=== PATIENT | female | born 1955 | race African-American/Black ===

== ENCOUNTER 2018-03-23 10:25 | Inpatient (IN) | payer SELFPAY ==
[2018-03-23 12:26] LABS: Hemoglobin 10.1 g/dL (12.0-16.0); Mean Corpuscular HGB CONC 29.9 g/dL (32.0-36.0); Mean Corpuscular Hemoglobin 22.3 pg (27.0-31.0); Mean Corpuscular Volume 74.6 fl (81.0-99.0); Mean Platelet Volume 9.4 fL (7.4-10.4); Platelet Count 320 thou/uL (130-400); RBC Distribution Width 17.9 % (11.5-14.5); Red Blood Cell (RBC) Count 4.52 mill/uL (4.20-5.40); White Blood Cell (WBC) Count 8.6 thou/uL (4.8-10.8)
[2018-03-23 12:36] LABS: ALT (SGPT) 19 U/L (8-55); AST (SGOT) 17 U/L (5-34); Albumin 3.8 g/dL (3.4-4.8); Alkaline Phosphatase 55 U/L (40-150); Anion Gap 14 mmol/L (10-20); BUN (Urea Nitrogen) 9 mg/dL (9.8-20.1); Bilirubin, Total 0.4 mg/dL (0.2-1.2); Calc. Creatinine Clearance 0 mL/min (70-130); Calcium 9.8 mg/dL (7.8-10.44); Carbon Dioxide 29 mmol/L (23-31); Chloride 99 mmol/L (98-107); Estimated GFR-MDRD Greater than 90; Globulin 2.7 g/dL (2.4-3.5); Glucose 105 mg/dL (80-115); Lipase 16 U/L (8-78); Potassium 3.7 mmol/L (3.5-5.1); Protein, Total 6.5 g/dL (6.0-8.3); Sodium 138 mmol/L (136-145)
[2018-03-23 12:46] LABS: #Eosinphils 0.2 thou/uL (0.0-0.7); #Lymphocytes 1.8 thou/uL (1.20-3.40); #Monocytes 0.8 thou/uL (0.11-0.59); #Neutrophils 5.8 thou/uL (1.40-6.50); %Basophils 0.4 % (0.0-1.0); %Lymphocytes 20.6 % (21.0-51.0); %Monocytes 9.6 % (0.0-10.0); %Neutrophils 67.4 % (42.0-75.0); Elliptocytes SLIGHT = 2-5 cells (100X) (0-1/hpf); Hypochromia MODERATE=16-30 cells (100X) (0-5/hpf); MDiff Complete? YES; Microcytosis MODERATE=15-30 cells (100X) (0-5/hpf); Ovalocytes SLIGHT = 2-5 cells (100X) (0-1/hpf); PLT Morphology Comment Appears Adequate; Polychromasia MODERATE = 3-4 cells (100X) (0-2/hpf)
[2018-03-23 13:02] LABS: CKMB 0.9 ng/mL (0-6.6)
[2018-03-23] MEDS ORDERED: Ondansetron ODT 4 MG TAB ONE (13:34)
--- NOTE | 2018-03-23 13:42 | ULT ---
ULTRASOUND GALLBLADDER RIGHT UPPER QUADRANT: HISTORY: Chest pain. Abdominal pain. COMPARISON: None. FINDINGS: The visualized portion of the pancreas is unremarkable. The liver measures 13 cm in length. The gallbladder is normal. The common bile duct is normal. Sonographic Garcia sign is negative. No pericholecystic fluid. The right kidney measures 11 x 5.1 x 5.7 cm. The portal vein shows patent antegrade flow. IMPRESSION: 1. No acute abnormality. 2. No gallbladder pathology. POS: [facility]
[2018-03-23 15:01] LABS: Bilirubin Negative (Negative); Blood, Urine Negative (Negative); Clarity CLEAR (Clear); Glucose, Urine (Dipstick) Negative (Negative); Leukocyte Negative (Negative); Nitrite Negative (Negative); Protein, Urine (Dipstick) Negative (Neg-Trace); pH, Urine 6.5 (5.0-9.0)
--- NOTE | 2018-03-23 16:06 | CT ---
CT ABDOMEN AND PELVIS WITH ORAL AND IV CONTRAST: HISTORY: Nausea, vomiting, abdominal pain, and syncope. FINDINGS: Comparison is made with the exam of 11/01/16. The visualized lung snow are unremarkable. There is a large left Bochdalek's hernia with intrathor acic herniation of the stomach and portions of the pancreas. This is stable since the last exam. There is a tiny low-density lesion in the left lobe of the liver. There are calcified granulomas in the liver and spleen. No calcified gallstones are seen. The pancreas, adrenal glands, and left kidn ey are normal. A small low-density lesion in the right kidney is again seen, likely a cyst. No free air, free fluid, or lymphadenopathy is noted in the abdomen or pelvis. There are vascular ca lcifications without evidence of aneurysmal dilatation of the abdominal aorta. There are postop baker ges of hysterectomy. No calcified gallstones are seen. There are vascular calcifications without ev idence of aneurysmal dilatation of the abdominal aorta. There are degenerative changes in the spine. A small umbilical hernia with an nonobstructed loop of small bowel is again seen. The small bowel lo ops are not abnormally dilated. There is colonic diverticulosis without evidence of diverticulitis. A normal-appearing appendix is present. IMPRESSION: 1. Large left-sided Bochdalek's hernia containing nondilated stomach and portion of the pancreas. 2. Small umbilical hernia containing unobstructed loop of small bowel. 3. Colonic diverticulosis without diverticulitis. POS: [facility]
[2018-03-23 17:23] LABS: Troponin I 0.037 ng/mL (< 0.028)
[2018-03-23 18:20] VITALS: BMI 40.3
[2018-03-23] MEDS ORDERED: Sodium Chloride 0.9% 1,000 ML IV SCH (18:30)
[2018-03-23] MEDS ORDERED: Ondansetron ODT 4 MG TAB SL PRN (19:21)
[2018-03-23] MEDS ORDERED: Ondansetron HCl/PF 4 MG/2 ML Vial IVP PRN (19:21)
[2018-03-23] MEDS ORDERED: PROVENTIL INHALER 6.7 G (200 INHALATIONS) INH PRN (19:58)
[2018-03-23] MEDS ORDERED: HYDROcodone/Acetaminophen 5/325 mg Tablet PO PRN ×2 (19:58→20:18)
[2018-03-23] MEDS ORDERED: Furosemide 20 MG TAB PO PRN (19:58)
[2018-03-23 20:24] LABS: Troponin I 0.038 ng/mL (< 0.028)
[2018-03-23] MEDS ORDERED: Dextrose 50% Abboject 50 ML SYRINGE SLOW IVP PRN (20:27)
[2018-03-23] MEDS ORDERED: HumaLOG 300 UNITS/3 ML VIAL SC PRN (20:27)
[2018-03-23] MEDS ORDERED: Dextrose 5% in Water 1,000 ML IV PRN (20:27)
[2018-03-23] MEDS: Sodium Chloride 0.9% 500 ML IV SCH (20:37)
[2018-03-23 21:08] LABS: #Eosinphils 0.2 thou/uL (0.0-0.7); #Lymphocytes 1.9 thou/uL (1.20-3.40); #Monocytes 0.9 thou/uL (0.11-0.59); #Neutrophils 5.5 thou/uL (1.40-6.50); %Basophils 0.5 % (0.0-1.0); %Eosinophils 2.4 % (0.0-10.0); %Lymphocytes 22.5 % (21.0-51.0); %Monocytes 10.1 % (0.0-10.0); %Neutrophils 64.5 % (42.0-75.0); Hemoglobin 9.7 g/dL (12.0-16.0); Mean Corpuscular HGB CONC 30.8 g/dL (32.0-36.0); Mean Corpuscular Hemoglobin 22.2 pg (27.0-31.0); Mean Corpuscular Volume 72.2 fL (78.0-98.0); Mean Platelet Volume 8.8 fL (7.4-10.4); Platelet Count 328 thou/uL (130-400); RBC Distribution Width 17.7 % (11.5-14.5); Red Blood Cell (RBC) Count 4.38 mill/uL (4.20-5.40); White Blood Cell (WBC) Count 8.6 thou/uL (4.8-10.8)
--- NOTE | 2018-03-23 23:10 | CT ---
CT BRAIN NONCONTRAST: 03/23/18 HISTORY: 62-year-old female with dizziness, syncope, and generalized weakness. FINDINGS: There is no midline shift or any other mass effect. There is no evidence of acute intracranial hemor rhage, large cortical infarct, obstructive hydrocephalus, or extraaxial fluid collection. The calvar ium is intact. IMPRESSION: No acute intracranial findings. sameer [] POS: [facility]
[2018-03-23] MEDS: Sodium Chloride 0.9% 1,000 ML IV SCH (23:14)
[2018-03-23] MEDS: Meclizine HCl 12.5 MG TAB PO PRN (23:15)
[2018-03-23] MEDS ORDERED: Promethazine HCl 25 MG/ML VIAL SLOW IVP PRN (23:34)
[2018-03-23] MEDS: Promethazine HCl 25 MG/ML VIAL SLOW IVP SCH (23:49)
[2018-03-24] MEDS: Meclizine HCl 12.5 MG TAB PO PRN (00:28)
[2018-03-24] MEDS: Gabapentin 300 MG CAP PO SCH ×4 (00:28→19:48)
[2018-03-24] MEDS ORDERED: Lorazepam 2 MG/ML VIAL SLOW IVP SCH (01:45)
--- NOTE | 2018-03-24 02:18 | HP ---
TIME OF EVALUATION: 08:00 p.m. CODE STATUS: FULL CODE. CHIEF COMPLAINT: Syncope. HISTORY OF PRESENT ILLNESS: This is a 62-year-old female patient with past medical history of congestive heart failure, previous [place], diabetes, RA, on steroids, hypertension, came to the hospital after having an episode of syncope. The patient was in the restroom, she felt nauseated, vomit, had an episode of orthostatic hypotension, and passed out, did not hit the floor because the patient was with a family member that was helping her in the bathroom. The patient has had no recent cardiac workup in the past 2 years, last colonoscopy was about 10 years ago, she did report having these episodes in the past, but has not been this severe. REVIEW OF SYSTEMS: General: The patient reported no fever, no chills, generalized weakness. Respiratory: No cough, no sputum production, no shortness of breath. Cardiovascular: No palpitations, no chest pain. Gastrointestinal: The patient reported nausea, vomiting. No diarrhea. Abdominal pain was reported. CLOTHING SORTER: The patient reported spells of dizziness, no headache. She did report feeling lightheaded. Genitourinary: No burning on urination. EXTREMITIES: No leg swelling. All other systems were reviewed and negative except for the findings mentioned above. PAST MEDICAL HISTORY: Coronary artery disease, hypertension, diabetes, RA. PAST SURGICAL HISTORY: Hysterectomy. PSYCHIATRIC HISTORY: No previous psychiatric history. SOCIAL HISTORY: No alcohol, no drugs. No smoking history. FAMILY HISTORY: Reviewed and noncontributory for current presentation. PHYSICAL EXAMINATION: GENERAL APPEARANCE: The patient is alert, oriented, not in acute distress. HEENT: Eyes: Normal conjunctivae. Moist oral mucosa. RESPIRATORY: Bilateral air entry, no rales, no wheezing, symmetric expansion. CARDIOVASCULAR: Normal rate, regular rhythm, occasionally tachycardic, no murmurs, no gallop, no edema. ABDOMEN: Soft, normal bowel sounds. MUSCULOSKELETAL: Baseline range of motion and strength, no tenderness. SKIN: Warm and intact. No pallor, no rash. NEUROLOGIC: The patient is at her baseline sensory. No history of any new focal weakness. Cranial nerve seems to be intact. PSYCHIATRIC: The patient has no anxiety, oriented, optimal judgment. LABORATORY DATA: Labs are reviewed. The patient has white count 9.6, hemoglobin 10.1, platelet count 29. Chemistry: Sodium 138, potassium 3.7, chloride 99, carbon dioxide 29, anion gap 14, BUN 9, creatinine 0.77, GFR greater than 90. Troponin has been trended. The patient had initial troponin 0.020; second troponin at 4:00 p.m., 0.037; third troponin at 8:00 p.m., 0.038; next troponin to be done at 4:00 a.m. RADIOLOGY: Radiology was reviewed. 1. A CAT scan of the abdomen and pelvis with oral and IV contrast show, both hernia containing nondilated stomach and portion of the pancreas. 2. Small umbilical hernia containing a nonobstructed loop of small bowel. 3. Colonic diverticulosis without diverticulitis. 4. Abdominal ultrasound showed no acute abnormalities, no gallbladder pathology. Brain CT showed no acute intracranial findings. EKG as discussed with her performing physician from the ER. The patient has normal sinus rhythm at a rate of 77 with occasional T-waves abnormalities that are nonspecific, no ventricular hypertrophy. ASSESSMENT AND PLAN: The patient was admitted to the hospital for the following medical condition: 1. Syncope: The patient had an episode of syncope with total loss of consciousness, she has had this episode in the past, but this one was very severe. The patient is also having episodes of dizzy spells where she gets sweaty; however, when she had those in the hospital, the vital signs have been stable. No telemetry abnormalities. We will do workup in the morning with echo , carotid Doppler.d dimer added due to persistent tachycardia, would proceed with ct angio if positive. Depending on those results, we will plan for further workup. Continue to monitor on tele 2. Uncontrolled hypertension. The patient presented with systolic blood pressure in the 150s, this has gotten better during the stay. Reconcile home medications, adjust the treatment as needed. 3. History of diabetes, this is controlled. Reconcile home medications, adjust the treatment as needed. 4. Mildly elevated troponin in the range of 0.037 and 0.038, we will trend, acute intervention at this point. EKG with no new ischemic findings. We will monitor. Adjust the treatment as needed. 5. History of microcytic anemia, will be related to chronic blood loss, patient 's recommendation is to go for colonoscopy, this can be done as outpatient. 6. History of rheumatoid arthritis, on chronic steroids, we will continue for now. This problem is chronic, seems to be stable 7. History of chronic obstructive pulmonary disease, this problem is chronic, seems to be stable at this point. 8. Add deep venous thrombosis prophylaxis. MTDD
[2018-03-24] MEDS: guaiFENesin 200 MG TAB PO SCH ×5 (05:41→23:07)
[2018-03-24 07:01] LABS: Hemoglobin 10.1 g/dL (12.0-16.0); Mean Corpuscular HGB CONC 29.8 g/dL (32.0-36.0); Mean Corpuscular Hemoglobin 22.1 pg (27.0-31.0); Mean Corpuscular Volume 74.4 fL (78.0-98.0); Platelet Count 303 thou/uL (130-400); RBC Distribution Width 17.8 % (11.5-14.5); Red Blood Cell (RBC) Count 4.55 mill/uL (4.20-5.40); White Blood Cell (WBC) Count 8.2 thou/uL (4.8-10.8)
[2018-03-24 07:05] LABS: Anion Gap 15 mmol/L (10-20); BUN (Urea Nitrogen) 8 mg/dL (9.8-20.1); Calc. Creatinine Clearance 134 mL/min (70-130); Calcium 9.6 mg/dL (7.8-10.44); Carbon Dioxide 29 mmol/L (23-31); Chloride 99 mmol/L (98-107); Estimated GFR-MDRD Greater than 90; Glucose 83 mg/dL (80-115); Potassium 3.3 mmol/L (3.5-5.1); Sodium 140 mmol/L (136-145)
[2018-03-24 07:09] LABS: Troponin I 0.113 ng/mL (< 0.028)
[2018-03-24 07:36] LABS: Band 3 % (5-11); Eosinophils 5 % (0-10); Hypochromia SLIGHT = 6-15 cells (100X) (0-5/hpf); Lymphocytes 12 % (21-51); MDiff Complete? YES; Metamyelocyte 1 % (0-0); Microcytosis MODERATE=15-30 cells (100X) (0-5/hpf); Monocytes 11 % (0-10); Neutrophil 68 % (42-75); PLT Morphology Comment Appears Adequate; Polychromasia MODERATE = 3-4 cells (100X) (0-2/hpf)
[2018-03-24] MEDS: Sodium Chloride 0.9% 500 ML IV SCH (07:42)
--- NOTE | 2018-03-24 09:05 | PDOC.PN ---
- Subjective Encounter Start Date: 03/24/18 Encounter Start Time: 09:03 Ms. Anand was seen today in follow-up. She was very restless last night. Her daughter says she appeared very short of breath and anxious. She couldn't find a comfortable position. She was noted to have lower oxygen saturations when she takes her oxygen off, down to the 70's. She denies chest pain now, and the abdominal pain is mainly on the flanks. - Objective Resuscitation Status: Resuscitation Status FULL:Full Resuscitation MAR Reviewed: Yes Vital Signs & Weight: Vital Signs (12 hours) Temp Pulse Resp BP BP Pulse Ox 03/24/18 08:00 98.7 F 116 H 12 03/24/18 07:30 70 L 03/24/18 07:15 98.7 F 116 H 12 139/84 94 L 03/24/18 00:28 119 H 18 144/83 H 96 03/23/18 22:10 82 18 130/63 I&O: 03/23/18 03/24/18 03/25/18 06:59 06:59 06:59 Intake Total 670 Balance 670 Result Diagrams: 03/24/18 06:40 03/24/18 06:40 Additional Labs: Accuchecks 03/23/18 20:21 POC Glucose 98 Phys Exam - Physical Examination HEENT: PERRLA Respiratory: no wheezing, no rales, no rhonchi, clear to auscultation bilateral heart rate is rapid, no murmurs Gastrointestinal: soft, non-tender, positive bowel sounds Musculoskeletal: edema present Dx/Plan (1) Syncope Code(s): R55 - SYNCOPE AND COLLAPSE Status: Acute (2) Insulin dependent type 2 diabetes mellitus, controlled Code(s): E11.9 - TYPE 2 DIABETES MELLITUS WITHOUT COMPLICATIONS; Z79.4 - LONGTERM (CURRENT) USE OF INSULIN Status: Chronic Comment: Resume home NPH 35u HS, ADA, accuchecks (3) Morbid obesity Code(s): E66.01 - MORBID (SEVERE) OBESITY DUE TO EXCESS CALORIES Status: Chronic (4) Rheumatoid arthritis Code(s): M06.9 - RHEUMATOID ARTHRITIS, UNSPECIFIED Status: Chronic Qualifiers: Laterality: unspecified laterality Comment: Resume home Gabapentin, Motrin and Prednisone. (5) Hypertension Code(s): I10 - ESSENTIAL (PRIMARY) HYPERTENSION Status: Acute - Plan * Syncope- I suspect this is vagal medicated- will await Echo results as well as carotid dopplers * Tachycardia, and hypoxemia, as well as apprehension - agree with CTA of the chest to rule of PE * Abdominal pain- difficult to characterize- this has improved some, and CT scan of the abdomen is negative for obstruction , even with the hernia, but this appears to be an old finding- if this persists will need to consult GI. * RUPAL- patient uses CPAP at home- will need to restart this during the hospitalization * HTN- blood pressure is stable * DM- blood glucose is stable * Elevated troponin- ? etiology, if she has a PE this would explain this, if not , then will consider cardiology work-up, as the nausea, and upper abdominal pain is worse with movement, and maybe this is an anginal equivalent
[2018-03-24] MEDS: Sodium Chloride 0.9% 1,000 ML IV SCH (09:54)
[2018-03-24] MEDS: Enoxaparin Sodium 40 MG/0.4 ML SYRINGE SC SCH ×2 (10:10→12:20)
[2018-03-24] MEDS: predniSONE 20 MG TAB PO SCH ×2 (10:10→11:38)
[2018-03-24] MEDS: Lisinopril/Hydrochlorothiazide 20/25 mg Tablet PO SCH ×2 (10:11→12:20)
--- NOTE | 2018-03-24 11:58 | ULT ---
CAROTID ULTRASOUND: Comparison: 04-27-15 History: Syncope. Technique: Multiplanar grayscale and color doppler images were obtained in a carotid ultrasound. Spec tral analysis of the doppler waveforms were performed. FINDINGS: There is no significant plaque in either common or internal carotid artery. Examination was limited s econdary to tortuous vessels, heavy breathing, and snoring during the examination. Peak systolic velocity in the right ICA is 53 cm/sec. Peak systolic velocity in the right CCA is 89 c m/sec. The right ICA/CCA ratio is 0.6. Peak systolic velocity in the left ICA is 84 cm/sec. Peak systolic velocity in the left CCA is 174 cm /sec. The left ICA/CCA ratio is 0.5. Neither vertebral artery could be visualized. IMPRESSION: No evidence of hemodynamically significant stenosis of the carotid arteries. POS: [facility]
--- NOTE | 2018-03-24 12:05 | CT ---
CONTRAST ENHANCED CTA CHEST: History: Elevated D-Dimer. Technique: Contrast enhanced CTA of the chest was performed. 2D and 3D reconstructed images were perf ormed on an independent 3D workstation. FINDINGS: Left hilar and subcarinal lymph node calcifications seen. An area of small focal calcifications seen in the area of scarring in the left lower lobe. There is elevation of the left hemidiaphragm. Areas of patchy airspace opacity seen in the right upper lobe seen on image 31. This was not present on the patient's previous comparison CT from 04-26-15. This may represent an area of newly developed m ass versus focal pneumonia. Follow up films to resolution recommended. No definite evidence of abnormality seen in the thoracic aorta. No evidence of filling defects seen i n the pulmonary arteries to suggest pulmonary emboli. There is a large calcified lesion just inferior to the left thyroid lobe. This is stable and unchange d, likely representing calcified lymph node, unchanged since the 2015 exam. IMPRESSION: 1. No evidence of filling defects seen to suggest pulmonary emboli. 2. Newly developed of opacity in the right upper lobe possibly representing an area of scar versus ma ss versus pneumonia. Follow up films to resolution recommended. POS: [facility]
[2018-03-24 14:21] LABS: Troponin I 0.112 ng/mL (< 0.028)
[2018-03-24 17:37] LABS: Troponin I 0.101 ng/mL (< 0.028)
[2018-03-24] MEDS: Pantoprazole 40 MG VIAL IVP SCH (19:48)
[2018-03-24] MEDS: Promethazine HCl 25 MG/ML VIAL SLOW IVP SCH (23:06)
--- NOTE | 2018-03-25 01:44 | CON ---
DATE OF CONSULTATION: 03/24/2018 REASON FOR CONSULTATION: Abdominal pain. CONSULTING PHYSICIAN: Dr. Manuel Albarran. HISTORY OF PRESENT ILLNESS: The patient is a 62-year-old -Turkmen female with past medical history of coronary artery disease/myocardial infarction, congestive heart failure, diabetes, rheumatoid arthritis on steroid administration, and hypertension, initially presenting with complaints of syncope and abdominal pain. She was initially admitted to the hospital for evaluation related to vasovagal syncope experienced at home prior to admission where she had an episode of orthostatic hypotension associated with diaphoresis and passed out on the floor of her bathroom. However, on admission, she also endorsed increased abdominal pain located in the left upper quadrant and right upper abdominal quadrants. She states that this pain has been going on intermittently for the last month and would occur approximately one time per week and lasts for 30-45 minutes at a time. The pain is characterized as a gripping type pain, radiating to the left flank and left lower chest and would reach a severity of approximately 6-7/10. The pain is worse with increased constipation and not having a bowel movement as well as increased abdominal gas and better with pressure to the left upper quadrant, left lower ribs as well as taking hydrocodone for pain. Upon questioning, she has approximately one solid to semisolid bowel movement every 2-3 days. This is associated with increased straining in order to facilitate defecation. She is currently on Amitiza as an outpatient, but still having these continued problems of constipation. Currently, denies any nausea, vomiting, fevers, chills, shortness of breath, diarrhea, dysphagia or odynophagia or weight loss. Of note, her most recent colonoscopy was approximately 10 years ago and she is due for repeat colonoscopy and had been scheduled to be seen in the clinic, but has not colonoscopy been able to do so yet. REVIEW OF SYSTEMS: A 10-category review of systems was obtained with all responses negative except for the pertinent positives as listed in the HPI. PAST MEDICAL HISTORY: As per HPI. PAST SURGICAL HISTORY: Hysterectomy. SOCIAL HISTORY: Denies any tobacco, alcohol or illicit drug use. FAMILY HISTORY: Denies any GI malignancies. PHYSICAL EXAMINATION: VITAL SIGNS: Temperature 98.2, pulse 114, blood pressure 122/68, respiratory rate 18, satting 96% on 3 liters nasal cannula. GENERAL: The patient is sitting in bed at bedside, in no acute distress with no conversational dyspnea. Alert and oriented x4. NECK: Supple. No JVD noted. CARDIOVASCULAR: Tachycardic rate with regular rhythm. No discernible murmurs, gallops or rubs. RESPIRATORY: Clear to auscultation bilaterally with no discernible wheezes or rales. ABDOMEN: Normoactive bowel sounds, soft, nontender, nondistended. EXTREMITIES: No cyanosis, clubbing or edema. LABORATORY DATA: CBC with a white blood cell count of 8.2, hemoglobin 10.1, hematocrit 33.9, platelets 303. Chemistry with a sodium of 140, potassium 3.3, chloride 99, CO2 of 29, BUN 8, creatinine 0.74, glucose 83. D-dimer elevated at 0.67. IMAGING DATA: CT of the chest obtained on 03/24/2018 showed left hilar and subcarinal calcified lymph nodes as well as patchy airspace disease, which may represent pneumonia. No evidence of pulmonary embolism. CT abdomen and pelvis obtained on 03/24/2018 showed a large left Bochdalek hernia with intrathoracic herniation of the stomach and portion of the pancreas which is stable when compared to prior examinations. There was no evidence of free air or fluid, but there was also a small umbilical hernia with nonobstructive small bowel within the hernia itself and contrast seen within the segment of small bowel as well. No evidence of diverticulitis. ASSESSMENT AND PLAN: The patient is a 62-year-old -Turkmen female with past medical history of coronary artery disease/myocardial infarction, congestive heart failure, diabetes, rheumatoid arthritis and hypertension, presenting with increased upper abdominal pain. Upper abdominal pain: The patient is presenting with intermittent history of increased left upper quadrant abdominal pain that has been present for the last month, occurring approximately one time per week and would last for 30-45 minutes at a time. This pain seems to be worse with constipation and not having a bowel movement. When viewed in light of her chronic narcotic requirement for chronic pain and frequent use of hydrocodone, this would potentially contribute to her current constipation type symptoms and could potentially generate left upper quadrant and right upper quadrant abdominal pain. However, she does have a large Bochdalek hernia with herniation of a portion of her stomach and the pancreas within the chest cavity which could potentially generate a left upper quadrant, left chest pain. Differential could include the Bochdalek hernia, constipation, gastritis, peptic ulcer disease (especially with concurrent administration of steroids, although she is taking PPI, which will be protective), gastroesophageal reflux disease, median arcuate ligament syndrome (much less likely) and/or GI neoplasm (much less likely). At this time, the majority of her symptoms seem to be related more to constipation and the patient would benefit from a bowel regimen while here in the hospital. RECOMMENDATIONS: 1. We will place the patient on naloxegol 12.5 mg daily for opiate antagonism within the GI tract in attempt to help alleviate constipation. 2. I will also add MiraLax 1 capful/17 grams daily in an attempt to facilitate having a bowel movement. 3. While the patient may be a poor surgical candidate, would consider surgical evaluation of this Bochdalek hernia as it may be contributing to her left upper quadrant abdominal pain. 4. Defer to primary team for evaluation of elevated troponins as this may contribute to left upper quadrant abdominal pain as well. 5. Endoscopic intervention is not necessarily planned at this time. We will continue to monitor. Please call with any questions. [facility]
[2018-03-25] MEDS: guaiFENesin 200 MG TAB PO SCH ×3 (05:19→18:13)
[2018-03-25 06:25] LABS: #Lymphocytes 1.3 thou/uL (1.20-3.40); #Monocytes 1.2 thou/uL (0.11-0.59); %Basophils 0.4 % (0.0-1.0); %Eosinophils 0.4 % (0.0-10.0); %Lymphocytes 13.6 % (21.0-51.0); %Monocytes 12.2 % (0.0-10.0); %Neutrophils 73.3 % (42.0-75.0); Hemoglobin 9.5 g/dL (12.0-16.0); Mean Corpuscular HGB CONC 29.9 g/dL (32.0-36.0); Mean Corpuscular Hemoglobin 22.2 pg (27.0-31.0); Mean Corpuscular Volume 74.4 fL (78.0-98.0); Mean Platelet Volume 9.7 fL (7.4-10.4); Platelet Count 328 thou/uL (130-400); RBC Distribution Width 17.8 % (11.5-14.5); Red Blood Cell (RBC) Count 4.28 mill/uL (4.20-5.40); White Blood Cell (WBC) Count 9.5 thou/uL (4.8-10.8)
[2018-03-25 06:57] LABS: Anion Gap 16 mmol/L (10-20); BUN (Urea Nitrogen) 19 mg/dL (9.8-20.1); Calc. Creatinine Clearance 47 mL/min (70-130); Calcium 9.6 mg/dL (7.8-10.44); Carbon Dioxide 29 mmol/L (23-31); Chloride 97 mmol/L (98-107); Estimated GFR-MDRD 29; Glucose 117 mg/dL (80-115); Potassium 4.2 mmol/L (3.5-5.1); Sodium 138 mmol/L (136-145)
[2018-03-25] MEDS: Lisinopril/Hydrochlorothiazide 20/25 mg Tablet PO SCH (08:38)
[2018-03-25] MEDS: Gabapentin 300 MG CAP PO SCH ×3 (08:38→19:57)
[2018-03-25] MEDS: Pantoprazole 40 MG VIAL IVP SCH ×2 (08:39→19:57)
[2018-03-25] MEDS: predniSONE 20 MG TAB PO SCH (08:40)
[2018-03-25] MEDS: Enoxaparin Sodium 40 MG/0.4 ML SYRINGE SC SCH (08:41)
[2018-03-25] MEDS: Polyethylene Glycol 3350 17 GM Packet PO SCH (08:41)
--- NOTE | 2018-03-25 11:34 | PDOC.PN ---
- Subjective Encounter Start Date: 03/25/18 Encounter Start Time: 11:33 Ms. Anand was seen today in follow-up. She says the abdominal pain has improved. She did not have another episode where she felt as if she were going to pass out. - Objective Resuscitation Status: Resuscitation Status FULL:Full Resuscitation MAR Reviewed: Yes Vital Signs & Weight: Vital Signs (12 hours) Temp Pulse Resp BP BP Pulse Ox 03/25/18 08:38 105 H 117/89 03/25/18 08:00 98.1 F 105 H 18 117/89 100 03/25/18 03:54 99.5 F 104 H 15 118/83 93 L 03/24/18 23:49 98.2 F 109 H 18 96/52 L 100 Weight Weight 232 lb 8 oz I&O: 03/24/18 03/25/18 03/26/18 06:59 06:59 06:59 Intake Total 670 Balance 670 Result Diagrams: 03/25/18 05:31 03/25/18 05:31 Additional Labs: Accuchecks 03/25/18 03/25/18 03/24/18 10:51 06:02 20:51 POC Glucose 145 H 141 H 162 H 03/24/18 03/24/18 16:26 10:48 POC Glucose 151 H 86 Phys Exam - Physical Examination HEENT: PERRLA Respiratory: no wheezing, no rales, no rhonchi, clear to auscultation bilateral Cardiovascular: RRR, no significant murmur, no rub Gastrointestinal: soft, non-tender, positive bowel sounds Musculoskeletal: no edema Dx/Plan (1) Syncope Code(s): R55 - SYNCOPE AND COLLAPSE Status: Acute (2) Insulin dependent type 2 diabetes mellitus, controlled Code(s): E11.9 - TYPE 2 DIABETES MELLITUS WITHOUT COMPLICATIONS; Z79.4 - FCI (CURRENT) USE OF INSULIN Status: Chronic Comment: Resume home NPH 35u HS, ADA, accuchecks (3) Morbid obesity Code(s): E66.01 - MORBID (SEVERE) OBESITY DUE TO EXCESS CALORIES Status: Chronic (4) Rheumatoid arthritis Code(s): M06.9 - RHEUMATOID ARTHRITIS, UNSPECIFIED Status: Chronic Qualifiers: Laterality: unspecified laterality Comment: Resume home Gabapentin, Motrin and Prednisone. (5) Hypertension Code(s): I10 - ESSENTIAL (PRIMARY) HYPERTENSION Status: Acute - Plan * Suspect Vaso-Vagal- no specific treatment need * Pneumonia- Continue Levaquin- can be changed to oral on discharge * Acute renal failure- this is likely as a result of the contrast from the CTA- will give IV fluids, and hold Lisinopril- re-check in the AM * RUPAL- continue nocturnal CPAP * Abdominal pain- GI recommendations appreciated- she is on a trial of Movanik . * Hopefully home in AM if her renal function has improved, and abdominal pain continue to be better
[2018-03-25] MEDS: Sodium Chloride 0.9% 1,000 ML IV SCH ×3 (12:13→19:59)
--- NOTE | 2018-03-25 13:53 | PRG ---
DATE OF SERVICE: 03/25/2018 SUBJECTIVE: The patient is without complaint. She has not had any severe episode of left upper quad rant pain. PHYSICAL EXAMINATION: VITAL SIGNS: Temperature 97.6, blood pressure 134/89, pulse 101. GENERAL: She is alert, conversant, in no distress. CARDIOVASCULAR: Shows normal S1, S2 regular rate and rhythm. CHEST: Shows normal breath sounds. ABDOMEN: Very protuberant, soft. There is tenderness in the high upper lateral quadrant. No skin r agueda. She has good bowel sounds. EXTREMITIES: Shows no edema. LABORATORY DATA: WBC is 9.5, hemoglobin 9.5, platelet count of 328. Sodium 138, potassium 4.2, chlo ride 97, CO2 of 29, creatinine 2.1, BUN of 19. ASSESSMENT: 1. Episodic severe left upper quadrant pain, likely from large left diaphragmatic hernia. Patient h as no obstructive symptoms and no signs of any gastric volvulus either on imaging study or by symptom s. 2. Constipation exacerbated by pain medication, likely not the cause of her pain. RECOMMENDATIONS: 1. In the overall context of her other lung issue and heart issue, I would favor conservative therap y at this point with the hernia unless her pain is more frequent, severe or debilitating. 2. Continue Movantik and MiraLax for constipation. 3. I will follow the patient inpatient and once discharged as outpatient.
[2018-03-26] MEDS: guaiFENesin 200 MG TAB PO SCH ×3 (00:32→12:38)
[2018-03-26 05:21] LABS: Anion Gap 18 mmol/L (10-20); BUN (Urea Nitrogen) 24 mg/dL (9.8-20.1); Calc. Creatinine Clearance 51 mL/min (70-130); Calcium 9.1 mg/dL (7.8-10.44); Carbon Dioxide 21 mmol/L (23-31); Chloride 104 mmol/L (98-107); Estimated GFR-MDRD 31; Glucose 119 mg/dL (80-115); Potassium 4.9 mmol/L (3.5-5.1); Sodium 138 mmol/L (136-145)
[2018-03-26] MEDS: Pantoprazole 40 MG VIAL IVP SCH (09:42)
[2018-03-26] MEDS: Gabapentin 300 MG CAP PO SCH (09:43)
[2018-03-26] MEDS: predniSONE 20 MG TAB PO SCH (09:43)
[2018-03-26] MEDS: Polyethylene Glycol 3350 17 GM Packet PO SCH (09:44)
[2018-03-26] MEDS: Enoxaparin Sodium 40 MG/0.4 ML SYRINGE SC SCH (09:44)
[2018-03-26] MEDS: Sodium Chloride 0.9% 1,000 ML IV SCH (09:44)
--- NOTE | 2018-03-26 11:35 | DIS ---
DATE OF ADMISSION: 03/24/2018 DATE OF DISCHARGE: 03/26/2018 DIAGNOSES AT THE TIME OF DISCHARGE: 1. Syncope diagnosed as vasovagal. 2. Pneumonia, improved. 3. Insulin-dependent diabetes mellitus type 2. 4. Rheumatoid arthritis. 5. Morbid obesity. 6. Hypertension. 7. Acute renal insufficiency, most likely secondary to IV dye. 8. Abdominal pain in the setting of large left diaphragmatic hernia. 9. Exacerbation of her chronic constipation related to the pain medication. CONSULTATIONS: Dr. Elder Weems for Gastrointestinal Service and Dr. Jeronimo Ricketts for Gastrointestinal Service. IMAGES: 1. Brain CT, no active intracranial disease. 2. Abdominal ultrasound, no acute abnormality. 3. CT of the pelvis and abdomen showed; 1) large left-sided ____ hernia containing nondilated stomac h and portion of the pancreas; 2) small umbilical hernia containing nonobstructed loop of small bowel ; 3) colonic diverticulosis without diverticulitis. 4. CT angiogram of the chest which showed; 1) no evidence of filling defects seen to suggest pulmon rosa emboli; 2) newly developed opacity in the right upper lobe, possibly representing an area of scar versus mass, versus pneumonia. 5. Echocardiogram showed left ventricle size normal. Severe concentric left ventricular hypertrophy . Ejection fraction was estimated at 65-70%, left atrium normal, right atrium is normal in size. No evidence of any significant valvular disease. 6. Carotid Doppler study showed no evidence of hemodynamically significant stenosis of the carotid a rteries. HOSPITAL COURSE: The patient is a 62-year-old female with past medical history posi tive for congestive heart failure, previous [place], diabetes, rheumatoid arthritis on steroids, hypertens ion who came to the hospital after having an episode of syncope. Apparently, she was in the restroom , she felt nauseated. She vomited. She had episode of orthostatic hypotension and passed out. She did not hit the floor because the patient was with a family member at this time who was helping her i n the bathroom. Apparently, she had colonoscopy done approximately 10 years ago. She did not have a ny workup done on her heart in the last 2 years. At the time of emergency room visit, her white count was 9.6, hemoglobin 10.1, platelet count 229. S odium 138, potassium 3.7, chloride 99, CO2 29, BUN 9, creatinine 0.77, hemoglobin was 10.1. Initial troponin 0.020, second 0.037 and the third set was 0.038. Her electrocardiogram showed normal sinus rhythm with the rate of 77 with occasional T-wave abnormalities that were nonspecific. The patient g ot admitted to the telemetry floor. She did not have any abnormalities on her telemetry. She underw ent full workup with echo, carotid Doppler, CT angiogram, all of them were negative. Her creatinine went up to above 2 the next day after she had a CAT scan done and it was felt that this was probably the reason why she went into acute failure, although with IV fluids her creatinine went down quickly and today is 1.5, so her lisinopril was put on hold, but clinically she is doing very well. Her bloo d pressure is 110/79, pulse is 97, temperature is 98.9, respiratory rate is 20, O2 saturations 99% on 3 liters. She was seen on exam before she is discharged, she is feeling great. Her family is with her in the o and they are willing to take her home. She will stay on 1800 calories ADA diet. ACTIVITY: As tolerated. MEDICATIONS AT THE TIME OF DISCHARGE: Prednisone 20 mg once a day, omeprazole 20 mg once a day p.r.n . albuterol/Atrovent q.4h. p.r.n., hydrocodone/APAP 5/325 1-2 tablets twice a day p.r.n., gabapentin 300 mg 3 times a day, guaifenesin 200 mg q.6h. p.o., polyethylene glycol 17 grams once a day, Movanti k 12.5 mg before each meal, levofloxacin 250 mg once a day, and furosemide 20 mg daily p.r.n. She will follow up with her primary care physician in 1 week. Also, she will call Dr. Weems's office who recommends to follow up with him. We will give her 2 prescriptions, one for Movantik, one for le vofloxacin. The patient was seen and examined before she was discharged. Discharge time is more than 30 minutes.
[2018-03-26 12:41] VITALS: BP 133/83; TEMP 99
== END 2018-03-26 14:08 | disposition home or self-care (01) | DRG 312 ==
LOC: ERS 10:25 → OBSVTOIN 18:06 → 2SW 18:06 → 2NO 03-24 14:19
PROVIDERS: ADMIT Emergency Medicine; ATTEND Emergency Medicine
DX: R55 Syncope and collapse (principal); J18.9 Pneumonia, unspecified organism; N17.9 Acute kidney failure, unspecified; Z68.41 Body mass index [BMI] 40.0-44.9, adult; E11.9 Type 2 diabetes mellitus without complications; M06.9 Rheumatoid arthritis, unspecified; E66.01 Morbid (severe) obesity due to excess calories; I11.0 Hypertensive heart disease with heart failure; I50.9 Heart failure, unspecified; K44.9 Diaphragmatic hernia without obstruction or gangrene; G47.33 Obstructive sleep apnea (adult) (pediatric); I25.10 Atherosclerotic heart disease of native coronary artery without angina pectoris; K59.03 Drug induced constipation; J44.9 Chronic obstructive pulmonary disease, unspecified; I25.2 Old myocardial infarction; Z79.52 Long term (current) use of systemic steroids; Z79.899 Other long term (current) drug therapy; T40.2X5A Adverse effect of other opioids, initial encounter; T50.8X5A Adverse effect of diagnostic agents, initial encounter; Y92.239 Unspecified place in hospital as the place of occurrence of the external cause
CPT/HCPCS: 36415; 36416; 70450; 71275; 74177; 76705; 80048; 80053; 81003; 82553; 83690; 84484; 85025; 85379; 93005; 93306; 93880; 94660; A4216; C9113; J1650; J1956; J2060; J2405; J2550; J7506; Q0162

== ENCOUNTER 2018-09-02 10:05 | Outpatient (CLI) | payer MEDICARE, OTHER ==
--- NOTE | 2018-09-02 10:53 | RAD ---
PA AND LATERAL CHEST: Comparison: 04-06-18 History: Dyspnea. FINDINGS: Heart size appears borderline in size. Large hiatal hernia is again noted. The lungs are clear of any infiltrates. IMPRESSION: Stable chest. Large hiatal hernia. POS: DORENEH
== END 2018-09-02 10:06 | disposition home or self-care (01) ==
LOC: RAD 10:05
PROVIDERS: ATTEND Internal Medicine Critical Care Medicine
DX: R06.00 Dyspnea, unspecified (principal); K44.9 Diaphragmatic hernia without obstruction or gangrene
CPT/HCPCS: 71046

== ENCOUNTER 2018-09-14 07:23 | Outpatient (CLI) | payer MEDICARE ==
--- NOTE | 2018-09-14 11:06 | CT ---
CT CHEST WITHOUT CONTRAST: Comparison: 11-01-16, CTA of the chest 03-24-18 FINDINGS: Limited evaluation of mediastinal structures due to lack of IV contrast. No mass, lymphadenopathy, or hematoma. Redemonstration of a left sided diaphragmatic hernia. The maira rity of the stomach extends through the hernia defect. No obvious incarceration or obstruction. Visua lized solid organs are unremarkable. Dependent atelectatic changes in both lower lobes. Stable calcified granuloma in the left lower lobe. No suspicious masses or consolidation. No pleural effusion or pneumothorax. Multiple old right rib fractures are noted. IMPRESSION: 1. Resolution of previously noted opacity in the right upper lobe. 2. Stable left sided diaphragmatic hernia with herniation of the stomach due to the defect. POS: KURTIS
--- NOTE | 2018-09-16 14:33 | PFT ---
PATIENT HISTORY: HEIGHT:57 IN WEIGHT: 225 SMOKER: NEVER HOW LONG: PACKS PER DAY PRODUCTIVE COUGH: LUNG DISEASE: PHYSICIAN INTERPRETATION FINAL REPORT: Patient had good effort and cooperation, but had a hard time with breath hold during DLCO and data maybe inaccurate. PFT data: FVC 1.55 (83%), FEV1 1.31 (90%), FEV1/FVC 0.84 TLC 2.69 (80%), RV 0.90 (60%) DLCO 11.53 (65%) The FEV1 and the FVC fall within the normal limits. The ratio is also normal. There normal contour to the expiratory limb of the flow volume. The inspiratory limb is normal. Residual volume is reduced and total lung capacity is at the lower limits of normal. The diffusion capacity is minimally impaired, but easily corrects for alveolar ventilation. IMPRESSION: Overall, these pulmonary function studies are suggestive of a minimal restrictive process with mild reduction in diffusion capacity that easily corrects for alveolar ventilation. Body habitus maybe contributing to these findings. Clinical and radiographic correlation for interstitial process should be considered. No priors for comparison. Hat And Cap Opener: Horse Identifier: [email or web address]
== END 2018-09-14 07:24 | disposition home or self-care (01) ==
LOC: CP 07:23
PROVIDERS: ATTEND Internal Medicine Critical Care Medicine
DX: J45.909 Unspecified asthma, uncomplicated (principal); M06.9 Rheumatoid arthritis, unspecified; K44.9 Diaphragmatic hernia without obstruction or gangrene; K46.9 Unspecified abdominal hernia without obstruction or gangrene
CPT/HCPCS: 71250; 94060; 94727; 94729

== ENCOUNTER 2019-01-05 08:05 | Day surgery (SDC) | payer MEDICARE ==
[2019-01-04 10:44] VITALS: BMI 45.3
[2019-01-05 09:03] LABS: Hemoglobin 9.6 g/dL (12.0-16.0); Mean Corpuscular Hemoglobin 21.8 pg (27.0-31.0); Mean Corpuscular Volume 75.2 fL (78.0-98.0); Mean Platelet Volume 10.7 fL (7.4-10.4); Platelet Count 230 thou/uL (130-400); RBC Distribution Width 19.3 % (11.5-14.5); Red Blood Cell (RBC) Count 4.39 mill/uL (4.20-5.40); White Blood Cell (WBC) Count 8.3 thou/uL (4.8-10.8)
[2019-01-05 09:25] LABS: Anion Gap 14 mmol/L (10-20); BUN (Urea Nitrogen) 11 mg/dL (9.8-20.1); Calc. Creatinine Clearance 131 mL/min (70-130); Carbon Dioxide 29 mmol/L (23-31); Chloride 97 mmol/L (98-107); Estimated GFR-MDRD Greater than 90; Glucose 126 mg/dL (80-115); Potassium 4.3 mmol/L (3.5-5.1); Sodium 136 mmol/L (136-145)
[2019-01-05 09:30] LABS: Band 1 % (5-11); Hypochromia SLIGHT = 6-15 cells (100X) (0-5/hpf); Lymphocytes 11 % (21-51); MDiff Complete? YES; Microcytosis SLIGHT = 6-15 cells (100X) (0-5/hpf); Monocytes 6 % (0-10); Neutrophil 82 % (42-75); Nucleated RBC 1 % (0); Ovalocytes SLIGHT = 2-5 cells (100X) (0-1/hpf); Platelet Morphology Comment Appears Adequate; Polychromasia MODERATE = 3-4 cells (100X) (0-2/hpf); Tear Drops SLIGHT = 2-5 cells (100X) (0-1/hpf)
--- NOTE | 2019-01-05 14:08 | OP ---
DATE OF PROCEDURE: 01/05/2019 PROCEDURES PERFORMED: 1. Esophagogastroduodenoscopy. 2. Colonoscopy. PREMEDICATION: Given by Anesthesiology Department. PREPROCEDURE DIAGNOSIS: Iron deficiency anemia. POSTPROCEDURE DIAGNOSES: 1. Large hiatal hernia. 2. Diverticulosis coli. 3. Otherwise normal upper endoscopy and colonoscopy. DESCRIPTION OF PROCEDURE: Written consents were obtained prior to procedure. After adequate sedation, the forward-viewing endoscope was advanced down the stomach under direct vision to the third portion of duodenum. The duodenum appeared normal. The pylorus was patent. The gastric lumen appears to be distorted. After full insufflation, appears the patient has a large hiatal hernia. There was no mucosal abnormality, erosions, or ulceration seen. The esophagus appeared normal. The patient was then repositioned for colonoscopy. Rectal exam performed was normal. The endoscope was advanced to the cecum with ease. The quality of the bowel prep was good. The cecum, ascending colon, hepatic flexure, transverse colon, splenic flexure, descending colon all appeared normal. Scattered diverticula were noted in the sigmoid. Retroflexion did not show any abnormality in the rectal vault. ASSESSMENT: 1. Large hiatal hernia, otherwise normal endoscopy. 2. Normal colon exam except for diverticulosis coli. RECOMMENDATIONS: 1. Iron supplementation, iron sulfate b.i.d. 2. If patient is intolerant to iron, we will need iron infusion. Job ID: [id number]
[2019-01-05] MEDS ORDERED: Lidocaine 1% PF 5 ML VIAL ONE (15:52)
[2019-01-05] MEDS ORDERED: PROPOFOL 200 MG/20 ML VIAL ONE (15:52)
[2019-01-05] MEDS ORDERED: Metoprolol Tartrate 5 MG/5 ML VIAL ONE (15:52)
== END 2019-01-05 11:30 | disposition home or self-care (01) ==
LOC: SDC 08:05
PROVIDERS: ATTEND Internal Medicine Gastroenterology
PROC: 0DJ08ZZ Inspection of Upper Intestinal Tract, Via Natural or Artificial Opening Endoscopic (ICD-10-PCS; principal; 2019-01-05)
PROC: 0DJD8ZZ Inspection of Lower Intestinal Tract, Via Natural or Artificial Opening Endoscopic (ICD-10-PCS; 2019-01-05)
DX: D50.9 Iron deficiency anemia, unspecified (principal); K44.9 Diaphragmatic hernia without obstruction or gangrene; K57.30 Diverticulosis of large intestine without perforation or abscess without bleeding; K21.9 Gastro-esophageal reflux disease without esophagitis; K59.09 Other constipation; Z79.52 Long term (current) use of systemic steroids; Z79.899 Other long term (current) drug therapy; Z88.8 Allergy status to other drugs, medicaments and biological substances
CPT/HCPCS: 36416; 80048; 85025; J2001; J2704

== ENCOUNTER 2019-05-04 12:54 | Inpatient (IN) | payer MEDICARE ==
[~2019-05-04 12:54] MED LIST: Iopamidol 370 76% 100 ML VIAL ONE
[2019-05-04 13:34] LABS: Mean Corpuscular HGB CONC 28.7 g/dL (32.0-36.0); Mean Corpuscular Volume 76.5 fL (78.0-98.0); Mean Platelet Volume 9.3 fL (7.4-10.4); Platelet Count 307 thou/uL (130-400); Red Blood Cell (RBC) Count 4.11 mill/uL (4.20-5.40)
[2019-05-04 13:50] LABS: Anisocytosis SLIGHT = 6-15 cells (100X) (0-5/hpf); Band 3 % (5-11); Eosinophils 4 % (0-10); Hypochromia SLIGHT = 6-15 cells (100X) (0-5/hpf); Lymphocytes 17 % (21-51); MDiff Complete? YES; Microcytosis SLIGHT = 6-15 cells (100X) (0-5/hpf); Monocytes 12 % (0-10); Myelocyte 1 % (0-0); Neutrophil 63 % (42-75); Ovalocytes SLIGHT = 2-5 cells (100X) (0-1/hpf); Platelet Morphology Comment Appears Adequate; Poikilocytosis SLIGHT = 6-15 cells (100X) (0-5/hpf); Polychromasia MODERATE = 3-4 cells (100X) (0-2/hpf); Schistocytes SLIGHT = 2-5 cells (100X) (0-1/hpf); Target Cells SLIGHT = 2-5 cells (100X) (0-1/hpf); Tear Drops SLIGHT = 2-5 cells (100X) (0-1/hpf); White Blood Cell (WBC) Count 7.4 thou/uL (4.8-10.8)
[2019-05-04 13:54] LABS: ALT (SGPT) 38 U/L (8-55); AST (SGOT) 24 U/L (5-34); Albumin 3.7 g/dL (3.4-4.8); Alkaline Phosphatase 81 U/L (40-150); Anion Gap 14 mmol/L (10-20); BUN (Urea Nitrogen) 8 mg/dL (9.8-20.1); Bilirubin, Total 0.4 mg/dL (0.2-1.2); CK (CPK) 40 U/L (29-168); Calc. Creatinine Clearance 0 mL/min (70-130); Calcium 9.7 mg/dL (7.8-10.44); Carbon Dioxide 28 mmol/L (23-31); Chloride 102 mmol/L (98-107); Estimated GFR-MDRD 88; Globulin 2.5 g/dL (2.4-3.5); Glucose 97 mg/dL (80-115); Potassium 3.4 mmol/L (3.5-5.1); Protein, Total 6.2 g/dL (6.0-8.3); Sodium 141 mmol/L (136-145)
--- NOTE | 2019-05-04 13:55 | RAD ---
PORTABLE CHEST 1 VIEW: Date: 05/04/19 Time: 1320 hours HISTORY: Shortness of breath. FINDINGS/IMPRESSION: A large left-sided hiatal hernia is again seen. The heart size is enlarged. No lobar consolidation, p neumothoraces, jen pulmonary edema, or large effusions are seen. POS: H
[2019-05-04 14:29] LABS: Bilirubin Negative (Negative); Blood, Urine Negative (Negative); Clarity Clear (Clear); Glucose, Urine (Dipstick) Normal (Negative); Leukocyte Negative Leu/uL (Negative); Nitrite Negative (Negative); Protein, Urine (Dipstick) 20 mg/dL (Neg-Trace); Urobilinogen Normal mg/dL (Less than 2)
[2019-05-04] MEDS ORDERED: Nitroglycerin 2% Ointment 1 INCH/1 GM Packet ONE (15:18)
[2019-05-04] MEDS ORDERED: Aspirin Chewable 81 MG TAB ONE (15:18)
--- NOTE | 2019-05-04 16:22 | HP ---
PRIMARY CARE PHYSICIAN: Dr. Velia Chu. PRIMARY MAINTENANCE TECH: Dr. Yanes. REASON FOR ADMISSION: Acute on chronic respiratory failure with hypoxia and COPD exacerbation. HISTORY OF PRESENT ILLNESS: This is a 63-year-old female, who has underlying history of COPD, who presented to emergency room with a complaint of increasing shortness of breath. The patient reports that she is using 2.5 to 3 L oxygen every day basis, but for the last 2 to 3 days she was noticing that her oxygen saturation was dropping very quickly even with little effort, and she was feeling more shortness of breath than her usual. She gets out of breath after walking few steps and she cannot lie down flat. She has to sleep in her left lateral position. The patient was feeling dizzy and lightheaded. She did not have any recent upper respiratory infection. She did not have any hemoptysis, pleuritic chest pain. She denies any lower extremity edema. She denies any nausea or vomiting. She denies any immobilization or recent travel. The patient was hypoxic with saturation 84%, and with oxygen, her saturation improved to 95% in the emergency room. Today, in the emergency room, routine blood test is unremarkable. She has microcytic anemia, slightly elevated troponin, and hypokalemia. Her BNP is normal. The patient's saturation was dropping intermittently in the emergency room and that is why we decided to keep this patient in the hospital for close monitoring. REVIEW OF SYSTEMS: CONSTITUTIONAL: Negative for weight loss or gain, ability to conduct usual activities. SKIN: Negative for rash, itching. EYES: Negative for double vision, pain. ENT/MOUTH: Negative for nose bleeding, neck stiffness, pain, tenderness. CARDIOVASCULAR: Negative for palpitations, dyspnea on exertion, orthopnea. RESPIRATORY: Negative for shortness of breath, wheezing, cough, hemoptysis, fever or night sweats. GASTROINTESTINAL: Negative for poor appetite, abdominal pain, heartburn, nausea, vomiting, constipation, or diarrhea. GENITOURINARY: Negative for urgency, frequency, dysuria, nocturia. MUSCULOSKELETAL: Negative for pain, swelling. NEUROLOGIC/PSYCHIATRIC: Negative for anxiety, depression. ALLERGY/IMMUNOLOGIC: Negative for skin rash, bleeding tendency. Please see my HPI for pertinent positives and negatives. All other review of systems reviewed and negative except as mentioned in the HPI. PAST MEDICAL HISTORY: COPD; chronic diastolic heart failure; diabetes, type 2; hypertension; dyslipidemia; history of rheumatoid arthritis; chronic microcytic anemia; and coronary artery disease. PAST SURGICAL HISTORY: Hysterectomy. PAST PSYCHIATRIC HISTORY: Reviewed and negative. SOCIAL HISTORY: The patient lives at home with family. No history of smoking. No history of alcohol abuse. FAMILY HISTORY: No significant family history of coronary artery disease, stroke, or cancer. ALLERGIES: ADALIMUMAB, CHLORPROMAZINE, METHOTREXATE, AND PLAQUENIL. MEDICATIONS: Current home medications: 1. Prednisone 20 mg daily. 2. Prinzide 20/25 one tablet daily. 3. Gabapentin 300 mg three times daily. 4. Lasix 20 mg p.o. as needed. 5. [place] 1 tablet as needed. 6. Ibuprofen as needed. 7. Albuterol nebulization as needed. 8. Iron one tablet daily. 9. Vitamin D3 one tablet daily. 10. Prilosec 20 mg daily. 11. Pepcid 10 mg daily. 12. Amitiza one capsule daily. 13. Doxepin 10 mg at bedtime. EMERGENCY ROOM COURSE: The patient was given nitroglycerin patch and aspirin in the emergency room. PHYSICAL EXAMINATION: VITAL SIGNS: Currently, blood pressure 163/97, pulse 91, respiratory rate 22, temperature 98.3, and saturation 84% on room air. Weight 107.9 kg. GENERAL: The patient is currently alert, awake, chronically ill, no obvious acute distress. HEENT: Head, normocephalic and atraumatic. Eyes, pupils round, reactive to light. Extraocular muscle intact. ENT, oropharynx within normal limits. Pale mucous membranes. No oral lesion. No pharyngeal erythema. No exudate. NECK: Supple. No JVD. No thyromegaly. No carotid bruit. LUNGS: Few scattered rales, which are noted at bases, but the patient has reduced air entry. No accessory muscles of respiration in use. CARDIAC: S1 and S2 regular. No murmur elicited. No gallop. No rub. ABDOMEN: Soft. Bowel sounds present. Nontender. Nondistended. No organomegaly. No mass. No suprapubic tenderness. BACK: Unremarkable. No CVA tenderness. EXTREMITIES: Upper extremities, passive movement of all joints are normal. Normal lower extremity. Trace edema noted. Good distal pulsation. SKIN: No skin rash. HEMATOLOGIC: No lymphadenopathy. PSYCHIATRIC: Normal affect. DIAGNOSTIC STUDIES: Significant labs; EKG showing LVH. A chest x-ray showing cardiomegaly and large hiatal hernia. No acute process noted. CBC; WBC 7.4, hemoglobin 9.0, platelet 307, and MCV 76.5. BMP; sodium 141, potassium 3.4, chloride 102, carbon dioxide 28, BUN 8, creatinine 0.80, glucose 97, and calcium 9.7. LFT; AST 24, ALT 38, alkaline phosphatase 81, albumin 3.7. BNP 57.8. CK-MB 2.0 and troponin 0.035. Urinalysis normal. ASSESSMENT: 1. Acute on chronic respiratory failure with hypoxia. 2. Chronic obstructive pulmonary disease exacerbation. 3. Demand ischemia of myocardium. 4. Hypokalemia. 5. Chronic microcytic anemia. 6. Diabetes, type 2. 7. Hypertension with left ventricular hypertrophy. 8. Physical deconditioning. 9. Anxiety and depression. 10. Gastroesophageal reflux disease with hiatal hernia. 11. Chronic diastolic heart failure from hypertensive heart disease. PLAN: 1. Admission to telemetry floor. Serial cardiac enzyme to rule out acute coronary syndrome. CT angiography to rule out pulmonary embolism. DuoNeb q.4 hourly and as needed. Dulera 2 puff inhalation b.i.d., Solu-Medrol 40 mg IV q.8 hourly, and Mucinex 600 mg twice daily. Pulmonary consultation. Once we verify her home medication, then we will resume selected blood pressure medication. We will use clonidine and hydralazine on a p.r.n. basis. Diabetic diet will be given and insulin as per sliding scale. We will check ferritin level, and we will continue with iron supplementation. If ferritin level is low, then we will provide Venofer IV and Rocephin empirically. 2. Deep venous thrombosis prophylaxis, Lovenox 40 mg subcu daily. 3. Gastrointestinal prophylaxis, Protonix 40 mg p.o. daily. CODE STATUS: The patient is a full code. DISPOSITION PLAN: Based on clinical course, we are expecting the patient's stay in hospital more than 2 midnights. Plan of care discussed with the patient in detail. Job ID: [id number]
[2019-05-04 16:49] LABS: Troponin I 0.053 ng/mL (< 0.028)
[2019-05-04 19:55] LABS: Troponin I 0.017 ng/mL (< 0.028)
[2019-05-04 20:09] VITALS: BMI 45.3
[2019-05-04] MEDS ORDERED: Cepastat Lozenges 1 LOZ PO PRN (20:18)
[2019-05-04] MEDS ORDERED: Loperamide HCl 2 MG CAP PO PRN (20:18)
[2019-05-04] MEDS ORDERED: Dextrose 50% Abboject 50 ML SYRINGE SLOW IVP PRN (20:18)
[2019-05-04] MEDS ORDERED: Artificial Tear Sol 15 ML BOT EA EYE PRN (20:18)
[2019-05-04] MEDS ORDERED: Ondansetron PF 4 MG/2 ML Vial IVP PRN (20:18)
[2019-05-04] MEDS ORDERED: Dextrose 5% in Water 1,000 ML IV PRN (20:18)
[2019-05-04] MEDS ORDERED: Sodium Chloride 0.65% Nasal 44 ML BOT EA NARE PRN (20:18)
[2019-05-04] MEDS ORDERED: Loratadine 10 MG TAB PO PRN (20:18)
[2019-05-04] MEDS ORDERED: Bisacodyl 10 MG SUPP PR PRN (20:18)
[2019-05-04] MEDS ORDERED: hydrALAZINE 20 MG/ML VIAL SLOW IVP PRN (20:18)
[2019-05-04] MEDS ORDERED: cloNIDine 0.1 MG TAB PO PRN (20:18)
[2019-05-04] MEDS ORDERED: Calcium Carbonate 500 MG ChewTAB PO PRN (20:18)
[2019-05-04] MEDS ORDERED: Senokot S 8.6-50 MG TAB PO PRN (20:18)
[2019-05-04] MEDS ORDERED: Diabetic Tussin 200 MG/10 ML UDCUP PO PRN (20:18)
[2019-05-04] MEDS ORDERED: Ondansetron ODT 4 MG TAB PO PRN (20:18)
[2019-05-04] MEDS ORDERED: Potassium Chloride 20 MEQ TAB PO SCH (20:45)
--- NOTE | 2019-05-04 21:33 | CT ---
CT ANGIOGRAM THORAX WITH IV CONTRAST AND 3D RECONSTRUCTIONS 05/04/19 HISTORY: Hypoxia, shortness of breath. COMPARISON: 03/24/18. FINDINGS: No filling defects are seen in the pulmonary arteries to suggest pulmonary embolus. The thoracic aorta is normal in caliber without evidence of an aortic dissection. The heart remains enlarged. Again noted is the very large hiatal hernia which contains the stomach. Volume loss is again present at the left lung base. There is parenchymal density present at the left lung base likely related to a telectasis with multiple calcified granulomata again seen at the left lung base. Calcified subcarinal lymph node is again noted. The left lung remains clear. Several remote right sided rib fractures are again noted. There is prominent bilateral glenohumeral o steoarthropathy with small calcific densities again seen in the glenohumeral joints bilaterally. There has been no significant interval change when compared to the prior exam or noncontrast CT thora x on 09/14/18. IMPRESSION: 1. No CT evidence of pulmonary embolus. 2. Cardiomegaly. 3. Large hiatal hernia. 4. Volume loss left lung base. 5. Remote right sided rib fractures. 1. POS: [facility]
[2019-05-04] MEDS: cefTRIAXone\\ROCEPHIN 1 GM in Sodium Chloride 0.9% 100 ML IVPB SCH (21:37)
[2019-05-04] MEDS: Montelukast Sodium 10 mg Tablet PO SCH (21:38)
[2019-05-04] MEDS: methylPREDNISolone Sod Succ 40 MG VIAL IVP SCH (21:38)
[2019-05-04] MEDS: guaiFENesin ER 600 MG TAB PO SCH (21:38)
[2019-05-04] MEDS ORDERED: Nitroglycerin 2% Ointment 1 INCH/1 GM Packet TOP SCH (22:00)
[2019-05-05] MEDS ORDERED: Gabapentin 300 MG CAP PO SCH (01:15)
[2019-05-05] MEDS ORDERED: Doxepin HCl 10 MG CAP PO SCH (01:15)
[2019-05-05] MEDS: HYDROcodone/Acetaminophen 7.5/325 mg Tablet PO PRN ×3 (01:43→23:21)
[2019-05-05] MEDS: Ibuprofen 800 MG TAB PO PRN ×3 (01:43→23:20)
[2019-05-05] MEDS: methylPREDNISolone Sod Succ 40 MG VIAL IVP SCH ×3 (05:23→23:17)
[2019-05-05 05:57] LABS: Anion Gap 12 mmol/L (10-20); BUN (Urea Nitrogen) 8 mg/dL (9.8-20.1); Calc. Creatinine Clearance 115 mL/min (70-130); Calcium 9.6 mg/dL (7.8-10.44); Carbon Dioxide 30 mmol/L (23-31); Chloride 100 mmol/L (98-107); Estimated GFR-MDRD 80; Glucose 357 mg/dL (80-115); Potassium 4.4 mmol/L (3.5-5.1); Sodium 138 mmol/L (136-145)
[2019-05-05 06:03] LABS: #Basophils 0.2 thou/uL (0.0-0.2); #Lymphocytes 0.2 thou/uL (1.20-3.40); #Monocytes 0.2 thou/uL (0.11-0.59); #Neutrophils 8.9 thou/uL (1.40-6.50); %Basophils 1.9 % (0.0-1.0); %Eosinophils 0.3 % (0.0-10.0); %Lymphocytes 2.4 % (21.0-51.0); %Monocytes 1.6 % (0.0-10.0); %Neutrophils 93.9 % (42.0-75.0); Mean Corpuscular Hemoglobin 23.3 pg (27.0-31.0); Mean Corpuscular Volume 77.6 fL (78.0-98.0); Mean Platelet Volume 9.5 fL (7.4-10.4); Platelet Count 312 thou/uL (130-400); RBC Distribution Width 18.9 % (11.5-14.5); Red Blood Cell (RBC) Count 3.88 mill/uL (4.20-5.40); White Blood Cell (WBC) Count 9.5 thou/uL (4.8-10.8)
[2019-05-05] MEDS: Mometasone/Formoterol 120 PUFF INHALER INH SCH ×2 (07:04→18:41)
[2019-05-05] MEDS ORDERED: HumuLIN 70/30 (300 UNITS/3 ML VIAL) SC SCH (07:15)
[2019-05-05] MEDS ORDERED: methylPREDNISolone Sod Succ 40 MG VIAL IVP SCH (08:00)
[2019-05-05] MEDS ORDERED: Non-Formulary Item 1 EACH (Cholecalciferol (Vitamin D3) [Vitamin D3] 5,000 UNIT) PO SCH (09:00)
[2019-05-05] MEDS: Ferrous Sulfate 325 MG TAB PO SCH (09:08)
[2019-05-05] MEDS: Gabapentin 300 MG CAP PO SCH ×3 (09:12→21:32)
[2019-05-05] MEDS: Lubiprostone 24 MCG CAP PO SCH ×2 (09:12→21:33)
[2019-05-05] MEDS: guaiFENesin ER 600 MG TAB PO SCH ×2 (09:12→21:33)
[2019-05-05] MEDS: Lisinopril/Hydrochlorothiazide 20/25 mg Tablet PO SCH (09:12)
[2019-05-05] MEDS: Furosemide 20 MG TAB PO SCH (09:13)
[2019-05-05] MEDS: Enoxaparin Sodium 40 MG/0.4 ML SYRINGE SC SCH (09:13)
--- NOTE | 2019-05-05 09:48 | PDOC.HOSPP ---
- Subjective Subjective: Patient seen and examined. No new complaints. No overnight events - Objective Vital Signs & Weight: Vital Signs (12 hours) Temp Pulse Resp BP BP Pulse Ox 05/05/19 09:12 107 H 174/78 H 05/05/19 07:09 98 05/05/19 07:08 92 20 98 05/05/19 07:04 92 22 H 98 05/05/19 03:35 97.7 F 97 20 130/73 94 L 05/05/19 02:26 94 12 05/04/19 23:32 97.5 F L 91 20 138/91 H 93 L Weight Weight 239 lb 14.4 oz I&O: 05/04/19 05/05/19 05/06/19 06:59 06:59 06:59 Intake Total 580 Balance 580 Result Diagrams: 05/05/19 05:02 05/05/19 05:02 Additional Labs: Accuchecks 05/05/19 05/04/19 05:24 20:44 POC Glucose 349 H 95 Radiology Reviewed by me: Yes (CT A negative) EKG Reviewed by me: Yes ROS - Review of Systems All systems: All other ROS were reviewed and found negative. Constitutional: reports: weakness, malaise. denies: fever, chills, sweats, other ENT: denies: ear pain, ear discharge, nose pain, nose discharge, nose congestion , mouth pain, mouth swelling, throat pain, throat swelling, other Respiratory: reports: shortness of breath, SOB with excertion. denies: cough, dry, hemoptysis, pleuritic pain, sputum, wheezing, other Cardiovascular: denies: chest pain, palpitations, orthopnea, paroxysmal noc. dyspnea, edema, light headedness, other Gastrointestinal: denies: nausea, vomitting, abdominal pain, diarrhea, constipation, melena, hematochezia, other Genitourinary: denies: dysuria, frequency, incontinence, hematuria, retention, other Musculoskeletal: denies: neck pain, shoulder pain, arm pain, back pain, hand pain, leg pain, foot pain, other - Medication Medications: Active Medications Generic Name Dose Route Start Last Admin Trade Name Freq PRN Reason Stop Dose Admin Hydrocodone Bitart/Acetaminophen 1 tab 05/05/19 01:01 05/05/19 01:43 [place] 7.5/325 PO 1 tab Q6HR PRN Administration Severe Pain (7-10) Albuterol/Ipratropium 3 ml 05/04/19 22:30 05/05/19 07:08 Duoneb NEB 3 ml [id number] DARYL Administration Cholecalciferol 5,000 units 05/05/19 09:00 05/05/19 09:08 Vitamin D3 PO 5,000 units DAILY DARYL Administration Diltiazem HCl 240 mg 05/05/19 09:00 05/05/19 09:12 Cardizem Cd PO 240 mg DAILY DARYL Administration Enoxaparin Sodium 40 mg 05/05/19 09:00 05/05/19 09:13 Lovenox SC 40 mg 0900 DARYL Administration Ferrous Sulfate 325 mg 05/05/19 08:00 05/05/19 09:08 Feosol PO 325 mg QAM-WM DARYL Administration Furosemide 20 mg 05/05/19 09:00 05/05/19 09:13 Lasix PO 20 mg QAM DARYL Administration Gabapentin 300 mg 05/05/19 09:00 05/05/19 09:12 Neurontin PO 300 mg TID DARYL Administration Guaifenesin 600 mg 05/04/19 21:00 05/05/19 09:12 Mucinex PO 600 mg Q12HR DARYL Administration Lisinopril/HCTZ 1 tab 05/05/19 09:00 05/05/19 09:12 Prinizide 20-25 PO 1 tab DAILY DARYL Administration Ceftriaxone Sodium 1 gm/ 100 mls @ 200 mls/hr 05/04/19 21:00 05/04/19 21:37 Sodium Chloride IVPB 100 mls Q24HR DARYL Administration Ibuprofen 800 mg 05/05/19 01:01 05/05/19 01:43 Motrin PO 800 mg TID PRN Administration Mild Pain (1-3) Lubiprostone 24 mcg 05/05/19 09:00 05/05/19 09:12 Amitiza PO 24 mcg BID DARYL Administration Mometasone Furoate/Formoterol Fumar 2 puff 05/05/19 06:30 05/05/19 07:04 Dulera 200 Mcg/5 Mcg Inhaler INH 2 puff BID-RT DARYL Administration Montelukast Sodium 10 mg 05/04/19 21:00 05/04/19 21:38 Singulair PO Not Given QPM DARYL Pantoprazole Sodium 40 mg 05/05/19 09:00 05/05/19 09:13 Protonix PO 40 mg DAILY DARYL Administration Sodium Chloride 10 ml 05/05/19 09:00 05/05/19 09:16 Flush - Normal Saline IVF 10 ml Q12HR DARYL Administration - Exam NAD, awake alert Eye: PERRL, anicteric sclera ENT: normocephalic atraumatic, no oropharyngeal lesions Neck: supple, symmetric, no JVD Heart: RRR, no murmur, no gallops, no rubs Respiratory: CTAB, no wheezes, no rales, no ronchi Gastrointestinal: soft, non-tender, non-distended, normal bowel sounds Extremities: no cyanosis, no clubbing, no edema Skin: normal turgor, no lesions Neurological: CN's grossly intact, normal sensation to touch Musculoskeletal: normal tone, normal strength Psychiatric: normal affect, normal behavior Hosp A/P (1) Acute on chronic respiratory failure with hypoxia Code(s): J96.21 - ACUTE AND CHRONIC RESPIRATORY FAILURE WITH HYPOXIA Status: Acute (2) COPD exacerbation Code(s): J44.1 - CHRONIC OBSTRUCTIVE PULMONARY DISEASE W (ACUTE) EXACERBATION Status: Acute (3) Hypokalemia Code(s): E87.6 - HYPOKALEMIA Status: Acute (4) Type 2 myocardial infarction Code(s): I21.A1 - MYOCARDIAL INFARCTION TYPE 2 Status: Acute (5) Diabetes type 2, controlled Code(s): E11.9 - TYPE 2 DIABETES MELLITUS WITHOUT COMPLICATIONS Status: Chronic (6) GERD (gastroesophageal reflux disease) Code(s): K21.9 - GASTRO-ESOPHAGEAL REFLUX DISEASE WITHOUT ESOPHAGITIS Status: Chronic (7) Hiatal hernia Code(s): K44.9 - DIAPHRAGMATIC HERNIA WITHOUT OBSTRUCTION OR GANGRENE Status: Chronic (8) Hypertension Code(s): I10 - ESSENTIAL (PRIMARY) HYPERTENSION Status: Chronic (9) Microcytic anemia Code(s): D50.9 - IRON DEFICIENCY ANEMIA, UNSPECIFIED Status: Chronic (10) Morbid obesity with BMI of 45.0-49.9, adult Code(s): E66.01 - MORBID (SEVERE) OBESITY DUE TO EXCESS CALORIES; Z68.42 - BODY MASS INDEX (BMI) 45.0-49.9, ADULT Status: Chronic (11) Physical deconditioning Code(s): R53.81 - OTHER MALAISE Status: Chronic (12) Rheumatoid arthritis Code(s): M06.9 - RHEUMATOID ARTHRITIS, UNSPECIFIED Status: Chronic - Plan old records reviewed/req, plan discussed w/ family, PT/OT, respiratory therapy medication reviewed as below symptomatic treatment continue current treatment reduce solumedrol continue rocephin dc tele transfer to medical pulmonary following
--- NOTE | 2019-05-05 10:25 | CON ---
DATE OF CONSULTATION: 05/05/2019 HISTORY OF PRESENT ILLNESS: A 63-year-old female, who sees Dr. Yanes in our office, was admitted to the hospital last night with shortness of breath, weakness, cough, but no chest pain, chills, or sweats. Apparently, her oxygen saturations were low in the doctor's office yesterday she tells me. She denies any chest pain, chills, or sweats. Her sats were apparently in the 70s. She has a CPAP machine. It is unclear whether she is using it at home. Mostly, she can barely walk even 50 feet without getting markedly short of breath. PAST MEDICAL HISTORY: 1. Sleep apnea. 2. COPD. 3. Respiratory failure. 4. Rheumatoid arthritis. 5. Chronic asthma. 6. Coronary artery disease. 7. Chronic anemia. PAST SURGICAL HISTORY: Previous surgery, hysterectomy. HOME MEDICATIONS: Include, 1. Prednisone 20. 2. Lisinopril. 3. DuoNeb. 4. Ibuprofen. 5. Gabapentin 300. 6. Lasix 20. 7. [place] 10. 8. Cardizem CD. 9. Amitiza 24. ALLERGIES: MULTIPLE INCLUDING HUMIRA, METHOTREXATE, AND PLAQUENIL. REVIEW OF SYSTEMS: Otherwise, 10-point negative. PHYSICAL EXAMINATION: VITAL SIGNS: Sats are 92% on 2 L, blood pressure 174/80, pulse rate of 80. CHEST: Decreased breath sounds. No wheezing. CARDIAC: Normal S1 and S2. No gallops. ABDOMEN: No masses. LABORATORY DATA: Creatinine is normal. Lytes are normal. IMPRESSION: 1. Respiratory failure. CT chest and chest x-ray show no pulmonary emboli, just cardiomegaly. Her last echocardiogram done shows diastolic dysfunction. 2. Rheumatoid arthritis. 3. Morbid obesity. 4. Sleep apnea. 5. Cushingoid. I agree with present neb treatments, steroids, supportive care, cardiac input. She needs to get a home CPAP machine. Otherwise, she is to place on nocturnal BiPAP. We will notify Dr. Yanes. This is a consultation note, 70 minutes, 50% direct patient care. Job ID: [id number]
[2019-05-05] MEDS: HumaLOG 300 UNITS/3 ML VIAL SC PRN ×3 (11:35→21:44)
[2019-05-05] MEDS: cefTRIAXone\\ROCEPHIN 1 GM in Sodium Chloride 0.9% 100 ML IVPB SCH (21:32)
[2019-05-05] MEDS: Montelukast Sodium 10 mg Tablet PO SCH (21:33)
[2019-05-05] MEDS: HumuLIN 70/30 (300 UNITS/3 ML VIAL) SC SCH (21:39)
[2019-05-05] MEDS: Doxepin HCl 10 MG CAP PO SCH (21:48)
[2019-05-06] MEDS: methylPREDNISolone Sod Succ 40 MG VIAL IVP SCH ×3 (06:07→21:15)
[2019-05-06] MEDS: Mometasone/Formoterol 120 PUFF INHALER INH SCH ×2 (06:58→19:11)
[2019-05-06] MEDS: Lubiprostone 24 MCG CAP PO SCH ×2 (08:10→21:14)
[2019-05-06] MEDS: Gabapentin 300 MG CAP PO SCH ×3 (08:21→22:30)
[2019-05-06] MEDS: guaiFENesin ER 600 MG TAB PO SCH ×2 (08:24→21:14)
[2019-05-06] MEDS: HumaLOG 300 UNITS/3 ML VIAL SC PRN ×3 (08:24→19:03)
[2019-05-06] MEDS: Furosemide 20 MG TAB PO SCH (08:24)
[2019-05-06] MEDS: Lisinopril/Hydrochlorothiazide 20/25 mg Tablet PO SCH (08:24)
[2019-05-06] MEDS: Ferrous Sulfate 325 MG TAB PO SCH (08:24)
[2019-05-06] MEDS: Enoxaparin Sodium 40 MG/0.4 ML SYRINGE SC SCH (08:24)
--- NOTE | 2019-05-06 10:12 | PDOC.HOSPP ---
- Subjective Subjective: last night, pt did not have good night, she had episode of vomiting, she did use cpap machine last night, this morning she does not have any new problems, family bedside - Objective Vital Signs & Weight: Vital Signs (12 hours) Temp Pulse Resp BP Pulse Ox 05/06/19 10:07 107 H 24 H 97 05/06/19 07:39 96.2 F L 104 H 20 134/84 94 L 05/06/19 07:38 84 L 05/06/19 07:01 83 24 H 98 05/06/19 07:00 97 05/06/19 06:58 83 16 98 05/06/19 04:00 97.4 F L 88 20 109/67 91 L 05/06/19 01:59 96 22 H 05/06/19 01:57 95 24 H 100 05/06/19 00:00 97.8 F 90 20 119/73 96 Weight Weight 240 lb I&O: 05/05/19 05/06/19 05/07/19 06:59 06:59 06:59 Intake Total 580 610 Output Total 1400 Balance 580 -790 Result Diagrams: 05/05/19 05:02 05/05/19 05:02 Additional Labs: Accuchecks 05/06/19 05/05/19 05/05/19 05:45 20:36 16:46 POC Glucose 242 H 238 H 266 H 05/05/19 11:00 POC Glucose 313 H EKG Reviewed by me: Yes ROS - Review of Systems All systems: All other ROS were reviewed and found negative. Constitutional: denies: fever, chills, sweats, weakness, malaise, other Eyes: denies: pain, vision change, conjunctivae inflammation, eyelid inflammation, redness, other ENT: denies: ear pain, ear discharge, nose pain, nose discharge, nose congestion , mouth pain, mouth swelling, throat pain, throat swelling, other Respiratory: reports: shortness of breath, SOB with excertion. denies: cough, dry, hemoptysis, pleuritic pain, sputum, wheezing, other Cardiovascular: denies: chest pain, palpitations, orthopnea, paroxysmal noc. dyspnea, edema, light headedness, other Gastrointestinal: denies: nausea, vomitting, abdominal pain, diarrhea, constipation, melena, hematochezia, other Genitourinary: denies: dysuria, frequency, incontinence, hematuria, retention, other Musculoskeletal: denies: neck pain, shoulder pain, arm pain, back pain, hand pain, leg pain, foot pain, other Skin: denies: rash, lesions, wilian, bruising, other - Medication Medications: Active Medications Generic Name Dose Route Start Last Admin Trade Name Freq PRN Reason Stop Dose Admin Hydrocodone Bitart/Acetaminophen 1 tab 05/05/19 01:01 05/05/19 23:21 Wright 7.5/325 PO 1 tab Q6HR PRN Administration Severe Pain (7-10) Albuterol/Ipratropium 3 ml 05/04/19 22:30 05/06/19 10:07 Duoneb NEB 3 ml [id number] DARYL Administration Cholecalciferol 5,000 units 05/05/19 09:00 05/06/19 08:10 Vitamin D3 PO 5,000 units DAILY DARYL Administration Diltiazem HCl 240 mg 05/05/19 09:00 05/06/19 08:11 Cardizem Cd PO 240 mg DAILY DARYL Administration Doxepin HCl 10 mg 05/05/19 21:00 05/05/19 21:48 Sinequan PO 10 mg HS DARYL Administration Enoxaparin Sodium 40 mg 05/05/19 09:00 05/06/19 08:24 Lovenox SC 40 mg 0900 DARYL Administration Ferrous Sulfate 325 mg 05/05/19 08:00 05/06/19 08:24 Feosol PO 325 mg QAM-WM DARYL Administration Furosemide 20 mg 05/05/19 09:00 05/06/19 08:24 Lasix PO 20 mg QAM DARYL Administration Gabapentin 300 mg 05/05/19 09:00 05/06/19 08:21 Neurontin PO 300 mg TID DARYL Administration Guaifenesin 600 mg 05/04/19 21:00 05/06/19 08:24 Mucinex PO 600 mg Q12HR DARYL Administration Lisinopril/HCTZ 1 tab 05/05/19 09:00 05/06/19 08:24 Prinizide 20-25 PO 1 tab DAILY DARYL Administration Ceftriaxone Sodium 1 gm/ 100 mls @ 200 mls/hr 05/04/19 21:00 05/05/19 21:32 Sodium Chloride IVPB 100 mls Q24HR DARYL Administration Ibuprofen 800 mg 05/05/19 01:01 05/05/19 23:20 Motrin PO 800 mg TID PRN Administration Mild Pain (1-3) Insulin Human Isoph/Insulin Regular 25 units 05/05/19 21:00 05/05/19 21:39 Humulin 70/30 SC 25 unit HS DARYL Administration Insulin Human Lispro 0 units 05/04/19 20:18 05/06/19 08:24 Humalog SC 4 unit .MODERATE SLIDING SC PRN Administration Moderate Correctional Scale Insulin Human Lispro 0 units 05/04/19 20:18 05/05/19 21:44 Humalog SC 2 unit .BEDTIME SLIDING SC PRN Administration Bedtime Correctional Scale Lubiprostone 24 mcg 05/05/19 09:00 05/06/19 08:10 Amitiza PO 24 mcg BID DARYL Administration Methylprednisolone Sodium Succinate 20 mg 05/05/19 14:00 05/06/19 06:07 Solu-Medrol IVP 20 mg 0600,1400,2200 DARYL Administration Mometasone Furoate/Formoterol Fumar 2 puff 05/05/19 06:30 05/06/19 06:58 Dulera 200 Mcg/5 Mcg Inhaler INH 2 puff BID-RT DARYL Administration Montelukast Sodium 10 mg 05/04/19 21:00 05/05/19 21:33 Singulair PO 10 mg QPM DARYL Administration Pantoprazole Sodium 40 mg 05/05/19 09:00 05/06/19 08:10 Protonix PO 40 mg DAILY DARYL Administration Sodium Chloride 10 ml 05/05/19 09:00 05/05/19 21:48 Flush - Normal Saline IVF 10 ml Q12HR DARYL Administration Sodium Chloride 10 ml 05/05/19 07:16 05/06/19 06:07 Flush - Normal Saline IVF 10 ml PRN PRN Administration Saline Flush - Exam NAD, awake alert Eye: PERRL, anicteric sclera ENT: normocephalic atraumatic, no oropharyngeal lesions Neck: supple, symmetric Heart: RRR, no murmur, no gallops Respiratory: wheezes Gastrointestinal: soft, non-tender, non-distended (obesity+) Extremities: no cyanosis, no clubbing, no edema Skin: normal turgor, no lesions, no rashes Neurological: CN's grossly intact, normal sensation to touch, no focal deficits Musculoskeletal: normal tone, normal strength Psychiatric: normal affect, normal behavior Hosp A/P (1) Acute on chronic respiratory failure with hypoxia Code(s): J96.21 - ACUTE AND CHRONIC RESPIRATORY FAILURE WITH HYPOXIA Status: Acute (2) COPD exacerbation Code(s): J44.1 - CHRONIC OBSTRUCTIVE PULMONARY DISEASE W (ACUTE) EXACERBATION Status: Acute (3) Hypokalemia Code(s): E87.6 - HYPOKALEMIA Status: Acute (4) Type 2 myocardial infarction Code(s): I21.A1 - MYOCARDIAL INFARCTION TYPE 2 Status: Acute (5) Diabetes type 2, controlled Code(s): E11.9 - TYPE 2 DIABETES MELLITUS WITHOUT COMPLICATIONS Status: Chronic (6) GERD (gastroesophageal reflux disease) Code(s): K21.9 - GASTRO-ESOPHAGEAL REFLUX DISEASE WITHOUT ESOPHAGITIS Status: Chronic (7) Hiatal hernia Code(s): K44.9 - DIAPHRAGMATIC HERNIA WITHOUT OBSTRUCTION OR GANGRENE Status: Chronic (8) Hypertension Code(s): I10 - ESSENTIAL (PRIMARY) HYPERTENSION Status: Chronic (9) Microcytic anemia Code(s): D50.9 - IRON DEFICIENCY ANEMIA, UNSPECIFIED Status: Chronic (10) Morbid obesity with BMI of 45.0-49.9, adult Code(s): E66.01 - MORBID (SEVERE) OBESITY DUE TO EXCESS CALORIES; Z68.42 - BODY MASS INDEX (BMI) 45.0-49.9, ADULT Status: Chronic (11) Physical deconditioning Code(s): R53.81 - OTHER MALAISE Status: Chronic (12) Rheumatoid arthritis Code(s): M06.9 - RHEUMATOID ARTHRITIS, UNSPECIFIED Status: Chronic - Plan old records reviewed/req, plan discussed w/ family, continue antibiotics, respiratory therapy medication reviewed as below symptomatic treatment pulmonary following currently on rocephin, low dose solumedrol will get echo done today
--- NOTE | 2019-05-06 13:47 | PQF ---
DORYS ROGERS, SHAYNE REINOSO MD [id number] CLINICAL DOCUMENTATION IMPROVEMENT CLARIFICATION FORM: ICD-10 Updated PLEASE DO AN ADDENDUM TO THE PROGRESS NOTE WITH ANY DOCUMENTATION UPDATES OR ADDITIONS AND CARRY THROUGH TO DC SUMMARY. THANK YOU. DATE: 05/06/2019 ATTN:DR. Josefina PENA Please exercise your independent, professional judgment in responding to the clarification form. Clinical indicators are provided on the bottom of this form for your review. Please check appropriate box(s): [ x ] NSTEMI (LA type I) [ ] NSTEMI due to Demand Ischemia (AMI Type II) [ ] Demand Ischemia to myocardium, without LA [ ] Other diagnosis [ ] Unable to determine In addition, please specify: Present on Admission (POA): [ x ] Yes [ ] No [ ] Unable to determine CLINICAL INDICATORS - SIGNS / SYMPTOMS / LABS 05/04 TROPONIN I 0.335, 0.053, 0.017 05/04 ED PHYSICIAN DX: HYPOXIA, CHF EXACERBATION, ELEVATED TROPONIN 05/04 H & P (BECKY) ASSESSMENT: 3) DEMAND ISCHEMIA OF MYOCARDIUM, PLAN ADMISSION TO TELEMETRY FLOOR. SERIAL CARDIAC ENZYME TO RULE OUT ACUTE CORONARY SYNDROME. RISK: HX CAD, HTN, (BECKY) DX MORBID OBESITY (JC) TREATMENTS: ASPIRIN / NITRO BID TRANSDERMAL IN ED CARDIAC SERIAL ENZYMES TELEMETRY MONITORING SUPPLEMENTAL O2 THANK YOU! CANDY (This form is maintained as a part of the permanent medical record) Viewer 2015 [employer] All Rights Reserved [email or web address] [phone] [place]
[2019-05-06] MEDS: HYDROcodone/Acetaminophen 7.5/325 mg Tablet PO PRN ×2 (15:26→22:30)
[2019-05-06] MEDS: Ibuprofen 800 MG TAB PO PRN ×2 (15:26→22:30)
--- NOTE | 2019-05-06 16:29 | PRG ---
DATE OF SERVICE: 05/06/2019 SUBJECTIVE: Fabiana Anand says she is feeling better than she felt on presentation (much better). OBJECTIVE: VITAL SIGNS: She is afebrile. Heart rate is 105 earlier, respiratory rate is 24, oximetry is 93, and blood pressure is 137/66. LUNGS: Remarkable for faint wheezes. HEART: Regular rhythm. ABDOMEN: Soft, nontender. EXTREMITIES: Without edema. IMPRESSION: 1. Sleep apnea. 2. Obesity with deconditioning. 3. Chronic obstructive pulmonary disease and asthma with ongoing bronchospasm that she says has improved. 4. History of hypertension. 5. History of rheumatoid arthritis on steroids. 6. Hyperdynamic left ventricle with diastolic dysfunction. It is unclear how much of this presentation is related to a component of diastolic dysfunction and cardiac asthma. 7. Blood pressures have been stable. We will continue to follow with the other physicians caring for. Job ID: [id number]
[2019-05-06] MEDS: cefTRIAXone\\ROCEPHIN 1 GM in Sodium Chloride 0.9% 100 ML IVPB SCH (21:14)
[2019-05-06] MEDS: HumuLIN 70/30 (300 UNITS/3 ML VIAL) SC SCH (21:14)
[2019-05-06] MEDS: Montelukast Sodium 10 mg Tablet PO SCH (21:14)
[2019-05-06] MEDS: Doxepin HCl 10 MG CAP PO SCH (22:30)
[2019-05-07] MEDS: methylPREDNISolone Sod Succ 40 MG VIAL IVP SCH ×3 (06:01→22:12)
[2019-05-07] MEDS: Mometasone/Formoterol 120 PUFF INHALER INH SCH ×2 (07:11→19:28)
[2019-05-07] MEDS: Enoxaparin Sodium 40 MG/0.4 ML SYRINGE SC SCH (08:41)
[2019-05-07] MEDS: Furosemide 20 MG TAB PO SCH (08:41)
[2019-05-07] MEDS: Ferrous Sulfate 325 MG TAB PO SCH (08:41)
[2019-05-07] MEDS: Lisinopril/Hydrochlorothiazide 20/25 mg Tablet PO SCH (08:42)
[2019-05-07] MEDS: Gabapentin 300 MG CAP PO SCH ×2 (08:42→15:05)
[2019-05-07] MEDS: HumaLOG 300 UNITS/3 ML VIAL SC PRN ×4 (08:42→21:55)
[2019-05-07] MEDS: guaiFENesin ER 600 MG TAB PO SCH ×2 (08:42→22:11)
[2019-05-07] MEDS: Lubiprostone 24 MCG CAP PO SCH ×2 (08:42→22:08)
[2019-05-07] MEDS: Ibuprofen 800 MG TAB PO PRN ×2 (08:47→15:05)
[2019-05-07] MEDS: HYDROcodone/Acetaminophen 7.5/325 mg Tablet PO PRN ×2 (08:47→15:04)
--- NOTE | 2019-05-07 11:59 | PDOC.HOSPP ---
- Subjective Subjective: this morning pt went to bathroom and after that she was having diffuse wheezing and short of breath - Objective Vital Signs & Weight: Vital Signs (12 hours) Temp Pulse Resp BP Pulse Ox 05/07/19 11:37 97.8 F 90 18 138/74 94 L 05/07/19 10:46 90 16 94 L 05/07/19 07:52 97.8 F 86 18 139/66 92 L 05/07/19 07:14 94 L 05/07/19 07:13 81 16 94 L 05/07/19 07:11 81 16 94 L 05/07/19 04:00 97.9 F 80 18 119/89 96 05/07/19 02:20 16 05/07/19 02:15 97 05/06/19 23:59 97.4 F L 88 20 134/73 97 Weight Weight 244 lb I&O: 05/06/19 05/07/19 05/08/19 06:59 06:59 06:59 Intake Total 610 Output Total 1400 Balance -790 Result Diagrams: 05/05/19 05:02 05/05/19 05:02 Additional Labs: Accuchecks 05/07/19 05/07/19 05/06/19 11:28 05:41 20:24 POC Glucose 215 H 184 H 194 H 05/06/19 16:49 POC Glucose 201 H EKG Reviewed by me: Yes ROS - Review of Systems All systems: All other ROS were reviewed and found negative. Constitutional: reports: weakness, malaise. denies: fever, chills, sweats, other ENT: denies: ear pain, ear discharge, nose pain, nose discharge, nose congestion , mouth pain, mouth swelling, throat pain, throat swelling, other Respiratory: reports: shortness of breath, SOB with excertion, wheezing. denies : cough, dry, hemoptysis, pleuritic pain, sputum, other Cardiovascular: denies: chest pain, palpitations, orthopnea, paroxysmal noc. dyspnea, edema, light headedness, other Gastrointestinal: denies: nausea, vomitting, abdominal pain, diarrhea, constipation, melena, hematochezia, other Genitourinary: denies: dysuria, frequency, incontinence, hematuria, retention, other Musculoskeletal: denies: neck pain, shoulder pain, arm pain, back pain, hand pain, leg pain, foot pain, other Skin: denies: rash, lesions, wilian, bruising, other - Medication Medications: Active Medications Generic Name Dose Route Start Last Admin Trade Name Freq PRN Reason Stop Dose Admin Hydrocodone Bitart/Acetaminophen 1 tab 05/05/19 01:01 05/07/19 08:47 [place] 7.5/325 PO 1 tab Q6HR PRN Administration Severe Pain (7-10) Albuterol/Ipratropium 3 ml 05/04/19 22:30 05/07/19 10:46 Duoneb NEB 3 ml [id number] DARYL Administration Bisacodyl 10 mg 05/04/19 20:18 05/06/19 12:33 Dulcolax SD 10 mg DAILYPRN PRN Administration Constipation Cholecalciferol 5,000 units 05/05/19 09:00 05/07/19 08:41 Vitamin D3 PO 5,000 units DAILY DARYL Administration Diltiazem HCl 240 mg 05/05/19 09:00 05/07/19 08:41 Cardizem Cd PO 240 mg DAILY DARYL Administration Doxepin HCl 10 mg 05/05/19 21:00 05/06/19 22:30 Sinequan PO 10 mg HS DARYL Administration Enoxaparin Sodium 40 mg 05/05/19 09:00 05/07/19 08:41 Lovenox SC 40 mg 0900 DARYL Administration Ferrous Sulfate 325 mg 05/05/19 08:00 05/07/19 08:41 Feosol PO 325 mg QAM-WM DARYL Administration Furosemide 20 mg 05/05/19 09:00 05/07/19 08:41 Lasix PO 20 mg QAM DARYL Administration Gabapentin 300 mg 05/05/19 09:00 05/07/19 08:42 Neurontin PO 300 mg TID DARYL Administration Guaifenesin 600 mg 05/04/19 21:00 05/07/19 08:42 Mucinex PO 600 mg Q12HR DARYL Administration Lisinopril/HCTZ 1 tab 05/05/19 09:00 05/07/19 08:42 Prinizide 20-25 PO 1 tab DAILY DARYL Administration Ceftriaxone Sodium 1 gm/ 100 mls @ 200 mls/hr 05/04/19 21:00 05/06/19 21:14 Sodium Chloride IVPB 100 mls Q24HR DARYL Administration Ibuprofen 800 mg 05/05/19 01:01 05/07/19 08:47 Motrin PO 800 mg TID PRN Administration Mild Pain (1-3) Insulin Human Isoph/Insulin Regular 25 units 05/05/19 21:00 05/06/19 21:14 Humulin 70/30 SC 25 unit HS DARYL Administration Insulin Human Lispro 0 units 05/04/19 20:18 05/07/19 11:40 Humalog SC 4 unit .MODERATE SLIDING SC PRN Administration Moderate Correctional Scale Insulin Human Lispro 0 units 05/04/19 20:18 05/05/19 21:44 Humalog SC 2 unit .BEDTIME SLIDING SC PRN Administration Bedtime Correctional Scale Lubiprostone 24 mcg 05/05/19 09:00 05/07/19 08:42 Amitiza PO 24 mcg BID DARYL Administration Methylprednisolone Sodium Succinate 20 mg 05/05/19 14:00 05/07/19 06:01 Solu-Medrol IVP 20 mg 0600,1400,2200 DARYL Administration Mometasone Furoate/Formoterol Fumar 2 puff 05/05/19 06:30 05/07/19 07:11 Dulera 200 Mcg/5 Mcg Inhaler INH 2 puff BID-RT DARYL Administration Montelukast Sodium 10 mg 05/04/19 21:00 05/06/19 21:14 Singulair PO 10 mg QPM DARYL Administration Pantoprazole Sodium 40 mg 05/05/19 09:00 05/07/19 08:42 Protonix PO 40 mg DAILY DARYL Administration Sodium Chloride 10 ml 05/05/19 09:00 05/07/19 08:55 Flush - Normal Saline IVF 10 ml Q12HR DARYL Administration Sodium Chloride 10 ml 05/05/19 07:16 05/06/19 06:07 Flush - Normal Saline IVF 10 ml PRN PRN Administration Saline Flush - Exam ill appearing Eye: PERRL, anicteric sclera ENT: normocephalic atraumatic, no oropharyngeal lesions Neck: supple, symmetric, no JVD Heart: RRR, no murmur, no gallops Respiratory: rhonchi, wheezes Gastrointestinal: soft, non-tender, non-distended, normal bowel sounds Extremities: no cyanosis, no clubbing Skin: normal turgor, no lesions Neurological: CN's grossly intact, normal sensation to touch, no focal deficits Musculoskeletal: normal tone, normal strength Psychiatric: normal affect, normal behavior Hosp A/P (1) Acute on chronic respiratory failure with hypoxia Code(s): J96.21 - ACUTE AND CHRONIC RESPIRATORY FAILURE WITH HYPOXIA Status: Acute (2) COPD exacerbation Code(s): J44.1 - CHRONIC OBSTRUCTIVE PULMONARY DISEASE W (ACUTE) EXACERBATION Status: Acute (3) Hypokalemia Code(s): E87.6 - HYPOKALEMIA Status: Acute (4) Type 2 myocardial infarction Code(s): I21.A1 - MYOCARDIAL INFARCTION TYPE 2 Status: Acute (5) Diabetes type 2, controlled Code(s): E11.9 - TYPE 2 DIABETES MELLITUS WITHOUT COMPLICATIONS Status: Chronic (6) GERD (gastroesophageal reflux disease) Code(s): K21.9 - GASTRO-ESOPHAGEAL REFLUX DISEASE WITHOUT ESOPHAGITIS Status: Chronic (7) Hiatal hernia Code(s): K44.9 - DIAPHRAGMATIC HERNIA WITHOUT OBSTRUCTION OR GANGRENE Status: Chronic (8) Hypertension Code(s): I10 - ESSENTIAL (PRIMARY) HYPERTENSION Status: Chronic (9) Microcytic anemia Code(s): D50.9 - IRON DEFICIENCY ANEMIA, UNSPECIFIED Status: Chronic (10) Morbid obesity with BMI of 45.0-49.9, adult Code(s): E66.01 - MORBID (SEVERE) OBESITY DUE TO EXCESS CALORIES; Z68.42 - BODY MASS INDEX (BMI) 45.0-49.9, ADULT Status: Chronic (11) Physical deconditioning Code(s): R53.81 - OTHER MALAISE Status: Chronic (12) Rheumatoid arthritis Code(s): M06.9 - RHEUMATOID ARTHRITIS, UNSPECIFIED Status: Chronic (13) RUPAL on CPAP Code(s): G47.33 - OBSTRUCTIVE SLEEP APNEA (ADULT) (PEDIATRIC); Z99.89 - DEPENDENCE ON OTHER ENABLING MACHINES AND DEVICES Status: Chronic - Plan old records reviewed/req, continue antibiotics, PT/OT, criminal justice social worker, respiratory therapy, DVT proph w/lovenox Consults: Palliative Care will consult palliative care today for goal of care she will need snu/rehab placement on discharge echo pending result medication reviewed as below symptomatic treatment pulmonary recommendation appreciated
--- NOTE | 2019-05-07 17:14 | PRG ---
DATE OF SERVICE: 05/07/2019 SUBJECTIVE: Cheng has no new complaints. She says she feels better, but she only looks a little bit better than yesterday. Echocardiogram still shows LVH and diastolic dysfunction. OBJECTIVE: GENERAL: She is in no distress at rest. VITAL SIGNS: She is afebrile, heart rate 79, respiratory rate 19, oximetry is 97% on 2 L, and blood pressure 120/80. HEENT: Pupils are equal. NECK: Supple. LUNGS: Remarkable for distant breath sounds with prolonged expiratory phase. HEART: Regular rhythm. S1 and S2 are normal. ABDOMEN: Soft and nontender. EXTREMITIES: With only trace edema. IMPRESSION: Chronic obstructive pulmonary disease/asthma, slowly improving. PLAN: Continue current care. Job ID: [id number]
[2019-05-07] MEDS: HumuLIN 70/30 (300 UNITS/3 ML VIAL) SC SCH (21:56)
[2019-05-07] MEDS: cefTRIAXone\\ROCEPHIN 1 GM in Sodium Chloride 0.9% 100 ML IVPB SCH (22:06)
[2019-05-07] MEDS: Montelukast Sodium 10 mg Tablet PO SCH (22:08)
[2019-05-08] MEDS: Doxepin HCl 10 MG CAP PO SCH ×2 (00:50→22:07)
[2019-05-08] MEDS: Ibuprofen 800 MG TAB PO PRN ×3 (00:51→14:44)
[2019-05-08] MEDS: HYDROcodone/Acetaminophen 7.5/325 mg Tablet PO PRN ×3 (00:52→14:45)
[2019-05-08] MEDS: Gabapentin 300 MG CAP PO SCH ×3 (00:52→14:44)
[2019-05-08] MEDS: methylPREDNISolone Sod Succ 40 MG VIAL IVP SCH ×3 (05:56→22:08)
[2019-05-08] MEDS: Mometasone/Formoterol 120 PUFF INHALER INH SCH ×2 (07:09→18:44)
[2019-05-08] MEDS ORDERED: Iron, Sodium Ferric Gluconate 250 MG in Sodium Chloride 0.9% 250 ML 250 ML IVPB SCH (07:45)
[2019-05-08] MEDS ORDERED: Iron Sucrose Complex 200 MG in Sodium Chloride 0.9% 250 ML 250 ML IVPB SCH (07:45)
[2019-05-08] MEDS: Ferrous Sulfate 325 MG TAB PO SCH (08:30)
[2019-05-08] MEDS: Enoxaparin Sodium 40 MG/0.4 ML SYRINGE SC SCH (08:32)
[2019-05-08] MEDS: guaiFENesin ER 600 MG TAB PO SCH ×2 (08:33→22:07)
[2019-05-08] MEDS: Lisinopril/Hydrochlorothiazide 20/25 mg Tablet PO SCH (08:33)
[2019-05-08] MEDS: Furosemide 20 MG TAB PO SCH (08:33)
[2019-05-08] MEDS: Lubiprostone 24 MCG CAP PO SCH ×2 (08:33→22:08)
[2019-05-08] MEDS: HumaLOG 300 UNITS/3 ML VIAL SC PRN ×4 (08:47→22:17)
[2019-05-08] MEDS ORDERED: Furosemide 40 MG/4 ML VIAL SLOW IVP SCH (09:45)
--- NOTE | 2019-05-08 11:18 | PDOC.HOSPP ---
- Subjective Subjective: Patient seen and examined. today she has more shortness of breath, she has gained weight in hospital, No overnight events - Objective Vital Signs & Weight: Vital Signs (12 hours) Temp Pulse Resp BP BP Pulse Ox 05/08/19 10:33 70 14 05/08/19 07:29 98.5 F 84 19 130/72 97 05/08/19 07:09 70 14 05/08/19 04:00 97.5 F L 72 13 119/67 94 L 05/08/19 02:36 11 L 05/08/19 00:00 97.5 F L 95 25 H 152/80 H 95 Weight Weight 245 lb 8 oz I&O: 05/07/19 05/08/19 05/09/19 06:59 06:59 06:59 Intake Total 965 Output Total 1150 Balance -185 Result Diagrams: 05/05/19 05:02 05/05/19 05:02 Additional Labs: Accuchecks 05/08/19 05/08/19 05/07/19 10:51 05:43 20:33 POC Glucose 230 H 196 H 217 H 05/07/19 05/07/19 16:50 11:28 POC Glucose 187 H 215 H EKG Reviewed by me: Yes ROS - Review of Systems All systems: All other ROS were reviewed and found negative. Constitutional: reports: weakness. denies: fever, chills, sweats, malaise, other ENT: denies: ear pain, ear discharge, nose pain, nose discharge, nose congestion , mouth pain, mouth swelling, throat pain, throat swelling, other Respiratory: reports: cough, shortness of breath, SOB with excertion. denies: dry, hemoptysis, pleuritic pain, sputum, wheezing, other Cardiovascular: denies: chest pain, palpitations, orthopnea, paroxysmal noc. dyspnea, edema, light headedness, other Gastrointestinal: denies: nausea, vomitting, abdominal pain, diarrhea, constipation, melena, hematochezia, other Genitourinary: denies: dysuria, frequency, incontinence, hematuria, retention, other Musculoskeletal: denies: neck pain, shoulder pain, arm pain, back pain, hand pain, leg pain, foot pain, other Skin: denies: rash, lesions, wilian, bruising, other - Medication Medications: Active Medications Generic Name Dose Route Start Last Admin Trade Name Freq PRN Reason Stop Dose Admin Hydrocodone Bitart/Acetaminophen 1 tab 05/05/19 01:01 05/08/19 08:33 [place] 7.5/325 PO 1 tab Q6HR PRN Administration Severe Pain (7-10) Albuterol/Ipratropium 3 ml 05/04/19 22:30 05/08/19 10:33 Duoneb NEB 3 ml [id number] DARYL Administration Bisacodyl 10 mg 05/04/19 20:18 05/06/19 12:33 Dulcolax [place] 10 mg DAILYPRN PRN Administration Constipation Cholecalciferol 5,000 units 05/05/19 09:00 05/08/19 08:31 Vitamin D3 PO 5,000 units DAILY DARYL Administration Diltiazem HCl 240 mg 05/05/19 09:00 05/08/19 08:32 Cardizem Cd PO 240 mg DAILY DARYL Administration Doxepin HCl 10 mg 05/05/19 21:00 05/08/19 00:50 Sinequan PO 10 mg HS DARYL Administration Enoxaparin Sodium 40 mg 05/05/19 09:00 05/08/19 08:32 Lovenox SC 40 mg 0900 DARYL Administration Ferrous Sulfate 325 mg 05/05/19 08:00 05/08/19 08:30 Feosol PO 325 mg QAM-WM DARYL Administration Furosemide 20 mg 05/05/19 09:00 05/08/19 08:33 Lasix PO 20 mg QAM DARYL Administration Furosemide 40 mg 05/08/19 09:45 05/08/19 10:02 Lasix SLOW IVP 05/08/19 12:00 40 mg NOW DARYL Administration Gabapentin 300 mg 05/05/19 09:00 05/08/19 08:33 Neurontin PO 300 mg TID DARYL Administration Guaifenesin 600 mg 05/04/19 21:00 05/08/19 08:33 Mucinex PO 600 mg Q12HR DARYL Administration Lisinopril/HCTZ 1 tab 05/05/19 09:00 05/08/19 08:33 Prinizide 20-25 PO 1 tab DAILY DARYL Administration Ferric Sodium Gluconate 270 mls @ 129.808 mls/hr 05/08/19 07:45 05/08/19 08: 30 Complex 250 mg/ Sodium IVPB 05/08/19 12:00 270 mls Chloride NOW DARYL Administration Ibuprofen 800 mg 05/05/19 01:01 05/08/19 08:34 Motrin PO 800 mg TID PRN Administration Mild Pain (1-3) Insulin Human Isoph/Insulin Regular 25 units 05/05/19 21:00 05/07/19 21:56 Humulin 70/30 SC 25 unit HS DARYL Administration Insulin Human Lispro 0 units 05/04/19 20:18 05/08/19 08:47 Humalog SC 2 unit .MODERATE SLIDING SC PRN Administration Moderate Correctional Scale Insulin Human Lispro 0 units 05/04/19 20:18 05/07/19 21:55 Humalog SC 2 unit .BEDTIME SLIDING SC PRN Administration Bedtime Correctional Scale Lubiprostone 24 mcg 05/05/19 09:00 05/08/19 08:33 Amitiza PO 24 mcg BID DARYL Administration Methylprednisolone Sodium Succinate 20 mg 05/05/19 14:00 05/08/19 05:56 Solu-Medrol IVP 20 mg 0600,1400,2200 DARYL Administration Mometasone Furoate/Formoterol Fumar 2 puff 05/05/19 06:30 05/08/19 07:09 Dulera 200 Mcg/5 Mcg Inhaler INH 2 puff BID-RT DARYL Administration Montelukast Sodium 10 mg 05/04/19 21:00 05/07/19 22:08 Singulair PO 10 mg QPM DARYL Administration Pantoprazole Sodium 40 mg 05/05/19 09:00 05/08/19 08:33 Protonix PO 40 mg DAILY DARYL Administration Sodium Chloride 10 ml 05/05/19 09:00 05/08/19 08:33 Flush - Normal Saline IVF 10 ml Q12HR DARYL Administration Sodium Chloride 10 ml 05/05/19 07:16 05/08/19 05:57 Flush - Normal Saline IVF 10 ml PRN PRN Administration Saline Flush - Exam awake alert, ill appearing Eye: PERRL, anicteric sclera ENT: normocephalic atraumatic, no oropharyngeal lesions Neck: supple, symmetric, no JVD Heart: RRR, no murmur, no gallops Respiratory: rales, wheezes Gastrointestinal: soft, non-tender, non-distended (obesity+), normal bowel sounds Extremities: no cyanosis, no clubbing, 1+ LE edema Skin: normal turgor, no lesions Neurological: CN's grossly intact, normal sensation to touch, no focal deficits Musculoskeletal: normal tone, normal strength Psychiatric: normal affect, normal behavior Hosp A/P (1) Acute on chronic respiratory failure with hypoxia Code(s): J96.21 - ACUTE AND CHRONIC RESPIRATORY FAILURE WITH HYPOXIA Status: Acute (2) COPD exacerbation Code(s): J44.1 - CHRONIC OBSTRUCTIVE PULMONARY DISEASE W (ACUTE) EXACERBATION Status: Acute (3) Hypokalemia Code(s): E87.6 - HYPOKALEMIA Status: Acute (4) Type 2 myocardial infarction Code(s): I21.A1 - MYOCARDIAL INFARCTION TYPE 2 Status: Acute (5) Diabetes type 2, controlled Code(s): E11.9 - TYPE 2 DIABETES MELLITUS WITHOUT COMPLICATIONS Status: Chronic (6) GERD (gastroesophageal reflux disease) Code(s): K21.9 - GASTRO-ESOPHAGEAL REFLUX DISEASE WITHOUT ESOPHAGITIS Status: Chronic (7) Hiatal hernia Code(s): K44.9 - DIAPHRAGMATIC HERNIA WITHOUT OBSTRUCTION OR GANGRENE Status: Chronic (8) Hypertension Code(s): I10 - ESSENTIAL (PRIMARY) HYPERTENSION Status: Chronic (9) Microcytic anemia Code(s): D50.9 - IRON DEFICIENCY ANEMIA, UNSPECIFIED Status: Chronic (10) Morbid obesity with BMI of 45.0-49.9, adult Code(s): E66.01 - MORBID (SEVERE) OBESITY DUE TO EXCESS CALORIES; Z68.42 - BODY MASS INDEX (BMI) 45.0-49.9, ADULT Status: Chronic (11) Physical deconditioning Code(s): R53.81 - OTHER MALAISE Status: Chronic (12) Rheumatoid arthritis Code(s): M06.9 - RHEUMATOID ARTHRITIS, UNSPECIFIED Status: Chronic (13) RUPAL on CPAP Code(s): G47.33 - OBSTRUCTIVE SLEEP APNEA (ADULT) (PEDIATRIC); Z99.89 - DEPENDENCE ON OTHER ENABLING MACHINES AND DEVICES Status: Chronic (14) LVH (left ventricular hypertrophy) Code(s): I51.7 - CARDIOMEGALY Status: Chronic (15) Pulmonary hypertension Code(s): I27.20 - PULMONARY HYPERTENSION, UNSPECIFIED Status: Chronic (16) Acute on chronic diastolic ACC/AHA stage C congestive heart failure Code(s): I50.33 - ACUTE ON CHRONIC DIASTOLIC (CONGESTIVE) HEART FAILURE Status : Acute - Plan old records reviewed/req, plan discussed w/ family, PT/OT, manager social work, respiratory therapy DC rocephin give venofer 200 mg ivpb today give lasix 40 mg iv one time repeat labs tomorrow will need placement on discharge medication reviewed as above symptomatic treatment on solumedrol does not see significant improvement
--- NOTE | 2019-05-08 18:10 | PRG ---
DATE OF SERVICE: 05/08/2019 SUBJECTIVE: Fabiana Anand has no new complaints. She says she is feeling a little bit better. She slept well last night. OBJECTIVE: VITAL SIGNS: She is afebrile, heart rate 77, respiratory rate 18, oximetry is 95% on 2 L, blood pressure 127/63. She said she wore her BiPAP last night. LUNGS: Distant and clear. HEART: Regular rhythm. ABDOMEN: Soft. IMPRESSION: 1. Chronic obstructive pulmonary disease/asthma exacerbation. Continue to improve. 2. Obesity with deconditioning. 3. Sleep apnea, compliant with BiPAP. PLAN: Continue supportive care. Job ID: [id number]
[2019-05-08] MEDS: Cefuroxime Axetil 250 MG TAB PO SCH (22:07)
[2019-05-08] MEDS: Montelukast Sodium 10 mg Tablet PO SCH (22:08)
[2019-05-08] MEDS: HumuLIN 70/30 (300 UNITS/3 ML VIAL) SC SCH (22:15)
[2019-05-09] MEDS: HYDROcodone/Acetaminophen 7.5/325 mg Tablet PO PRN ×2 (00:10→12:02)
[2019-05-09] MEDS: Ibuprofen 800 MG TAB PO PRN (00:11)
[2019-05-09] MEDS: Gabapentin 300 MG CAP PO SCH ×4 (00:11→15:18)
[2019-05-09 05:14] LABS: ALT (SGPT) 21 U/L (8-55); AST (SGOT) 16 U/L (5-34); Albumin 3.8 g/dL (3.4-4.8); Alkaline Phosphatase 60 U/L (40-150); Anion Gap 15 mmol/L (10-20); BUN (Urea Nitrogen) 54 mg/dL (9.8-20.1); Bilirubin, Total 0.2 mg/dL (0.2-1.2); Calc. Creatinine Clearance 40 mL/min (70-130); Calcium 8.8 mg/dL (7.8-10.44); Carbon Dioxide 28 mmol/L (23-31); Chloride 92 mmol/L (98-107); Estimated GFR-MDRD 23; Globulin 2.5 g/dL (2.4-3.5); Glucose 204 mg/dL (80-115); Potassium 4.5 mmol/L (3.5-5.1); Protein, Total 6.3 g/dL (6.0-8.3); Sodium 130 mmol/L (136-145)
[2019-05-09 05:23] LABS: #Lymphocytes 0.4 thou/uL (1.20-3.40); #Monocytes 0.4 thou/uL (0.11-0.59); #Neutrophils 9.6 thou/uL (1.40-6.50); %Eosinophils 0.3 % (0.0-10.0); %Lymphocytes 3.4 % (21.0-51.0); %Monocytes 3.8 % (0.0-10.0); %Neutrophils 92.5 % (42.0-75.0); Anisocytosis SLIGHT = 6-15 cells (100X) (0-5/hpf); Hemoglobin 8.1 g/dL (12.0-16.0); MDiff Complete? YES; Mean Corpuscular HGB CONC 30.5 g/dL (32.0-36.0); Mean Corpuscular Hemoglobin 23.7 pg (27.0-31.0); Mean Corpuscular Volume 77.6 fL (78.0-98.0); Platelet Count 279 thou/uL (130-400); RBC Distribution Width 18.5 % (11.5-14.5); Red Blood Cell (RBC) Count 3.42 mill/uL (4.20-5.40); Tear Drops SLIGHT = 2-5 cells (100X) (0-1/hpf); White Blood Cell (WBC) Count 10.4 thou/uL (4.8-10.8)
[2019-05-09] MEDS: HumaLOG 300 UNITS/3 ML VIAL SC PRN ×3 (06:23→21:00)
[2019-05-09] MEDS: methylPREDNISolone Sod Succ 40 MG VIAL IVP SCH (06:23)
[2019-05-09] MEDS: Mometasone/Formoterol 120 PUFF INHALER INH SCH ×2 (06:48→19:07)
[2019-05-09] MEDS: Enoxaparin Sodium 40 MG/0.4 ML SYRINGE SC SCH (08:12)
[2019-05-09] MEDS: Furosemide 20 MG TAB PO SCH (08:13)
[2019-05-09] MEDS: Cefuroxime Axetil 250 MG TAB PO SCH ×2 (08:13→21:01)
[2019-05-09] MEDS: Ferrous Sulfate 325 MG TAB PO SCH (08:14)
[2019-05-09] MEDS: Lubiprostone 24 MCG CAP PO SCH ×2 (08:14→21:01)
[2019-05-09] MEDS: guaiFENesin ER 600 MG TAB PO SCH ×2 (08:15→21:01)
[2019-05-09] MEDS: Lisinopril/Hydrochlorothiazide 20/25 mg Tablet PO SCH (08:15)
[2019-05-09] MEDS ORDERED: Polyethylene Glycol 3350 17 GM Packet PO SCH (08:45)
--- NOTE | 2019-05-09 09:04 | PRG ---
DATE OF SERVICE: 05/09/2019 SUBJECTIVE: Fabiana Anand is sitting on the side of the bed. She says she feels much better. OBJECTIVE: VITAL SIGNS: Heart rate is 70, respiratory rate is 14, and oximetry is 90% on 1 L. LUNGS: Clear today. HEART: Regular rhythm. ABDOMEN: Soft. IMPRESSION: Asthma/reactive airways/chronic obstructive pulmonary disease, clinically improved. PLAN: Continue the same. Increase her activity. Hopefully, she will be a candidate for discharge in 24 to 48 hours. Job ID: [id number]
[2019-05-09] MEDS ORDERED: Furosemide 20 MG TAB PO SCH ×2 (09:48→10:00)
[2019-05-09] MEDS ORDERED: Iron Sucrose Complex 200 MG in Sodium Chloride 0.9% 250 ML 250 ML IVPB SCH (10:00)
[2019-05-09] MEDS ORDERED: Iron, Sodium Ferric Gluconate 250 MG in Sodium Chloride 0.9% 100 ML IVPB SCH (10:30)
--- NOTE | 2019-05-09 10:51 | PQF ---
DORYS ROGERS SALIM NOORJIBHAI MD [id number] [facility]-[id number] CLINICAL DOCUMENTATION IMPROVEMENT CLARIFICATION FORM: ICD-10 Updated PLEASE DO AN ADDENDUM TO THE PROGRESS NOTE WITH ANY DOCUMENTATION UPDATES OR ADDITIONS AND CARRY THROUGH TO DC SUMMARY. THANK YOU. DATE: 05/09/2019 ATTN:DR. Eugene PENA Please exercise your independent, professional judgment in responding to the clarification form. Clinical indicators are provided on the bottom of this form for your review. Please check appropriate box(s): Conflicting documentation was noted in the Medical Record, please clarify if patient is being treated/monitored for: [ ] TYPE I MYOCARDIAL INFARCTION [ x ] TYPE II MYOCARDIAL INFARCTION [ ] Other diagnosis [ ] Unable to determine In addition, please specify: Present on Admission (POA): [ x ] Yes [ ] No [ ] Unable to determine For continuity of documentation, please document condition throughout progress notes and discharge summary. Thank You. CLINICAL INDICATORS - SIGNS / SYMPTOMS/ LABS 05/06 QUERY RESPONSE (BECKY) NSTEMI (IL TYPE I ) 8/ PN (BECKY) A/P: 4) TYPE 2 MYOCARDIAL INFARCTION 05/08 PN (BECKY) A/P : 4) TYPE 2 MYOCARDIAL INFARCTION RISK: RISK: HX CAD, HTN, (BECKY) DX MORBID OBESITY (JC) TREATMENTS: ASPIRIN / NITRO BID TRANSDERMAL IN ED CARDIAC SERIAL ENZYMES TELEMETRY MONITORING THANK YOU! CANDY (This form is maintained as a part of the permanent medical record) 2014 [employer]. All Rights Reserved [email or web address] [email or web address] [phone] MTDD
[2019-05-09 14:30] LABS: Bilirubin Negative (Negative); Blood, Urine Trace (Negative); Clarity Clear (Clear); Glucose, Urine (Dipstick) Normal (Negative); Leukocyte Negative Leu/uL (Negative); Nitrite Negative (Negative); Protein, Urine (Dipstick) Negative (Neg-Trace); RBC/HPF 0-3 HPF (0-3); Squamous Epithelial None Seen HPF (0-3); Urobilinogen Normal mg/dL (Less than 2); WBC/HPF 0-3 HPF (0-3)
[2019-05-09 14:40] LABS: Bacteria/HPF None Seen HPF (None Seen)
--- NOTE | 2019-05-09 14:57 | PDOC.HOSPP ---
- Subjective Subjective: Patient seen and examined. No new complaints. No overnight events - Objective Vital Signs & Weight: Vital Signs (12 hours) Temp Pulse Resp BP BP Pulse Ox 05/09/19 10:49 96 16 05/09/19 08:15 70 05/09/19 08:13 70 05/09/19 08:00 98.8 F 86 17 141/77 H 94 L 05/09/19 06:49 70 14 05/09/19 03:55 77 20 140/78 90 L Weight Weight 245 lb 5.992 oz I&O: 05/08/19 05/09/19 05/10/19 06:59 06:59 06:59 Intake Total 965 970 Output Total 1150 850 Balance -185 120 Result Diagrams: 05/09/19 04:34 05/09/19 04:34 Additional Labs: Accuchecks 05/09/19 05/09/19 05/08/19 10:57 05:49 21:15 POC Glucose 205 H 186 H 245 H 05/08/19 16:50 POC Glucose 197 H EKG Reviewed by me: Yes ROS - Review of Systems All systems: All other ROS were reviewed and found negative. Constitutional: denies: fever, chills, sweats, weakness, malaise, other Eyes: denies: pain, vision change, conjunctivae inflammation, eyelid inflammation, redness, other ENT: denies: ear pain, ear discharge, nose pain, nose discharge, nose congestion , mouth pain, mouth swelling, throat pain, throat swelling, other Respiratory: reports: SOB with excertion. denies: cough, dry, shortness of breath, hemoptysis, pleuritic pain, sputum, wheezing, other Cardiovascular: denies: chest pain, palpitations, orthopnea, paroxysmal noc. dyspnea, edema, light headedness, other Gastrointestinal: denies: nausea, vomitting, abdominal pain, diarrhea, constipation, melena, hematochezia, other Genitourinary: denies: dysuria, frequency, incontinence, hematuria, retention, other Musculoskeletal: denies: neck pain, shoulder pain, arm pain, back pain, hand pain, leg pain, foot pain, other Skin: denies: rash, lesions, wilian, bruising, other - Medication Medications: Active Medications Generic Name Dose Route Start Last Admin Trade Name Freq PRN Reason Stop Dose Admin Hydrocodone Bitart/Acetaminophen 1 tab 05/05/19 01:01 05/09/19 12:02 [place] 7.5/325 PO 1 tab Q6HR PRN Administration Severe Pain (7-10) Albuterol/Ipratropium 3 ml 05/04/19 22:30 05/09/19 10:49 Duoneb NEB 3 ml [id number] DARYL Administration Bisacodyl 10 mg 05/04/19 20:18 05/06/19 12:33 Dulcolax [place] 10 mg DAILYPRN PRN Administration Constipation Cefuroxime Axetil 250 mg 05/08/19 21:00 05/09/19 08:13 Ceftin PO 250 mg Q12HR DARYL Administration Cholecalciferol 5,000 units 05/05/19 09:00 05/09/19 08:12 Vitamin D3 PO 5,000 units DAILY DARYL Administration Diltiazem HCl 240 mg 05/05/19 09:00 05/09/19 08:13 Cardizem Cd PO 240 mg DAILY DARYL Administration Doxepin HCl 10 mg 05/05/19 21:00 05/08/19 22:07 Sinequan PO 10 mg HS DARYL Administration Ferrous Sulfate 325 mg 05/05/19 08:00 05/09/19 08:14 Feosol PO 325 mg QAM-WM DARYL Administration Gabapentin 300 mg 05/05/19 09:00 05/09/19 12:04 Neurontin PO 300 mg TID DARYL Administration Guaifenesin 600 mg 05/04/19 21:00 05/09/19 08:15 Mucinex PO 600 mg Q12HR DARYL Administration Insulin Human Isoph/Insulin Regular 25 units 05/05/19 21:00 05/08/19 22:15 Humulin 70/30 SC 25 unit HS DARYL Administration Insulin Human Lispro 0 units 05/04/19 20:18 05/09/19 06:23 Humalog SC 2 unit .MODERATE SLIDING SC PRN Administration Moderate Correctional Scale Insulin Human Lispro 0 units 05/04/19 20:18 05/08/19 22:17 Humalog SC 2 unit .BEDTIME SLIDING SC PRN Administration Bedtime Correctional Scale Lubiprostone 24 mcg 05/05/19 09:00 05/09/19 08:14 Amitiza PO 24 mcg BID DARYL Administration Mometasone Furoate/Formoterol Fumar 2 puff 05/05/19 06:30 05/09/19 06:48 Dulera 200 Mcg/5 Mcg Inhaler INH 2 puff BID-RT DARYL Administration Montelukast Sodium 10 mg 05/04/19 21:00 05/08/19 22:08 Singulair PO 10 mg QPM DARYL Administration Pantoprazole Sodium 40 mg 05/05/19 09:00 05/09/19 08:15 Protonix PO 40 mg DAILY DARYL Administration Sodium Chloride 10 ml 05/05/19 09:00 05/09/19 08:15 Flush - Normal Saline IVF 10 ml Q12HR DARYL Administration Sodium Chloride 10 ml 05/05/19 07:16 05/09/19 06:23 Flush - Normal Saline IVF 10 ml PRN PRN Administration Saline Flush - Exam NAD, awake alert Eye: PERRL, anicteric sclera ENT: normocephalic atraumatic, no oropharyngeal lesions Neck: supple, symmetric, no JVD Heart: RRR, no murmur, no gallops, no rubs Respiratory: no rales, wheezes Gastrointestinal: soft, non-tender, non-distended Extremities: no cyanosis, no clubbing, no edema Skin: normal turgor, no lesions Neurological: CN's grossly intact, normal sensation to touch, no focal deficits Musculoskeletal: normal tone, normal strength Psychiatric: normal affect, normal behavior Hosp A/P (1) Acute on chronic respiratory failure with hypoxia Code(s): J96.21 - ACUTE AND CHRONIC RESPIRATORY FAILURE WITH HYPOXIA Status: Acute (2) COPD exacerbation Code(s): J44.1 - CHRONIC OBSTRUCTIVE PULMONARY DISEASE W (ACUTE) EXACERBATION Status: Acute (3) Hypokalemia Code(s): E87.6 - HYPOKALEMIA Status: Acute (4) Type 2 myocardial infarction Code(s): I21.A1 - MYOCARDIAL INFARCTION TYPE 2 Status: Acute (5) Diabetes type 2, controlled Code(s): E11.9 - TYPE 2 DIABETES MELLITUS WITHOUT COMPLICATIONS Status: Chronic (6) GERD (gastroesophageal reflux disease) Code(s): K21.9 - GASTRO-ESOPHAGEAL REFLUX DISEASE WITHOUT ESOPHAGITIS Status: Chronic (7) Hiatal hernia Code(s): K44.9 - DIAPHRAGMATIC HERNIA WITHOUT OBSTRUCTION OR GANGRENE Status: Chronic (8) Hypertension Code(s): I10 - ESSENTIAL (PRIMARY) HYPERTENSION Status: Chronic (9) Microcytic anemia Code(s): D50.9 - IRON DEFICIENCY ANEMIA, UNSPECIFIED Status: Chronic (10) Morbid obesity with BMI of 45.0-49.9, adult Code(s): E66.01 - MORBID (SEVERE) OBESITY DUE TO EXCESS CALORIES; Z68.42 - BODY MASS INDEX (BMI) 45.0-49.9, ADULT Status: Chronic (11) Physical deconditioning Code(s): R53.81 - OTHER MALAISE Status: Chronic (12) Rheumatoid arthritis Code(s): M06.9 - RHEUMATOID ARTHRITIS, UNSPECIFIED Status: Chronic (13) RUPAL on CPAP Code(s): G47.33 - OBSTRUCTIVE SLEEP APNEA (ADULT) (PEDIATRIC); Z99.89 - DEPENDENCE ON OTHER ENABLING MACHINES AND DEVICES Status: Chronic (14) LVH (left ventricular hypertrophy) Code(s): I51.7 - CARDIOMEGALY Status: Chronic (15) Pulmonary hypertension Code(s): I27.20 - PULMONARY HYPERTENSION, UNSPECIFIED Status: Chronic (16) Acute on chronic diastolic ACC/AHA stage C congestive heart failure Code(s): I50.33 - ACUTE ON CHRONIC DIASTOLIC (CONGESTIVE) HEART FAILURE Status : Acute - Plan old records reviewed/req, plan discussed w/ family, PT/OT, social insurance administrator today creatinine is elevated, will dc lasix, lisinopril consult nephrology check urine for sodium and creatinine medication reviewed as above symptomatic treatment will need placement will repeat labs tomorrow change solumedrol to po prednisone
--- NOTE | 2019-05-09 16:38 | RAD ---
FRONTAL VIEW CHEST: Comparison: 05-04-19 Indication: Shortness of breath FINDINGS: There is persistent elevation of the left hemidiaphragm with underlying air density likely related to the gastric lumen. This indicates a prominent sized diaphragmatic hernia. There is prominence of the cardiomediastinal silhouette. Chest is otherwise similar. IMPRESSION: 1. Large left diaphragmatic hernia with underlying air density likely related to gastric lumen. 2. Prominent cardiomediastinal silhouette. POS: C
[2019-05-09] MEDS: Montelukast Sodium 10 mg Tablet PO SCH (21:01)
[2019-05-09] MEDS: HumuLIN 70/30 (300 UNITS/3 ML VIAL) SC SCH (21:30)
--- NOTE | 2019-05-09 22:48 | CON ---
DATE OF CONSULTATION: 05/09/2019 CONSULTING PHYSICIAN: Jeffry Copeland MD REASON FOR CONSULT: Acute kidney injury. REASON FOR ADMISSION: Respiratory failure. HISTORY OF PRESENT ILLNESS: This is a 63-year-old female with history of COPD, CHF, type 2 diabetes, hypertension, hyperlipidemia, came to the hospital with shortness of breath and has been evaluated. The patient had a CTA done on 05/04/2019, and creatinine was around 0.8, and this morning was found to be 2.5. Nephrology was consulted. The patient complains of shortness of breath on exertion. She was on Lasix, also including lisinopril and hydrochlorothiazide. No nausea, vomiting, chest pain, or palpitations. PAST MEDICAL HISTORY: Positive for COPD, CHF, type 2 diabetes, hypertension, hyperlipidemia. PAST SURGICAL HISTORY: Hysterectomy. HOME MEDICATIONS: 1. Prednisone. 2. Prinzide. 3. Gabapentin. 4. Lasix. 5. [place]. 6. Ibuprofen. 7. Albuterol. 8. Iron. 9. Vitamin D3. 10. Prilosec. 11. Pepcid. 12. Amitiza. 13. Doxepin. ALLERGIES: ADALIMUMAB, CHLORPROMAZINE, METHOTREXATE, AND PLAQUENIL. SOCIAL HISTORY: No smoking, alcohol, or illicit drugs. FAMILY HISTORY: No history of kidney disease. REVIEW OF SYSTEMS: CONSTITUTIONAL: Negative for weight loss or gain, ability to conduct usual activities. SKIN: Negative for rash, itching. EYES: Negative for double vision, pain. ENT/MOUTH: Negative for nose bleeding, neck stiffness, pain, tenderness. CARDIOVASCULAR: Negative for palpitations, dyspnea on exertion, orthopnea. RESPIRATORY: Negative for shortness of breath, wheezing, cough, hemoptysis, fever or night sweats. GASTROINTESTINAL: Negative for poor appetite, abdominal pain, heartburn, nausea, vomiting, constipation, or diarrhea. GENITOURINARY: Negative for urgency, frequency, dysuria, nocturia. MUSCULOSKELETAL: Negative for pain, swelling. NEUROLOGIC/PSYCHIATRIC: Negative for anxiety, depression. ALLERGY/IMMUNOLOGIC: Negative for skin rash, bleeding tendency. Rest are negative review of systems. PHYSICAL EXAMINATION: GENERAL: This is a well-built female, in no apparent distress. VITAL SIGNS: Temperature 98.8, pulse 70, respiratory rate 16, blood pressure 140/79. HEENT: Atraumatic, normocephalic. Oral mucosa is moist. NECK: Supple. CV: S1 and S2 heard. Rate and rhythm are regular. RESPIRATORY: Clear. GI: Abdomen is soft. MUSCULOSKELETAL: 1+ edema. DERMATOLOGIC: No skin rash. NEUROLOGIC: Alert and awake. PSYCHIATRIC: Mood and affect normal LABORATORY DATA: Hemoglobin is 10.1, potassium 4.5, BUN is 54, creatinine is 2.4. ASSESSMENT AND PLAN: 1. Acute kidney injury on chronic kidney disease stage 3, most likely from volume depletion, medication, cardiorenal syndrome and contrast nephropathy. Plan is to hold nephrotoxins including Lasix, lisinopril, and hydrochlorothiazide, and we will hydrate if tolerated. We will check chest x-ray for now. 2. Hyponatremia. We will follow. 3. Anemia. 4. Edema, controlled. 5. Hypertension, stable. 6. Plan is to hold nephrotoxic medications and we will hydrate if tolerated. We will check chest x-ray for now. Avoid nephrotoxins. Renally dose all medications. We will monitor. Thank you for the consult. Job ID: [id number]
[2019-05-10] MEDS: Gabapentin 300 MG CAP PO SCH ×4 (00:23→23:41)
[2019-05-10] MEDS: HYDROcodone/Acetaminophen 7.5/325 mg Tablet PO PRN ×3 (00:24→23:42)
[2019-05-10] MEDS: Doxepin HCl 10 MG CAP PO SCH ×2 (00:30→23:41)
[2019-05-10 05:16] LABS: Anisocytosis SLIGHT = 6-15 cells (100X) (0-5/hpf); Band 4 % (5-11); Hemoglobin 8.3 g/dL (12.0-16.0); Hypochromia SLIGHT = 6-15 cells (100X) (0-5/hpf); Lymphocytes 5 % (21-51); MDiff Complete? YES; Mean Corpuscular HGB CONC 29.8 g/dL (32.0-36.0); Mean Corpuscular Hemoglobin 23.1 pg (27.0-31.0); Mean Corpuscular Volume 77.5 fL (78.0-98.0); Mean Platelet Volume 8.8 fL (7.4-10.4); Monocytes 8 % (0-10); Neutrophil 83 % (42-75); Platelet Count 305 thou/uL (130-400); RBC Distribution Width 18.5 % (11.5-14.5); Red Blood Cell (RBC) Count 3.58 mill/uL (4.20-5.40); White Blood Cell (WBC) Count 12.2 thou/uL (4.8-10.8)
[2019-05-10 05:17] LABS: Anion Gap 14 mmol/L (10-20); BUN (Urea Nitrogen) 39 mg/dL (9.8-20.1); Calc. Creatinine Clearance 83 mL/min (70-130); Calcium 9.6 mg/dL (7.8-10.44); Carbon Dioxide 31 mmol/L (23-31); Chloride 96 mmol/L (98-107); Estimated GFR-MDRD 54; Glucose 187 mg/dL (80-115); Potassium 4.3 mmol/L (3.5-5.1); Sodium 137 mmol/L (136-145)
[2019-05-10] MEDS: Mometasone/Formoterol 120 PUFF INHALER INH SCH ×2 (06:34→18:25)
[2019-05-10] MEDS ORDERED: Fleet Enema 133 ML BOT PR PRN (08:23)
[2019-05-10] MEDS: Ferrous Sulfate 325 MG TAB PO SCH (09:32)
[2019-05-10] MEDS: Cefuroxime Axetil 250 MG TAB PO SCH ×2 (09:33→20:55)
[2019-05-10] MEDS: Amlodipine 10 MG TAB PO SCH (09:33)
[2019-05-10] MEDS: predniSONE 20 MG TAB PO SCH (09:33)
[2019-05-10] MEDS: guaiFENesin ER 600 MG TAB PO SCH ×2 (09:34→20:56)
[2019-05-10] MEDS: Lubiprostone 24 MCG CAP PO SCH ×2 (09:35→20:56)
[2019-05-10] MEDS: Enoxaparin Sodium 30 MG/0.3 ML SYRINGE SC SCH (09:36)
--- NOTE | 2019-05-10 12:38 | PDOC.HOSPP ---
- Subjective Subjective: Patient seen and examined. No new complaints. No overnight events no bowel movement since admission - Objective Vital Signs & Weight: Vital Signs (12 hours) Temp Pulse Resp BP Pulse Ox 05/10/19 09:34 94 05/10/19 09:33 94 05/10/19 07:38 98.5 F 94 20 166/75 H 93 L 05/10/19 07:15 96 05/10/19 06:34 80 14 05/10/19 04:00 97.8 F 84 18 141/93 H 93 L 05/10/19 02:07 87 14 92 L Weight Weight 243 lb 9.6 oz I&O: 05/09/19 05/10/19 05/11/19 06:59 06:59 06:59 Intake Total 970 1320 Output Total 850 500 Balance 120 820 Result Diagrams: 05/10/19 04:33 05/10/19 04:33 Additional Labs: Accuchecks 05/10/19 05/10/19 05/09/19 11:58 05:37 20:12 POC Glucose 176 H 187 H 255 H 05/09/19 16:45 POC Glucose 311 H Radiology Reviewed by me: Yes EKG Reviewed by me: Yes ROS - Review of Systems All systems: All other ROS were reviewed and found negative. Constitutional: reports: weakness Eyes: denies: pain, vision change, conjunctivae inflammation, eyelid inflammation, redness, other ENT: denies: ear pain, ear discharge, nose pain, nose discharge, nose congestion , mouth pain, mouth swelling, throat pain, throat swelling, other Respiratory: reports: SOB with excertion. denies: cough, dry, shortness of breath, hemoptysis, pleuritic pain, sputum, wheezing, other Cardiovascular: denies: chest pain, palpitations, orthopnea, paroxysmal noc. dyspnea, edema, light headedness, other Gastrointestinal: reports: constipation. denies: nausea, vomitting, abdominal pain, diarrhea, melena, hematochezia, other Genitourinary: denies: dysuria, frequency, incontinence, hematuria, retention, other Musculoskeletal: denies: neck pain, shoulder pain, arm pain, back pain, hand pain, leg pain, foot pain, other Skin: denies: rash, lesions, wilian, bruising, other - Medication Medications: Active Medications Generic Name Dose Route Start Last Admin Trade Name Freq PRN Reason Stop Dose Admin Hydrocodone Bitart/Acetaminophen 1 tab 05/05/19 01:01 05/10/19 00:24 [place] 7.5/325 PO 1 tab Q6HR PRN Administration Severe Pain (7-10) Albuterol/Ipratropium 3 ml 05/04/19 22:30 05/10/19 06:34 Duoneb NEB 3 ml [id number] DARYL Administration Amlodipine Besylate 10 mg 05/10/19 09:00 05/10/19 09:33 Norvasc PO 10 mg DAILY DARYL Administration Bisacodyl 10 mg 05/04/19 20:18 05/06/19 12:33 Dulcolax ID 10 mg DAILYPRN PRN Administration Constipation Cefuroxime Axetil 250 mg 05/08/19 21:00 05/10/19 09:33 Ceftin PO 250 mg Q12HR DARYL Administration Cholecalciferol 5,000 units 05/05/19 09:00 05/10/19 09:34 Vitamin D3 PO 5,000 units DAILY DARYL Administration Diltiazem HCl 240 mg 05/05/19 09:00 05/10/19 09:34 Cardizem Cd PO 240 mg DAILY DARYL Administration Doxepin HCl 10 mg 05/05/19 21:00 05/10/19 00:30 Sinequan PO 10 mg HS DARYL Administration Enoxaparin Sodium 30 mg 05/09/19 09:53 05/10/19 09:36 Lovenox SC 30 mg 0900 DARYL Administration Ferrous Sulfate 325 mg 05/05/19 08:00 05/10/19 09:32 Feosol PO 325 mg QAM-WM DARYL Administration Gabapentin 300 mg 05/05/19 09:00 05/10/19 09:34 Neurontin PO 300 mg TID DARYL Administration Guaifenesin 600 mg 05/04/19 21:00 05/10/19 09:34 Mucinex PO 600 mg Q12HR DARYL Administration Insulin Human Isoph/Insulin Regular 25 units 05/05/19 21:00 05/09/19 21:30 Humulin 70/30 SC 25 unit HS DARYL Administration Insulin Human Lispro 0 units 05/04/19 20:18 05/09/19 18:01 Humalog SC 8 unit .MODERATE SLIDING SC PRN Administration Moderate Correctional Scale Insulin Human Lispro 0 units 05/04/19 20:18 05/09/19 21:00 Humalog SC 3 unit .BEDTIME SLIDING SC PRN Administration Bedtime Correctional Scale Lubiprostone 24 mcg 05/05/19 09:00 05/10/19 09:35 Amitiza PO 24 mcg BID DARYL Administration Mometasone Furoate/Formoterol Fumar 2 puff 05/05/19 06:30 05/10/19 06:34 Dulera 200 Mcg/5 Mcg Inhaler INH 2 puff BID-RT DARYL Administration Montelukast Sodium 10 mg 05/04/19 21:00 05/09/19 21:01 Singulair PO 10 mg QPM DARYL Administration Pantoprazole Sodium 40 mg 05/05/19 09:00 05/10/19 09:34 Protonix PO 40 mg DAILY DARYL Administration Prednisone 40 mg 05/10/19 08:00 05/10/19 09:33 Prednisone PO 40 mg QAM-WM DARYL Administration Sodium Biphosphate/Sodium Phosphate 133 ml 05/10/19 08:23 05/10/19 09:36 Fleet Enema ID 05/10/19 23:59 133 ml ONE PRN Administration Constipation Sodium Chloride 10 ml 05/05/19 09:00 05/10/19 09:39 Flush - Normal Saline IVF 10 ml Q12HR DARYL Administration Sodium Chloride 10 ml 05/05/19 07:16 05/09/19 06:23 Flush - Normal Saline IVF 10 ml PRN PRN Administration Saline Flush - Exam NAD, ill appearing Eye: PERRL, anicteric sclera ENT: normocephalic atraumatic, no oropharyngeal lesions Neck: supple, symmetric, no JVD Heart: RRR, no murmur, no gallops Respiratory: CTAB, rales, rhonchi Gastrointestinal: soft, non-tender, non-distended, normal bowel sounds Extremities: no cyanosis, no clubbing Skin: normal turgor, no lesions Neurological: CN's grossly intact, normal sensation to touch Musculoskeletal: normal tone, normal strength Psychiatric: normal affect, normal behavior Hosp A/P (1) Acute on chronic respiratory failure with hypoxia Code(s): J96.21 - ACUTE AND CHRONIC RESPIRATORY FAILURE WITH HYPOXIA Status: Acute (2) COPD exacerbation Code(s): J44.1 - CHRONIC OBSTRUCTIVE PULMONARY DISEASE W (ACUTE) EXACERBATION Status: Acute (3) Hypokalemia Code(s): E87.6 - HYPOKALEMIA Status: Acute (4) Type 2 myocardial infarction Code(s): I21.A1 - MYOCARDIAL INFARCTION TYPE 2 Status: Acute (5) Diabetes type 2, controlled Code(s): E11.9 - TYPE 2 DIABETES MELLITUS WITHOUT COMPLICATIONS Status: Chronic (6) GERD (gastroesophageal reflux disease) Code(s): K21.9 - GASTRO-ESOPHAGEAL REFLUX DISEASE WITHOUT ESOPHAGITIS Status: Chronic (7) Hiatal hernia Code(s): K44.9 - DIAPHRAGMATIC HERNIA WITHOUT OBSTRUCTION OR GANGRENE Status: Chronic (8) Hypertension Code(s): I10 - ESSENTIAL (PRIMARY) HYPERTENSION Status: Chronic (9) Microcytic anemia Code(s): D50.9 - IRON DEFICIENCY ANEMIA, UNSPECIFIED Status: Chronic (10) Morbid obesity with BMI of 45.0-49.9, adult Code(s): E66.01 - MORBID (SEVERE) OBESITY DUE TO EXCESS CALORIES; Z68.42 - BODY MASS INDEX (BMI) 45.0-49.9, ADULT Status: Chronic (11) Physical deconditioning Code(s): R53.81 - OTHER MALAISE Status: Chronic (12) Rheumatoid arthritis Code(s): M06.9 - RHEUMATOID ARTHRITIS, UNSPECIFIED Status: Chronic (13) RUPAL on CPAP Code(s): G47.33 - OBSTRUCTIVE SLEEP APNEA (ADULT) (PEDIATRIC); Z99.89 - DEPENDENCE ON OTHER ENABLING MACHINES AND DEVICES Status: Chronic (14) LVH (left ventricular hypertrophy) Code(s): I51.7 - CARDIOMEGALY Status: Chronic (15) Pulmonary hypertension Code(s): I27.20 - PULMONARY HYPERTENSION, UNSPECIFIED Status: Chronic (16) Acute on chronic diastolic ACC/AHA stage C congestive heart failure Code(s): I50.33 - ACUTE ON CHRONIC DIASTOLIC (CONGESTIVE) HEART FAILURE Status : Acute - Plan old records reviewed/req, plan discussed w/ family, PT/OT, social insurance analyst, respiratory therapy fleet enema today medication reviewed as above symptomatic treatment add miralax will repeat labs tomorrow
--- NOTE | 2019-05-10 13:17 | RAD ---
SUPINE ABDOMEN: Date: 05/10/19 INDICATION: Constipation. COMPARISON: CT abdomen dated 12/04/18. FINDINGS: There is scattered stool in the right colon. No significant stool in the left colon. Small bowel gas pattern unremarkable. No abnormal calcification or mass effect. IMPRESSION: Unremarkable bowel gas pattern. POS: [facility]
--- NOTE | 2019-05-10 15:00 | PRG ---
DATE OF SERVICE: 05/10/2019 SUBJECTIVE: Patient was seen and examined at bedside and overnight events noted. Patient denies any shortness of breath or chest pain or palpitation. No history of nausea or vomiting or diarrhea or fever or chills or cramps. OBJECTIVE: GENERAL: This is a well-built female, in no apparent distress. VITAL SIGNS: Temperature 98.1, heart rate 84, respiratory rate 18, blood pressure 137/73. HEENT: Atraumatic, normocephalic. Oral mucosa is moist NECK: Supple. CARDIOVASCULAR: S1, S2 heard. Rate and rhythm regular. RESPIRATORY: Clear to auscultation. GASTROINTESTINAL: Abdomen is soft. MUSCULOSKELETAL: No tenderness. No edema. DERMATOLOGIC: No skin rash. NEUROLOGIC: Alert and awake and oriented X3. No focal neurologic deficits. Moving all the extremities. PSYCHIATRIC: Mood and affect normal. LABORATORY DATA: Potassium 4.3, BUN is 39 and creatinine is 1.23. ASSESSMENT AND PLAN: 1. Acute kidney injury, much better. Avoid nephrotoxins. Hold diuretics for now. 2. Hyponatremia. Limit fluid intake. 3. Anemia. 4. Edema. 5. Hypertension. PLAN: Plan to monitor renal function. Avoid nephrotoxins. Job ID: [id number]
[2019-05-10] MEDS: Acetaminophen 325 MG TAB PO PRN ×2 (15:08→23:45)
[2019-05-10] MEDS: HumaLOG 300 UNITS/3 ML VIAL SC PRN ×2 (18:02→21:06)
[2019-05-10] MEDS: Montelukast Sodium 10 mg Tablet PO SCH (20:56)
[2019-05-10] MEDS: HumuLIN 70/30 (300 UNITS/3 ML VIAL) SC SCH (20:56)
[2019-05-11 05:15] LABS: Anion Gap 12 mmol/L (10-20); BUN (Urea Nitrogen) 25 mg/dL (9.8-20.1); Calc. Creatinine Clearance 129 mL/min (70-130); Calcium 9.8 mg/dL (7.8-10.44); Carbon Dioxide 33 mmol/L (23-31); Chloride 99 mmol/L (98-107); Estimated GFR-MDRD 89; Glucose 143 mg/dL (80-115); Potassium 3.9 mmol/L (3.5-5.1); Sodium 140 mmol/L (136-145)
[2019-05-11 05:47] LABS: Band 1 % (5-11); Hypochromia SLIGHT = 6-15 cells (100X) (0-5/hpf); Lymphocytes 5 % (21-51); MDiff Complete? YES; Mean Corpuscular Hemoglobin 23.7 pg (27.0-31.0); Mean Corpuscular Volume 78.8 fL (78.0-98.0); Mean Platelet Volume 9.4 fL (7.4-10.4); Monocytes 12 % (0-10); Myelocyte 4 % (0-0); Neutrophil 78 % (42-75); Platelet Count 301 thou/uL (130-400); RBC Distribution Width 18.3 % (11.5-14.5); Red Blood Cell (RBC) Count 3.39 mill/uL (4.20-5.40); White Blood Cell (WBC) Count 11.9 thou/uL (4.8-10.8)
[2019-05-11] MEDS: Mometasone/Formoterol 120 PUFF INHALER INH SCH ×2 (07:02→18:28)
[2019-05-11] MEDS: predniSONE 20 MG TAB PO SCH (08:49)
[2019-05-11] MEDS: Lubiprostone 24 MCG CAP PO SCH (08:50)
[2019-05-11] MEDS: guaiFENesin ER 600 MG TAB PO SCH (08:50)
[2019-05-11] MEDS: Cefuroxime Axetil 250 MG TAB PO SCH (08:50)
[2019-05-11] MEDS: Amlodipine 10 MG TAB PO SCH (08:50)
[2019-05-11] MEDS: Ferrous Sulfate 325 MG TAB PO SCH (08:50)
[2019-05-11] MEDS: Enoxaparin Sodium 30 MG/0.3 ML SYRINGE SC SCH (08:51)
[2019-05-11] MEDS: Gabapentin 300 MG CAP PO SCH ×3 (08:51→15:49)
[2019-05-11] MEDS ORDERED: Polyethylene Glycol 3350 17 GM Packet PO SCH (09:00)
[2019-05-11] MEDS: HYDROcodone/Acetaminophen 7.5/325 mg Tablet PO PRN (10:51)
[2019-05-11] MEDS: Acetaminophen 325 MG TAB PO PRN (10:55)
[2019-05-11] MEDS: HumaLOG 300 UNITS/3 ML VIAL SC PRN ×2 (10:56→17:05)
--- NOTE | 2019-05-11 11:07 | PRG ---
DATE OF SERVICE: 05/11/2019 SUBJECTIVE: Patient was seen and examined at bedside and overnight events noted. Patient denies any shortness of breath or chest pain or palpitation. No history of nausea or vomiting or diarrhea or fever or chills or cramps. OBJECTIVE: GENERAL: This is a well-built female, in no apparent distress. VITAL SIGNS: Temperature 97.9. Heart rate 86. Respiratory rate 18. Blood pressure 168/76. HEENT: Atraumatic, normocephalic. Oral mucosa is moist NECK: Supple. CARDIOVASCULAR: S1, S2 heard. Rate and rhythm regular. RESPIRATORY: Clear to auscultation. GASTROINTESTINAL: Abdomen is soft. MUSCULOSKELETAL: No tenderness. No edema. DERMATOLOGIC: No skin rash. NEUROLOGIC: Alert and awake and oriented X3. No focal neurologic deficits. Moving all the extremities. PSYCHIATRIC: Mood and affect normal. LABORATORY DATA: Potassium 3.9, BUN is 25, and creatinine is 0.7. ASSESSMENT AND PLAN: 1. Acute kidney injury, better. 2. Hyponatremia. 3. Anemia. 4. Edema. 5. Hypertension. Creatinine is back to normal. Avoid nephrotoxins. I will sign off. Please call back with any questions. Job ID: [id number]
--- NOTE | 2019-05-11 15:12 | PRG ---
DATE OF SERVICE: 05/11/2019 SUBJECTIVE: Ms. Anand is tentatively going to rehab. She . OBJECTIVE: VITAL SIGNS: She is afebrile. Heart rate is in the 80s, respiratory rate , her expiratory phase is returning to normal. HEART: Regular rhythm. ABDOMEN: Soft. LABORATORY DATA: White count 11.9, platelets 301,000. Sodium 140, potassium 3.9. IMPRESSION: 1. Reactive airways, clinically improved. 2. Sleep apnea, CPAP at night. 3. Kidney disease. 4. Anemia. 5. Obesity. 6. Hypertension. Overall, renal is normal. Her bronchospasm appears to be clinically resolved. Probably decrease her prednisone in a couple of days. Job ID: [id number]
[2019-05-11 17:35] VITALS: BP 167/73; TEMP 98.4
[2019-05-12] MEDS ORDERED: Enoxaparin Sodium 40 MG/0.4 ML SYRINGE SC SCH (09:00)
--- NOTE | 2019-05-12 12:02 | DIS ---
DATE OF ADMISSION: 05/04/2019 DATE OF DISCHARGE: 05/11/2019 HOSPITAL COURSE: This is a 63-year-old female with past medical history of COPD, oxygen dependent, 3 L nasal cannula continuously, diastolic congestive heart failure, hypertension, diabetes mellitus, insulin dependence, anemia, and renal insufficiency, presents on 05/04/2019, with worsening shortness of breath. The patient was admitted from the emergency department for worsening hypoxia, more profound than her baseline. The patient had CT angiography of the chest, please see full report for details. No acute pulmonary embolism was identified. The patient with multiple contributing factors including acute COPD exacerbation, the patient was placed on antibiotics and steroids in addition to small volume nebulizers. The patient's congestive heart failure was treated with IV Lasix, unfortunately the patient did develop some renal insuffiencey with the creatinine maximizing up 2.5 above her baseline of 0.8. For renal insuffiencey, Nephrology consultation was requested. Please see full consultation and progress notes for details. With Nephrology input, the patient's renal function stabilized and retuned to her normal baseline level of 0.79. With maximal medical therapy, the patient's pulmonary status continued to improve daily. Please see progress notes for full details. The patient profoundly weakened and debilitated due to severity of her illness, and she worked with physical therapy and occupational therapy who recommended the patient is safe for discharge to acute rehab. The patient is recommended safe for discharge by specialist on 05/11/2019. The patient's oxygenation at her baseline with 3 L nasal cannula at this time. MEDICATIONS: Please see MAR summary for full details. LABORATORY DATA: Please see full laboratory data in [facility] for full details. ASSESSMENT: 1. Shortness of breath with hypoxia. 2. Acute chronic obstructive pulmonary disease exacerbation. 3. Acute diastolic congestive heart failure. 4. Edema. 5. Microcytic anemia. 6. Hypertension. 7. Acute kidney injury. 8. Hyponatremia. 9. Elevated BMI. 10. Obstructive sleep apnea. 11. Elevated troponins. 12. Gastroesophageal reflux disease. 13. Hiatal hernia. 14. Acute on chronic respiratory failure with hypoxia. 15. Physical deconditioning. 16. Rheumatoid arthritis. 17. Left ventricular hypertrophy. 18. Pulmonary hypertension. . Job ID: [id number]
== END 2019-05-11 20:35 | DRG 280 ==
LOC: ERS 12:54 → 2NO 20:04
PROVIDERS: ADMIT Internal Medicine; ATTEND Internal Medicine
DX: I21.A1 Myocardial infarction type 2 (principal); J96.21 Acute and chronic respiratory failure with hypoxia; J44.1 Chronic obstructive pulmonary disease with (acute) exacerbation; I50.32 Chronic diastolic (congestive) heart failure; I13.0 Hypertensive heart and chronic kidney disease with heart failure and stage 1 through stage 4 chronic kidney disease, or unspecified chronic kidney disease; Z68.42 Body mass index [BMI] 45.0-49.9, adult; N17.9 Acute kidney failure, unspecified; E87.1 Hypo-osmolality and hyponatremia; N18.3 Chronic kidney disease, stage 3 (moderate); D63.1 Anemia in chronic kidney disease; E87.6 Hypokalemia; E78.5 Hyperlipidemia, unspecified; M06.9 Rheumatoid arthritis, unspecified; I25.10 Atherosclerotic heart disease of native coronary artery without angina pectoris; F41.9 Anxiety disorder, unspecified; F32.9 Major depressive disorder, single episode, unspecified; K21.9 Gastro-esophageal reflux disease without esophagitis; G47.33 Obstructive sleep apnea (adult) (pediatric); E66.01 Morbid (severe) obesity due to excess calories; I27.20 Pulmonary hypertension, unspecified; K44.9 Diaphragmatic hernia without obstruction or gangrene; Z88.8 Allergy status to other drugs, medicaments and biological substances; Z99.81 Dependence on supplemental oxygen; Z79.52 Long term (current) use of systemic steroids; Z79.899 Other long term (current) drug therapy
CPT/HCPCS: 36415; 36416; 71045; 71275; 74018; 80048; 80053; 81003; 81015; 82550; 82553; 82570; 82728; 83880; 84300; 84484; 85025; 93005; 93306; 94640; 94660; 94760; J0696; J1650; J1756; J1815; J1940; J2916; J2920; J3490; J7050; J7512; J7620; Q9967

== ENCOUNTER 2019-08-05 19:30 | Outpatient (CLI) | payer MEDICARE | END 2019-08-05 19:31 | disposition home or self-care (01) | LOC: SLEEPLAB 19:30 | PROVIDERS: ATTEND Internal Medicine Critical Care Medicine | DX: G47.33 Obstructive sleep apnea (adult) (pediatric) (principal); R09.02 Hypoxemia | CPT/HCPCS: 95811 ==

== ENCOUNTER 2019-10-21 07:52 | Observation (INO) | payer MEDICARE ==
[2019-10-21] MEDS ORDERED: diphenhydrAMINE 50 MG/ML VIAL ONE (08:24)
[2019-10-21] MEDS ORDERED: Haloperidol Lactate 5 MG/ML VIAL ONE (08:24)
[2019-10-21] MEDS ORDERED: hydrALAZINE 20 MG/ML VIAL SLOW IVP PRN (10:15)
[2019-10-21] MEDS ORDERED: Acetaminophen 325 MG TAB PO PRN (10:15)
[2019-10-21 10:44] VITALS: BMI 45.5
[2019-10-21] MEDS: Sodium Chloride 0.9% 1,000 ML IV SCH (10:49)
--- NOTE | 2019-10-21 11:45 | HP ---
PRIMARY CARE PHYSICIAN: Velia Chu MD. CHIEF COMPLAINT: "I passed out last night." HISTORY OF PRESENT ILLNESS: Ms. Anand is a very pleasant 64-year-old female, who is a retired nurse. She had worked here at [employer] in the past. She says that she has these episodes off and on for many years, but she says it has been getting worse. She says that last night she started having some abdominal cramping and felt extremely nauseated. This was around 8:00 p.m. She says that about 11:00 p.m., she just started vomiting. It was just like "water" and began having diarrhea here in the ER. She has been having greenish-like watery stools. No blood. She says that last night after she had vomited several times, she was sitting next to her and feeling extremely weak and then started noticing that she was going to pass out and did. Normally, she says she has had these episodes many times. She says it had been called vasovagal syncope and she would know that it would pass, but this time she says the episodes have become more frequent and as a result, she decided to come to the hospital for evaluation. She denies any chest pain during this time. No fevers. No chills. No palpitations. She says she normally has chronic constipation and she is on Amitiza. She does see Dr. Maurer and says that she has had a cardiac workup in the past, but has not had an echocardiogram recently and also with regard to these abdominal pains, she says that she has seen Dr. Weems and has had an upper and lower GI and these have been essentially normal other than a hiatal hernia that she said. She does admit that recently she was found to have an umbilical hernia and in the process of being referred to see Dr. Hurley for this evaluation, but this happened in the interim. REVIEW OF SYSTEMS: All systems were reviewed and are negative except for that mentioned in the history of present illness. PAST MEDICAL HISTORY: Significant for COPD, diastolic heart failure, hypertension, obstructive sleep apnea, rheumatoid arthritis, pulmonary hypertension, gastroesophageal reflux disease, and history of hyponatremia. PAST SURGICAL HISTORY: She has had a hysterectomy. ALLERGIES: TO PLAQUENIL, CHLORPROMAZINE, METHOTREXATE, AND ADALIMUMAB. FAMILY HISTORY: No history of any heritable diseases that she knows of. SOCIAL HISTORY: She is a nonsmoker and nondrinker. She is , has 2 children. MEDICATIONS: She says they are the same as her previous admission. These are taken from the ER records and includes; 1. Lisinopril/hydrochlorothiazide 20/25 once daily. 2. Amitiza 24 mcg daily. 3. Doxepin 10 mg daily. 4. Vitamin D once daily. 5. Pepcid 20 mg once a day. 6. Albuterol nebs as needed. 7. Ibuprofen 800 mg t.i.d. 8. [place] 7.5/325 as needed. 9. Prednisone 20 mg daily. PHYSICAL EXAMINATION: GENERAL: She is alert and oriented. She is morbidly obese and does appear a bit chronically ill. VITAL SIGNS: Blood pressure is 161/103, heart rate 112, respiratory rate of 21, and temperature is 97.9. HEENT: Pupils are equal, round, and reactive. Extraocular muscles are intact. She does have some mild periorbital edema and some edema on the cheeks. NECK: There is no adenopathy. No bruits. LUNGS: Clear to auscultation. There are no wheezing, no rales, no rhonchi. CARDIOVASCULAR: She has a normal S1 and S2. There is no S3 or S4. No murmurs, clicks, or rubs. There was possible S4. ABDOMEN: Obese. It is soft. She does have an umbilical hernia, which is easily reducible, but there was some tenderness around this area. No rebound. No guarding. No evidence of organomegaly. EXTREMITIES: There is no edema. No calf tenderness. NEUROLOGICAL: Grossly, this is intact. She did have some scattered crepitus in her ankles, knees, and shoulders, but no joint effusions. SKIN AND INTEGUMENT: No skin changes. No rashes. DIAGNOSTIC DATA: Her lab results were taken from the previous ER and the white blood cell count is 8, hemoglobin 12.2, hematocrit is 41.3, and platelet count is 312. The sodium is 144, potassium 4.0, chloride is 106, CO2 is 24, BUN is 17, creatinine 0.82, and glucose is 146. She had an EKG, in which there was sinus rhythm, the rate was 98. There was voltage criteria for LVH and some T-wave inversions in I and aVL. She had a CT angiogram of the chest, which was negative for PE. ASSESSMENT AND PLAN: 1. This is a pleasant 64-year-old female, who presents with episode of diarrhea, vomiting, and then syncope. It is possible this could all be related to a GI and possible moderate volume depletion. However, she says she feels like these episodes are becoming more frequent. For this reason, she will be placed in observation. We will place her on some moderate IV hydration. Get carotid Dopplers and an echo. Trend her cardiac enzymes. 2. With regard to the diarrhea, we will check stool studies and we will also get abdominal films to rule out obstruction or partial obstruction. 3. Hypertension. We will need to reconcile and restart her blood pressure medicines. 4. Chronic obstructive pulmonary disease. This appears to be clinically stable. We will have DuoNeb available. 5. She will be placed on DVT and GI prophylaxis. Job ID: [id number]
--- NOTE | 2019-10-21 13:12 | ULT ---
BILATERAL CAROTID DUPLEX ULTRASOUND: HISTORY: Syncope TECHNIQUE: Grayscale, color-flow and spectral Doppler ultrasound imaging of the extracranial carotid artery syst ems was performed bilaterally. FINDINGS: There is mild plaque formation on either side. The peak systolic velocity in the right ICA measures 35 cm/s with an end-diastolic velocity of 7 cm/s and a systolic ratio of 0.48. The peak systolic velocity in the left ICA measures 32 cm/s with an end-diastolic velocity of 8 c m/s and a systolic ratio of 0.41. Flow in the left vertebral artery remains antegrade. Right vertebral artery is not well seen. IMPRESSION: No evidence of hemodynamically significant stenosis.
[2019-10-21] MEDS: Vancomycin HCl 25 MG/ML Oral PO SCH ×3 (19:03→23:52)
[2019-10-21] MEDS: Mometasone/Formoterol 120 PUFF INHALER INH SCH (19:19)
[2019-10-21] MEDS: Gabapentin 300 MG CAP PO SCH (20:11)
[2019-10-21] MEDS ORDERED: Doxepin HCl 10 MG CAP PO SCH (21:00)
[2019-10-21] MEDS ORDERED: Ketorolac Tromethamine 30 MG/ML VIAL IVP SCH (22:15)
[2019-10-22] MEDS: Sodium Chloride 0.9% 1,000 ML IV SCH (02:55)
[2019-10-22 04:38] LABS: #Eosinphils 0.3 thou/uL (0.0-0.7); #Lymphocytes 1.3 thou/uL (1.20-3.40); #Monocytes 0.7 thou/uL (0.11-0.59); #Neutrophils 4.3 thou/uL (1.40-6.50); %Basophils 0.1 % (0.0-1.0); %Eosinophils 3.9 % (0.0-10.0); %Lymphocytes 20.1 % (21.0-51.0); %Monocytes 10.9 % (0.0-10.0); Hemoglobin 11.8 g/dL (12.0-16.0); Mean Corpuscular HGB CONC 31.4 g/dL (32.0-36.0); Mean Corpuscular Hemoglobin 27.8 pg (27.0-31.0); Mean Corpuscular Volume 88.6 fL (78.0-98.0); Mean Platelet Volume 8.1 fL (7.4-10.4); Platelet Count 237 thou/uL (130-400); RBC Distribution Width 14.4 % (11.5-14.5); Red Blood Cell (RBC) Count 4.23 mill/uL (4.20-5.40); White Blood Cell (WBC) Count 6.6 thou/uL (4.8-10.8)
[2019-10-22 04:59] LABS: Anion Gap 16 mmol/L (10-20); BUN (Urea Nitrogen) 13 mg/dL (9.8-20.1); Calc. Creatinine Clearance 138 mL/min (70-130); Calcium 7.8 mg/dL (7.8-10.44); Carbon Dioxide 20 mmol/L (23-31); Chloride 109 mmol/L (98-107); Estimated GFR-MDRD Greater than 90; Glucose 101 mg/dL (80-115); Magnesium 1.8 mg/dL (1.6-2.6); Potassium 3.5 mmol/L (3.5-5.1); Sodium 141 mmol/L (136-145)
[2019-10-22] MEDS: Vancomycin HCl 25 MG/ML Oral PO SCH ×2 (06:22→13:21)
[2019-10-22] MEDS: Mometasone/Formoterol 120 PUFF INHALER INH SCH (06:53)
[2019-10-22] MEDS ORDERED: predniSONE 20 MG TAB PO SCH (08:00)
[2019-10-22] MEDS ORDERED: Ferrous Sulfate 325 MG TAB PO SCH (08:00)
[2019-10-22] MEDS ORDERED: Enoxaparin Sodium 40 MG/0.4 ML SYRINGE SC SCH (09:00)
[2019-10-22] MEDS ORDERED: Amlodipine 10 MG TAB PO SCH (09:00)
[2019-10-22] MEDS: Gabapentin 300 MG CAP PO SCH (09:25)
[2019-10-22 12:05] VITALS: BP 168/97; TEMP 98
--- NOTE | 2019-10-22 13:36 | DIS ---
DATE OF ADMISSION: 10/21/2019 DATE OF DISCHARGE: 10/22/2019 DISCHARGE DIAGNOSES: 1. Clostridium difficile colitis. 2. Syncope secondary to vasovagal response and dehydration. 3. Diabetes mellitus, type 2. 4. Hypertension, stable. 5. Rheumatoid arthritis. CONSULTATIONS: None. PERTINENT LABORATORY AND X-RAY FINDINGS: Basic metabolic profile within normal limits. TSH 2.56. Magnesium level 1.8. CBC showed a white blood cell count of 6.6, hemoglobin 12, hematocrit 37, and platelet count 237. Campylobacter antigen negative on 10/21/2019. C difficile antigen and toxin positive on 10/21/2019. Stool lactoferrin positive on 10/21/2019. CT angiogram of the chest dated 10/21/2019 showed no evidence for pulmonary embolus. Carotid Doppler study dated 10/21/2019, showed no hemodynamically significant stenosis. 2D transthoracic echocardiogram dated 10/21/2019, showed ejection fraction of 60% to 65%, diastolic dysfunction. HOSPITAL COURSE: The patient was observed on the telemetry unit after initially presenting status post syncopal episode. The patient underwent extensive evaluation including metabolic and radiographic studies showing essentially negative findings. The patient had complained of persistent diarrhea, undergoing stool studies confirming the presence of Clostridium difficile. The patient was initiated on vancomycin 125 mg q.6 hours and given IV fluid hydration. The patient clinically improved in less than 24 hours and symptomatically improved as well. Likely the patient's presentation due to dehydration and vasovagal response due to C difficile diarrhea. Overall, the patient did remain clinically stable during the hospital course, tolerating regular oral intake with stable vital signs. I have examined the patient at the time of discharge and discussed followup instructions. The patient verbalized understanding and in agreement and ready for discharge on 10/22/2019. DISCHARGE MEDICATIONS: 1. Proventil HFA 2 puffs inhaled q.8 hours p.r.n. 2. Amitiza 24 mcg p.o. b.i.d. 3. Cardizem CD 240 mg p.o. daily. 4. Doxepin 10 mg p.o. at bedtime. 5. Lasix 20 mg p.o. q.a.m. 6. Gabapentin 300 mg p.o. t.i.d. 7. Corona 7.5/325 mg one tab p.o. q.6 hours p.r.n. pain. 8. NPH insulin 25 units subcutaneously at bedtime. 9. DuoNeb 3 mL nebulized q.4 hours p.r.n. 10. Iron 325 mg p.o. daily. 11. Lisinopril/hydrochlorothiazide 20/25 mg 1 tablet p.o. daily. 12. Prednisone 20 mg p.o. q.a.m. 13. Dulera 200/5 mcg 2 puffs inhaled b.i.d. 14. Vancomycin 125 mg p.o. q.6 hours x10 days. FOLLOWUP: The patient may follow up with her primary care provider, Dr. Velia Chu, within 7 days of discharge. CONDITION ON DISCHARGE: Stable. ACTIVITY: Ad-alison. DIET: ADA and heart healthy. CODE STATUS: Full. DISPOSITION: To home on 10/22/2019. Job ID: [id number]
== END 2019-10-22 13:39 | disposition home or self-care (01) ==
LOC: ERS 07:52 → 2SW 08:57
PROVIDERS: ADMIT Internal Medicine; ATTEND Internal Medicine
DX: A04.72 Enterocolitis due to Clostridium difficile, not specified as recurrent (principal); E86.0 Dehydration; I11.0 Hypertensive heart disease with heart failure; I50.30 Unspecified diastolic (congestive) heart failure; E11.9 Type 2 diabetes mellitus without complications; J44.9 Chronic obstructive pulmonary disease, unspecified; G47.33 Obstructive sleep apnea (adult) (pediatric); K21.9 Gastro-esophageal reflux disease without esophagitis; M06.9 Rheumatoid arthritis, unspecified; Z79.899 Other long term (current) drug therapy; Z88.8 Allergy status to other drugs, medicaments and biological substances
CPT/HCPCS: 80048; 83630; 83735; 84443; 85025; 87324; 87328; 87329; 87427 ×2; 87449 ×2; 87493; 93005; 93306; 93880; 94640 ×2; 96361 ×3; 96372; 96374; 96375; 97139 ×2; 99285; G0378 ×3; 36415; J1200; J1630; J1650; J1885; J7512

== ENCOUNTER 2019-11-21 07:59 | Outpatient (CLI) | payer MEDICARE ==
--- NOTE | 2019-11-21 12:22 | RAD ---
PA AND LATERAL CHEST: Date: 11/21/2019 HISTORY: Shortness of breath. FINDINGS: Heart size is borderline enlarged. Elevation to the left hemidiaphragm is again noted. Lungs are preston r of any infiltrates. IMPRESSION: Borderline heart size. Prominent pulmonary hilar regions, appear to be on the basis of somewhat promi nent pulmonary arteries. No acute process identified. POS: [facility]
[2019-11-21 13:29] LABS: Band 8 % (5-11); Eosinophils 2 % (0-10); Hemoglobin 11.3 g/dL (12.0-16.0); Hypochromia SLIGHT = 6-15 cells (100X) (0-5/hpf); Lymphocytes 10 % (21-51); MDiff Complete? YES; Mean Corpuscular HGB CONC 31.8 g/dL (32.0-36.0); Mean Corpuscular Hemoglobin 27.8 pg (27.0-31.0); Mean Corpuscular Volume 87.4 fL (78.0-98.0); Mean Platelet Volume 8.8 fL (7.4-10.4); Monocytes 8 % (0-10); Neutrophil 66 % (42-75); Platelet Count 280 thou/uL (130-400); Platelet Morphology Comment Appears Adequate; Polychromasia SLIGHT = 2-3 cells (100X) (0-2/hpf); RBC Distribution Width 14.9 % (11.5-14.5); Reactive Lymphocytes 6 % (0-10); Red Blood Cell (RBC) Count 4.08 mill/uL (4.20-5.40); White Blood Cell (WBC) Count 10.7 thou/uL (4.8-10.8)
[2019-11-21 13:35] LABS: Anion Gap 15 mmol/L (10-20); BUN (Urea Nitrogen) 16 mg/dL (9.8-20.1); Calc. Creatinine Clearance 0 mL/min (70-130); Calcium 9.1 mg/dL (7.8-10.44); Carbon Dioxide 25 mmol/L (23-31); Chloride 101 mmol/L (98-107); Estimated GFR-MDRD Greater than 90; Glucose 125 mg/dL (80-115); Sodium 137 mmol/L (136-145)
== END 2019-11-21 08:00 | disposition home or self-care (01) ==
LOC: LABBT 07:59
PROVIDERS: ATTEND Surgery
DX: Z01.818 Encounter for other preprocedural examination (principal); K43.9 Ventral hernia without obstruction or gangrene
CPT/HCPCS: 71046; 80048; 85025

== ENCOUNTER 2019-11-24 05:34 | Day surgery (SDC) | payer MEDICARE ==
[2019-11-21 10:31] VITALS: BMI 45.7
[2019-11-24] MEDS ORDERED: Midazolam HCl 2 mg/2 ml Vial ONE (06:49)
[2019-11-24] MEDS ORDERED: Fentanyl 100 MCG/2 ML VIAL ONE ×3 (06:49→09:38)
[2019-11-24] MEDS ORDERED: Lidocaine 1% w/Epinephrine 1:100K 20 ML VIAL ONE (07:04)
[2019-11-24] MEDS ORDERED: Bupivacaine PF 0.5% 30 ML VIAL ONE (07:04)
[2019-11-24] MEDS ORDERED: SUGAMMADEX SODIUM 500 MG/5 ML VIAL ONE (08:54)
[2019-11-24] MEDS ORDERED: HYDROmorphone 0.5 MG/0.5 ML SYRINGE ONE (09:46)
[2019-11-24] MEDS ORDERED: Ketorolac Tromethamine 30 MG/ML VIAL ONE (10:41)
[2019-11-24] MEDS ORDERED: Lidocaine 1% PF 5 ML VIAL ONE (10:44)
[2019-11-24] MEDS ORDERED: Rocuronium Bromide 10 MG/ML (10ML VIAL) ONE (10:44)
[2019-11-24] MEDS ORDERED: Ondansetron PF 4 MG/2 ML Vial ONE (10:44)
[2019-11-24] MEDS ORDERED: PROPOFOL 200 MG/20 ML VIAL ONE (10:44)
[2019-11-24] MEDS ORDERED: Glycopyrrolate 0.2 MG/ML 5 ML SYRINGE ONE (10:44)
[2019-11-24] MEDS ORDERED: Labetalol HCl 100 MG/20 ML VIAL ONE (10:44)
[2019-11-24] MEDS ORDERED: Morphine 4 MG/ML VIAL ONE (14:18)
--- NOTE | 2019-11-25 10:46 | OP ---
DATE OF PROCEDURE: 11/24/2019 PREOPERATIVE DIAGNOSIS: Ventral hernia. POSTOPERATIVE DIAGNOSIS: Ventral hernia. PROCEDURE PERFORMED: Da Chad laparoscopic ventral hernia repair with mesh, Ventralex ST 8 cm. ANESTHESIA: General. ESTIMATED BLOOD LOSS: Minimal. COMPLICATIONS: None. SPECIMEN: None. FINDINGS: Ventral hernia. DESCRIPTION OF PROCEDURE: The patient was taken to the operating room and laid supine on the operating room table. After general anesthetic was obtained, a Hurley was placed. The abdomen was prepped and draped in a sterile fashion. Left subcostal 5-mm Optiview trocar was placed in usual fashion and high-flow pneumoperitoneum was obtained. Left and right subcostal 8-mm robot assist ports were placed. All ports were docked to the robot. The peritoneum was taken down exposing the ventral defect. The posterior fascia was cleared off around the defect. The 0 V-Loc suture was used to suture the defect shut primarily. An [address] mesh was brought into the sterile field. The exposed mesh side was placed up against the posterior fascia, nonadherent covered side was left down against the abdominal contents. This was held in place using the needle from the V-Loc. 2-0 V-Loc was used to sew the mesh to the posterior fascia circumferentially. All needles were removed from the abdomen and accounted for. All port sites were infiltrated using local anesthetic. All ports were removed under camera visualization. Pneumoperitoneum was let down. The incisions have been closed using 4-0 Monocryl and Dermabond. The patient was en route to Recovery in stable condition. All instrument counts, needle counts, and lap counts were correct. Job ID: [id number]
== END 2019-11-24 17:15 | disposition home or self-care (01) ==
LOC: SDC 05:34
PROVIDERS: ATTEND Surgery
PROC: 0WUF4JZ Supplement Abdominal Wall with Synthetic Substitute, Percutaneous Endoscopic Approach (ICD-10-PCS; principal; 2019-11-24)
DX: K43.9 Ventral hernia without obstruction or gangrene (principal); J44.9 Chronic obstructive pulmonary disease, unspecified; I11.9 Hypertensive heart disease without heart failure; G89.29 Other chronic pain; M06.9 Rheumatoid arthritis, unspecified; Z79.4 Long term (current) use of insulin; Z79.52 Long term (current) use of systemic steroids; Z79.899 Other long term (current) drug therapy; Z88.8 Allergy status to other drugs, medicaments and biological substances
CPT/HCPCS: 49652; 82962; C1781; 36416; J0690; J1170; J1885; J2001; J2250; J2270; J2405; J2704; J3010; S0020

== ENCOUNTER 2020-06-05 09:21 | Outpatient (CLI) | payer MEDICARE ==
--- NOTE | 2020-06-05 09:46 | RAD ---
EXAM: Chest 2 views: HISTORY: Dyspnea COMPARISON: 11/21/2019 FINDINGS: There is a normal-sized cardiomediastinal silhouette. There is stable elevation the left hemidiaphra gm. There is no evidence of consolidation, mass, or pleural effusion. There appears be dislocation of the left shoulder joint which is likely chronic. IMPRESSION: 1. No evidence of acute cardiopulmonary disease 2. Chronic left shoulder dislocation
== END 2020-06-05 09:22 | disposition home or self-care (01) ==
LOC: BICRAD 09:21
PROVIDERS: ATTEND Internal Medicine Critical Care Medicine
DX: R06.00 Dyspnea, unspecified (principal)
CPT/HCPCS: 71046

== ENCOUNTER 2020-08-08 13:47 | Inpatient (IN) | payer MEDICARE ==
[~2020-08-08 13:47] MED LIST changes: -Iopamidol 370 76% 100 ML VIAL ONE; +Iopamidol-370 76% 500 ML 1 ML ONE
[2020-08-08 14:32] LABS: #Lymphocytes 1.8 thou/uL (1.20-3.40); #Monocytes 0.5 thou/uL (0.11-0.59); #Neutrophils 10.3 thou/uL (1.40-6.50); %Basophils 0.3 % (0.0-1.0); %Eosinophils 0.3 % (0.0-10.0); %Lymphocytes 14.1 % (21.0-51.0); %Monocytes 3.9 % (0.0-10.0); %Neutrophils 81.4 % (42.0-75.0); Hemoglobin 9.6 g/dL (12.0-16.0); Mean Corpuscular HGB CONC 30.3 g/dL (32.0-36.0); Mean Corpuscular Volume 79.2 fL (78.0-98.0); Mean Platelet Volume 9.3 fL (7.4-10.4); Platelet Count 302 thou/uL (130-400); RBC Distribution Width 19.6 % (11.5-14.5); White Blood Cell (WBC) Count 12.7 thou/uL (4.8-10.8)
[2020-08-08 14:57] LABS: ALT (SGPT) 32 U/L (8-55); AST (SGOT) 33 U/L (5-34); Albumin 3.2 g/dL (3.4-4.8); Alkaline Phosphatase 62 U/L (40-110); Anion Gap 16 mmol/L (10-20); BUN (Urea Nitrogen) 11 mg/dL (9.8-20.1); Bilirubin, Total 0.4 mg/dL (0.2-1.2); Calc. Creatinine Clearance 0 mL/min (70-130); Calcium 8.4 mg/dL (7.8-10.44); Carbon Dioxide 25 mmol/L (23-31); Chloride 103 mmol/L (98-107); Estimated GFR-MDRD Greater than 90; Globulin 2.1 g/dL (2.4-3.5); Glucose 166 mg/dL (80-115); Protein, Total 5.3 g/dL (6.0-8.3); Sodium 140 mmol/L (136-145)
--- NOTE | 2020-08-08 15:04 | RAD ---
PORTABLE CHEST 1 VIEW: Date: 08/08/2020 Time: 1424 hours HISTORY: COVID-positive dyspnea. FINDINGS/IMPRESSION: Comparison made with exam of 06/05/2020. The heart size is stable. A large hiatal hernia is again seen. There are bibasilar infiltrates. No pn eumothoraces or large effusions are seen. POS: AH
[2020-08-08 15:18] LABS: CKMB 0.6 ng/mL (0-6.6)
[2020-08-08] MEDS ORDERED: Acetaminophen 500 MG TAB ONE (15:32)
[2020-08-08] MEDS ORDERED: Acetaminophen 650 MG Suppository PR PRN (17:59)
[2020-08-08 18:13] LABS: Actual Bicarbonate (HCO3a) 22.2 mEq/L (22-28); Analyzer IN Cardio ER; Base Excess (BEa) -3.5 mEq/L (-2.0 to +3.0); CO2 Tension 42.6 mmHg (35.0-45.0); Calcium, Ionized (arterial) 1.14 mmol/L (1.12-1.30); Carboxyhemoglobin (COHb) 0.6 gm% (0.0-3.0); O2 Tension (PaO2), arterial 62.8 mmHg (> 80.0); Potassium - ABG Lab 4.12 mmol/L (3.70-5.30); pH, Arterial 7.33 (7.35-7.45)
--- NOTE | 2020-08-08 18:14 | PDOC.HHP ---
Hospitalist HPI - History of Present Illness History of Present Illness: ADMISSION DATE: 08/08/2020 TIME OF ASSESSMENT: 1700 PRIMARY CARE PHYSICIAN: CHIEF COMPLAINT: Abdominal pain HPI: Patient presents to the emergency department after being prompted by her physical therapist due to Covid testing being positive. Patient decided to get tested due to her daughter being found to be Covid positive recently. She sta jack she is felt generally unwell since yesterday and today developed diarrhea. She had 3 loose stools and states that she had a little bit of incontinence with watery diarrhea when she would cough or move which is not typical for her. Has not been on any antibiotics recently. Denies noting any blood in her stools or black stools. Reports feeling nauseated but denies any vomiting. She has asso ciated abdominal discomfort that is diffuse. Complains of chronic abdominal pain since undergoing hernia repair done by Dr. Alamo in December 2019. She had a laparoscopic ventral hernia repair with mesh placement. Since then she reports having abdominal soreness but today the discomfort is worse than normal. She suffers from chronic constipation which she states is usually followed by a few episodes of very soft stools and then feels like she gets cleared out. This is a first time she has experienced such watery stools. At present she denies any chest pain palpitations or shortness of breath. Patient states she is tachypneic at baseline and cannot tell if she is worse from normal. She has a history of COPD and is on home O2 at 2 L by nasal cannula. States she was noted at home to be hypoxic with sats of 80%. Denies any fevers chills or sweats at home. She does feel generally weak. Reports diffuse joint pain associated with rheumatoid arthritis which is unchanged from baseline. All other review of systems are negative. ED COURSE: At initial presentation the patient was tachycardic with a heart of 139, BP 155/109, tachypneic with a respirate of 38 and sat 99% on 4 L of oxygen by nasal cannula. She was febrile with a temp of 100.1. With EMS she received albuterol, 300 mL of IV fluids, Solu-Medrol, and Zofran. In the emergency department she had laboratory studies done that showed white cell count of 12.7, hemoglobin 9.6, hematocrit 31.6, platelets 302, neutrophils 81.4%. BUN 11, creatinine 0.72, GFR greater than 90. LFTs unremarkable. Troponin indeterminate at 0.029. BNP less than 10. Chest x-ray done showed a large hiatal hernia and bibasilar infiltrates. She had an EKG done in the emergency department that showed sinus tachycardia with a heart rate of 124. No ST changes or T wave abnormalities. In the emergency department the only medication she received was 1 g of Tylenol extra strength for her fever and 500 mLs of normal saline. Dr. Pak reports the patient is stable and requesting admission for hypoxia associated with Covid infection. Her sats reportedly improved on 3 L of O2 by nasal cannula. Stated patient was not in any respiratory distress or failure. PHYSICAL EXAM: GENERAL: On physical exam the patient appears to be tachypneic with shallow breathing, further increased work of breathing with speaking. Complaining of a bdominal discomfort. HEENT: Normocephalic atraumatic pupils equal round reactive to light extraocular movements intact sclera without icterus. Oral mucosa dry. Neck is supple without lymphadenopathy. LUNGS: Diffuse breath sounds at the bilateral bases. No wheezing or crackles. Patient appears tachypneic. CARDIAC: Normal heart sounds, sinus tachycardia. ABDOMEN: Soft and obese with diffuse tenderness to mild palpation. Voluntary guarding. No rigidity or distention. EXTREMITIES: No lower extremity swelling or edema. NEURO: Patient is alert and oriented x3 no neuro deficits on exam. Strength intact in all extremities. Affect normal. SKIN: Warm and dry. PAST MEDICAL HISTORY: 1. COPD 2. Diastolic heart failure 3. Hypertension 4. Obstructive sleep apnea 5. Rheumatoid arthritis 6. Pulmonary hypertension 7. GERD 8. Hyponatremia 9. Obesity PAST SURGICAL HISTORY: 1. Hysterectomy 2. Ventral hernia repair by Dr. Hurley 12/2019. SOCIAL HISTORY: Denies any alcohol consumption or tobacco use. She lives at home with her daughter. Walks occasionally with her walker but mainly uses her wheelchair to get around. She is disabled due to her rheumatoid arthritis. FAMILY HISTORY: Noncontributory. ALLERGIES: Chlorpromazine, methotrexate, Plaquenil CURRENT MEDICATIONS: Prednisone 20 mg p.o. daily [place] as needed Ibuprofen 800 mg p.o. 3 times daily Albuterol inhaler Albuterol neb Doxepin 10 mg, 3 tablets p.o. at bedtime Gabapentin 300 p.o. mg 3 times daily Lisinopril/HCTZ 20/25 mg p.o. daily Montelukast 10 mg p.o. daily Diltiazem ER 120 mg p.o. daily Metoclopramide 10 mg p.o. daily Amitiza 24 mcg p.o. daily Hospitalist Results - Labs Result Diagrams: 08/12/20 03:34 08/12/20 03:34 Lab results: WBC 12.7 thou/uL (4.8-10.8) H 08/08/20 14:22 Hgb 9.6 g/dL (12.0-16.0) L 08/08/20 14:22 Hct 31.6 % (36.0-47.0) L 08/08/20 14:22 MCV 79.2 fL (78.0-98.0) 08/08/20 14:22 Plt Count 302 thou/uL (130-400) 08/08/20 14:22 Neutrophils % 81.4 % (42.0-75.0) H 08/08/20 14:22 Sodium 140 mmol/L (136-145) 08/08/20 14:22 Potassium 4.0 mmol/L (3.5-5.1) 08/08/20 14:22 Chloride 103 mmol/L (98-107) 08/08/20 14:22 Carbon Dioxide 25 mmol/L (23-31) 08/08/20 14:22 BUN 11 mg/dL (9.8-20.1) 08/08/20 14:22 Creatinine 0.72 mg/dL (0.6-1.1) 08/08/20 14:22 Glucose 166 mg/dL (80-115) H 08/08/20 14:22 Calcium 8.4 mg/dL (7.8-10.44) 08/08/20 14:22 Total Bilirubin 0.4 mg/dL (0.2-1.2) 08/08/20 14:22 AST 33 U/L (5-34) 08/08/20 14:22 ALT 32 U/L (8-55) 08/08/20 14:22 Alkaline Phosphatase 62 U/L (40-110) 08/08/20 14:22 CK-MB (CK-2) 0.6 ng/mL (0-6.6) 08/08/20 14:22 Troponin I 0.029 ng/mL (< 0.028) H 08/08/20 14:22 B-Natriuretic Peptide Less than 10.0 pg/mL (0-100) 08/08/20 14:21 Serum Total Protein 5.3 g/dL (6.0-8.3) L 08/08/20 14:22 Albumin 3.2 g/dL (3.4-4.8) L 08/08/20 14:22 Hospitalist H&P A/P - Problem (1) Sepsis Code(s): A41.9 - SEPSIS, UNSPECIFIED ORGANISM Status: Suspected Assessment and Plan: Likely secondary to COVID pneumonia. IV antibiotics (Vanc and Cefepime) IV fluids ordered. Consult Dr. Hernandez. (2) Hypoxia Code(s): R09.02 - HYPOXEMIA Status: Acute Assessment and Plan: Monitor O2 sats. ABG ordered. CTA to rule out PE. (3) COVID-19 virus infection Code(s): U07.1 - COVID-19 Status: Acute Assessment and Plan: Continue isolation precautions. Consult Dr. Hernandez. Check Ferritin, LDH and CRP. (4) Tachycardia Code(s): R00.0 - TACHYCARDIA, UNSPECIFIED Status: Acute Assessment and Plan: Cardiac monitoring. IV fluids and IV antibiotics ordered. Possibly secondary to infection vs. possible PE. CTA ordered. (5) COPD (chronic obstructive pulmonary disease) Status: Chronic Qualifiers: COPD type: chronic bronchitis Assessment and Plan: Resume home inhalers. Hold nebs for now, no wheezing and is COVID + Continue steroids. (6) Abdominal pain Code(s): R10.9 - UNSPECIFIED ABDOMINAL PAIN Status: Acute Assessment and Plan: CT A/P ordered. Repeat LFTs with morning labs. Lactic acid added on. (7) Diarrhea Code(s): R19.7 - DIARRHEA, UNSPECIFIED Status: Acute Assessment and Plan: Worse form baseline and watery. stool studies ordered including c. diff. Awaiting CT a/p imaging. (8) Diastolic heart failure Code(s): I50.30 - UNSPECIFIED DIASTOLIC (CONGESTIVE) HEART FAILURE Status: Chronic Assessment and Plan: Gentle hydration, monitor for signs of fluid overload. (9) Diabetes type 2, controlled Code(s): E11.9 - TYPE 2 DIABETES MELLITUS WITHOUT COMPLICATIONS Status: Chronic Qualifiers: Diabetes mellitus retirement insulin use: without retirement use Assessment and Plan: Monitor glucose. Cover with ISS. NPO given abdominal tenderness/pain while awaiting CT imaging. (10) Hypertension Code(s): I10 - ESSENTIAL (PRIMARY) HYPERTENSION Status: Chronic Qualifiers: Hypertension type: essential hypertension Qualified Code(s): I10 - Essential (primary) hypertension Assessment and Plan: Monitor BP and resume home medications as appropriate once verified. (11) GERD (gastroesophageal reflux disease) Code(s): K21.9 - GASTRO-ESOPHAGEAL REFLUX DISEASE WITHOUT ESOPHAGITIS Status: Chronic Qualifiers: Esophagitis presence: esophagitis presence not specified Qualified Code(s): K21.9 - Gastro-esophageal reflux disease without esophagitis Assessment and Plan: Pantoprazole 20 mg PO BID. (12) Hiatal hernia Code(s): K44.9 - DIAPHRAGMATIC HERNIA WITHOUT OBSTRUCTION OR GANGRENE Status: Chronic (13) Rheumatoid arthritis Code(s): M06.9 - RHEUMATOID ARTHRITIS, UNSPECIFIED Status: Chronic Qualifiers: Rheumatoid arthritis location: unspecified site Assessment and Plan: Resume home medications once verified. (14) Morbid obesity with BMI of 45.0-49.9, adult Code(s): E66.01 - MORBID (SEVERE) OBESITY DUE TO EXCESS CALORIES; Z68.42 - BODY MASS INDEX [BMI] 45.0-49.9, ADULT Status: Chronic - Plan Plan: Surrogate decision maker is her daughter: Cinthia Ronquillo.
[2020-08-08 18:15] LABS: Puncture Site RR
--- NOTE | 2020-08-08 18:47 | CT ---
CT ANGIOGRAM THORAX WITH IV CONTRAST AND 3-D RECONSTRUCTIONS CLINICAL INDICATION: Dyspnea, low oxygen saturations. Covid positive. Increasing shortness of breath. COMPARISON: 10/21/2019 FINDINGS: Pulmonary arteries: There is suboptimal evaluation of the subsegmental pulmonary arteries in the uppe r lobes, but there are otherwise no filling defects in the pulmonary arteries to suggest a pulmonary embolus. Aorta: Vascular calcifications are seen in the thoracic aorta, but the thoracic aorta is normal in ca liber without evidence of an aortic dissection. Lungs: There are interstitial and patchy groundglass densities seen throughout the lungs bilaterally suggesting viral pneumonitis such as Covid 19. Calcified granulomata are seen in the left lower lobe. No pleural effusion is identified. As noted on prior examination, there is a large diaphragmatic defect, and the entire stomach as well as mesenteric fat and a portion of the body of the pancreas extends into this hernia defect occupying approximately one half of the left hemithorax. Again this is seen on prior study as well as a study in 2019. Mediastinum: Calcified mediastinal and left hilar lymph nodes are present. The heart is mildly enlarg ed with trace pericardial effusion present. Mildly prominent 1.1 cm subcarinal lymph node is present likely reactive in origin. Osseous structures: Multilevel degenerative changes in the spine. Remote right-sided rib fractures ar e visualized. Severe bilateral glenohumeral osteoarthropathy is partially seen. Chest wall: No abnormality visualized. Upper abdomen: Diminished attenuation of the liver suggesting fatty infiltration. Stable subcentimete r hypodense lesion is seen in the anterior aspect left hepatic lobe. Millimeter the abdomen described on CT abdomen dictated as a separate report. IMPRESSION: 1. Suboptimal evaluation of the subsegmental pulmonary arteries bilateral upper lobes, but there is o therwise no definite filling defect seen in the pulmonary arteries to suggest pulmonary embolus. 2. Evidence of viral pneumonitis (Covid 19). 3. Large diaphragmatic defect left lung base with the entire stomach and large amount of mesenteric f at as well as the body the pancreas herniated into the left chest. This is a stable finding. The diaphragmatic defect measures approximately 4.8 cm. 4. Mild cardiomegaly. 5. Fatty infiltration liver with stable subcentimeter hypodense lesion medial segment left hepatic lo be.
[2020-08-08] MEDS ORDERED: Dextrose 5% in Water 1,000 ML IV PRN (18:49)
[2020-08-08] MEDS ORDERED: Dextrose 50% Abboject 50 ML SYRINGE SLOW IVP PRN (18:49)
[2020-08-08] MEDS ORDERED: HumaLOG 300 UNITS/3 ML VIAL SC PRN (18:49)
[2020-08-08 19:03] LABS: Lactic Acid 1.3 mmol/L (0.5-2.2)
[2020-08-08 19:11] LABS: Magnesium 1.9 mg/dL (1.6-2.6)
[2020-08-08 19:19] LABS: Troponin I 0.033 ng/mL (< 0.028)
--- NOTE | 2020-08-08 19:26 | CT ---
CT OF THE ABDOMEN AND PELVIS: 08/08/20 COMPARISON: 09/02/19. HISTORY: Pain. TECHNIQUE: Axial Ct imaging at 5 mm intervals from the lung bases through the pubic symphysis with IV contrast. Coronal and sagittal reformatted imaging obtained. FINDINGS: There is a stable large incompletely visualized hiatal hernia with the majority of the stomach within the lower right hemithorax. There is ground glass opacity within the inferior right middle lobe and patchy areas of parenchymal opacity within the right lower lobe, new when compared to the prior exam. There is no free intraperitoneal air. There is a small hypodense lesion within the anterior aspect of the liver on axial image 19 measuring 6 mm, stable and too small to characterize. The hepatic parenchyma appears somewhat hypodense sugges ting a degree of hepatic steatosis. The spleen, gallbladder, pancreas, and adrenal glands appear jessica sly unremarkable. No acute renal abnormality is seen on either side. Uterus appears surgically absent . There is prominent wall thickening and associated pericolonic fat stranding involving the colon from the level of the distal transverse colon through the proximal descending colon, most prominent in th e region of the splenic flexure. No evidence for bowel obstruction is seen. The appendix appears unremarkable. The vascular structures of the abdomen/pelvis demonstrate no acute findings. No abdominal or pelvic l ymphadenopathy is noted. The intra and extrahepatic portal vein, the superior mesenteric vein, and the splenic vein are patent . The superior mesenteric artery, the inferior mesenteric artery, and the celiac access appear patent. Review of the osseous structures demonstrates no worrisome lytic or blastic bone lesions. Lower lumba r spine facet hypertrophy is present. IMPRESSION: 1. Prominent area of colonic wall thickening and adjacent inflammatory fat stranding involving the distal transverse colon, the splenic flexure and the proximal descending colon consistent with a nonspecific colitis. This could be inflammatory/infectious or ischemic in nature. Follow-up direct vi sualization following treatment advised to exclude an underlying mass lesion. 2. Incompletely evaluated pulmonary parenchymal opacity in the right lung base suspicious for a nonspecific infectious pneumonitis. This could reflect COVID 19. POS: KD
[2020-08-08] MEDS ORDERED: HYDROcodone/Acetaminophen 7.5/325 mg Tablet PO SCH ×2 (23:00→23:30)
[2020-08-08] MEDS: Famotidine/PF 20 mg/2ml Vial SLOW IVP SCH (23:15)
[2020-08-08] MEDS: Gabapentin 300 MG CAP PO SCH (23:15)
[2020-08-08] MEDS: methylPREDNISolone Sod Succ 40 MG VIAL IVP SCH (23:15)
[2020-08-08] MEDS: Cefepime 1 GM in Sodium Chloride 0.9% 100 ML IVPB SCH (23:21)
[2020-08-08] MEDS: Sodium Chloride 0.9% 1,000 ML IV SCH (23:21)
[2020-08-08] MEDS: Doxepin HCl 10 MG CAP PO SCH (23:47)
[2020-08-08] MEDS ORDERED: Ondansetron PF 4 MG/2 ML Vial IVP PRN (23:50)
[2020-08-09 01:05] VITALS: BMI 43.9
[2020-08-09] MEDS: Morphine 2 MG/ML VIAL SLOW IVP PRN ×2 (01:41→16:34)
[2020-08-09] MEDS ORDERED: Amlodipine 5 MG TAB PO SCH (04:00)
[2020-08-09 04:10] LABS: Band 34 % (5-11); Hemoglobin 9.7 g/dL (12.0-16.0); Hypochromia SLIGHT = 6-15 cells (100X) (0-5/hpf); Lymphocytes 3 % (21-51); MDiff Complete? YES; Mean Corpuscular HGB CONC 30.6 g/dL (32.0-36.0); Mean Corpuscular Hemoglobin 24.6 pg (27.0-31.0); Mean Corpuscular Volume 80.5 fL (78.0-98.0); Mean Platelet Volume 9.5 fL (7.4-10.4); Metamyelocyte 1 % (0-0); Monocytes 3 % (0-10); Neutrophil 59 % (42-75); Platelet Count 255 thou/uL (130-400); Platelet Morphology Comment Appears Adequate; RBC Distribution Width 19.4 % (11.5-14.5); Red Blood Cell (RBC) Count 3.92 mill/uL (4.20-5.40); White Blood Cell (WBC) Count 13.7 thou/uL (4.8-10.8)
[2020-08-09 04:17] LABS: Anion Gap 17 mmol/L (10-20); BUN (Urea Nitrogen) 14 mg/dL (9.8-20.1); Calc. Creatinine Clearance 116 mL/min (70-130); Calcium 8.3 mg/dL (7.8-10.44); Carbon Dioxide 22 mmol/L (23-31); Chloride 105 mmol/L (98-107); Estimated GFR-MDRD 89; Glucose 288 mg/dL (80-115); Iron 9 ug/dL (50-170); Iron Binding Capacity, Total 284 mcg/dL (265-497); Potassium 4.2 mmol/L (3.5-5.1); Sodium 140 mmol/L (136-145)
[2020-08-09] MEDS ORDERED: Morphine 2 MG/ML VIAL SLOW IVP SCH (05:00)
[2020-08-09 05:02] LABS: Bilirubin Negative (Negative); Blood, Urine Trace (Negative); Glucose, Urine (Dipstick) 500 mg/dL (Negative); Ketone, Urine 15 mg/dL (Negative); Leukocyte Negative (Negative); Nitrite Negative (Negative); Protein, Urine (Dipstick) Trace mg/dL (Neg-Trace); Urobilinogen 0.2 mg/dL (Less than 2)
[2020-08-09 05:04] LABS: Clarity Clear (Clear)
[2020-08-09 05:10] LABS: RBC/HPF None Seen HPF (0-3); Urine Culture Reflex No No
[2020-08-09 05:11] LABS: Bacteria/HPF Rare-Few HPF (None Seen); Squamous Epithelial 0-3 HPF (0-3)
[2020-08-09] MEDS: methylPREDNISolone Sod Succ 40 MG VIAL IVP SCH ×2 (05:20→15:02)
[2020-08-09] MEDS: Sodium Chloride 0.9% 1,000 ML IV SCH ×2 (05:22→15:02)
[2020-08-09] MEDS: HumaLOG 300 UNITS/3 ML VIAL SC PRN (05:47)
[2020-08-09] MEDS ORDERED: FLU VACC QS2020-21(6MOS UP)/PF 60 MCG/0.5 ML SYRINGE IM ONE (09:00)
[2020-08-09] MEDS: Cefepime 1 GM in Sodium Chloride 0.9% 100 ML IVPB SCH ×2 (10:31→21:54)
[2020-08-09] MEDS: Famotidine/PF 20 mg/2ml Vial SLOW IVP SCH ×2 (10:33→21:57)
[2020-08-09] MEDS: Gabapentin 300 MG CAP PO SCH ×3 (10:33→21:55)
[2020-08-09] MEDS: Vancomycin 1.5 GRAM/300 ML BAG 1.5 GM in Premix Bag 1 BAG IVPB SCH (10:34)
[2020-08-09 13:22] LABS: Actual Bicarbonate (HCO3a) 25.5 mEq/L (22-28); Base Excess (BEa) -0.3 mEq/L (-2.0 to +3.0); Calcium, Ionized (arterial) 1.14 mmol/L (1.12-1.30); Carboxyhemoglobin (COHb) 0.7 gm% (0.0-3.0); Hemoglobin (Hb) 10.4 g/dL (12.0-16.0); O2 Tension (PaO2), arterial 67.1 mmHg (> 80.0); Potassium - ABG Lab 4.13 mmol/L (3.70-5.30); pH, Arterial 7.35 (7.35-7.45)
[2020-08-09 13:26] LABS: Puncture Site A
--- NOTE | 2020-08-09 14:13 | PDOC.HOSPP ---
- Subjective Encounter Date: 08/09/20 Encounter Time: 12:00 Subjective: has sob, is on nasal canula says she does not want to be intubated but chest compressions are ok is on home O2 and amb with walker - Objective Vital Signs & Weight: Vital Signs (12 hours) Temp Pulse Resp BP Pulse Ox 08/09/20 13:53 117 H 19 92 L 08/09/20 10:33 113 H 190/127 H 08/09/20 08:00 98.4 F 95 08/09/20 06:00 98.0 F 08/09/20 04:15 113 H 190/127 H Weight Admit Weight 224 lb 13.944 oz Weight 224 lb 13.944 oz Most Recent Monitor Data Heart Rate from ECG 119 NIBP 188/133 NIBP BP-Mean 151 Respiration from ECG 35 SpO2 78 I&O: 08/08/20 08/09/20 08/10/20 06:59 06:59 06:59 Intake Total 1227 Output Total 350 Balance 877 Result Diagrams: 08/09/20 03:41 08/09/20 03:41 Additional Labs: Accuchecks 08/09/20 08/09/20 08/09/20 10:43 05:40 01:41 POC Glucose 238 H 268 H 258 H Hospitalist ROS - Medication Medications: Active Medications Generic Name Dose Route Start Last Admin Trade Name Freq PRN Reason Stop Dose Admin Diltiazem HCl 120 mg 08/09/20 09:00 08/09/20 10:33 Diltiazem Cd 120 Mg Cap PO 120 mg DAILY DARYL Administration Doxepin HCl 10 mg 08/08/20 21:00 08/08/20 23:47 Doxepin Hcl 10 Mg Cap PO 10 mg HS DARYL Administration Famotidine 20 mg 08/08/20 21:00 08/09/20 10:33 Famotidine/Pf 20 Mg/2ml Vial SLOW IVP 20 mg Q12HR DARYL Administration Gabapentin 300 mg 08/08/20 21:00 08/09/20 10:33 Gabapentin 300 Mg Cap PO 300 mg TID DARYL Administration Sodium Chloride 1,000 mls @ 100 mls/hr 08/08/20 18:30 08/09/20 05:22 Normal Saline 0.9% IV Not Given .Q10H DARYL Cefepime HCl 1 gm/ Sodium 100 mls @ 200 mls/hr 08/08/20 21:00 08/09/20 10:31 Chloride IVPB 100 mls Q12HR DARYL Administration Vancomycin HCl 1.5 gm/ Device 300 mls @ 200 mls/hr 08/09/20 10:00 08/09/20 10:34 IVPB 300 mls 1000,2200 DARYL Administration Insulin Human Lispro 0 units 08/08/20 18:49 08/09/20 05:47 Humalog 300 Units/3 Ml Vial SC 4 units .MILD SLIDING SCALE PRN Administration Mild Correctional Scale Methylprednisolone Sodium Succinate 40 mg 08/08/20 23:59 08/09/20 05:20 Methylprednisolone Sod Succ 40 Mg Vial IVP 40 mg Q6HR DARYL Administration Morphine Sulfate 2 mg 08/09/20 01:07 08/09/20 01:41 Morphine 2 Mg/Ml Vial SLOW IVP 2 mg Q4H PRN Administration Pain Ondansetron HCl 4 mg 08/08/20 23:50 08/09/20 00:39 Ondansetron Pf 4 Mg/2 Ml Vial IVP 4 mg Q6H PRN Administration Nausea/Vomiting - Exam General Appearance: awake alert Eye: PERRL, anicteric sclera ENT: no oropharyngeal lesions, dry oral mucosa Neck: supple, no JVD Heart: RRR, no murmur Respiratory: no wheezes, rales, rhonchi Gastrointestinal: soft, non-tender, non-distended, normal bowel sounds Extremities: no cyanosis, 1+ LE edema Neurological: cranial nerve grossly intact, no focal deficits Psychiatric: A&O x 3 Hosp A/P (1) Acute on chronic respiratory failure with hypoxia Code(s): J96.21 - ACUTE AND CHRONIC RESPIRATORY FAILURE WITH HYPOXIA Status: Acute (2) Pneumonia due to COVID-19 virus Code(s): U07.1 - COVID-19; J12.89 - OTHER VIRAL PNEUMONIA Status: Acute (3) COPD (chronic obstructive pulmonary disease) Status: Chronic Qualifiers: COPD type: chronic bronchitis (4) Obesity Code(s): E66.9 - OBESITY, UNSPECIFIED Status: Chronic Qualifiers: Obesity classification: adult class 3 (BMI >= 40) Body mass index: BMI 40.0-44.9 (5) Diabetes type 2, controlled Code(s): E11.9 - TYPE 2 DIABETES MELLITUS WITHOUT COMPLICATIONS Status: Chronic Qualifiers: Diabetes mellitus retirement insulin use: without termination clerk use (6) GERD (gastroesophageal reflux disease) Code(s): K21.9 - GASTRO-ESOPHAGEAL REFLUX DISEASE WITHOUT ESOPHAGITIS Status: Chronic Qualifiers: Esophagitis presence: esophagitis presence not specified Qualified Code(s): K21.9 - Gastro-esophageal reflux disease without esophagitis (7) Hypertension Code(s): I10 - ESSENTIAL (PRIMARY) HYPERTENSION Status: Chronic Qualifiers: Hypertension type: essential hypertension Qualified Code(s): I10 - Essential (primary) hypertension (8) RUPAL on CPAP Code(s): G47.33 - OBSTRUCTIVE SLEEP APNEA (ADULT) (PEDIATRIC); Z99.89 - DEPENDENCE ON OTHER ENABLING MACHINES AND DEVICES Status: Chronic (9) Pulmonary hypertension Code(s): I27.20 - PULMONARY HYPERTENSION, UNSPECIFIED Status: Chronic (10) Rheumatoid arthritis Code(s): M06.9 - RHEUMATOID ARTHRITIS, UNSPECIFIED Status: Chronic Qualifiers: Rheumatoid arthritis location: unspecified site - Plan will likely need remdesivir, convalescent plasma, await ID/critical care opinion is on cefepime, steroids, nebs, cardizem cd, doxepin, neurontin has large diaphramatic hernia with stomach and abd organs in her left chest stool studies if she has diarrhea, ct shows findings of ?colitis in transverse and desc colon. prongosis guarded she does not want to be intubated, d/w her at bedside she lives with her at home, is on home O2 and cpap.
[2020-08-09] MEDS ORDERED: Lisinopril/Hydrochlorothiazide 20/25 mg Tablet PO SCH (15:15)
[2020-08-09] MEDS: Mometasone 200 MCG/Formoterol 5 MCG 120 PUFF INHALER INH SCH (18:48)
[2020-08-09] MEDS: Hydrocortisone Sod Succ/PF 100 mg/2 ml Vial IVP SCH (19:08)
--- NOTE | 2020-08-09 19:52 | CON ---
DATE OF CONSULTATION: HISTORY OF PRESENT ILLNESS: Fabiana Anand is a 65-year-old morbidly obese patient of Dr. Yanes's, who comes into the hospital last night with increasing shortness of breath. Saturations are 99% on 4 L, temperature is 100, blood pressure 155/109, respiratory rate was 38. She then was swabbed, in which she is positive for coronavirus. X-ray shows diffuse infiltrates. She is now on BiPAP. PAST MEDICAL HISTORY: Coronary artery disease, CHF, VA, diabetes, COPD, RUPAL, rheumatoid arthritis, severe deconditioning. History of asthma. PAST SURGICAL HISTORY: Hysterectomy, abdominal hernia. MEDICATIONS: Home medicines include; 1. Sinequan 10. 2. Mycostatin. 3. DuoNeb. 4. Hydrocodone. 5. Lisinopril. 6. Singulair 10. 7. Reglan. 8. Cardizem 120. She is now on; 1. Vancomycin. 2. Solu-Medrol. 3. Maxipime. 4. Neb treatments. 5. Dulera. 6. I have added vitamin C to present regime. ALLERGIES: METHOTREXATE, PLAQUENIL. PHYSICAL EXAMINATION: VITAL SIGNS: On BiPAP, her saturations are adequate. Pulse respirations are 19, saturations are 93%, blood pressure 130/80. CHEST: Bilateral crackles, wheezing. CARDIAC: Normal S1, normal S2. No gallops. ABDOMEN: No masses. LABORATORY DATA: White count 13,000, hemoglobin and hematocrit are 9 and 31, platelet count . PO2 is 67, pCO2 is 47, pH 7.37, on BiPAP. Lytes are normal. Glucose 238. BNP less than 10. CT chest and abdomen was done last night, shows bilateral ground-glass opacity. No pleural effusion. IMPRESSION: Hoffman positive pneumonia, respiratory failure, morbid obesity, chronic asthma, rheumatoid arthritis, obesity. PLAN: We are going to continue aggressive neb treatments, steroids. If possible, try and prone her if she can tolerate that. We will notify Dr. Yanes. Consultation note 70 minutes, 50% direct patient care. Job ID: [id number]
[2020-08-09] MEDS ORDERED: REMDESIVIR (EUA) 200 MG in Sodium Chloride 0.9% 250 ML 210 ML IV SCH (20:00)
[2020-08-09] MEDS: Doxepin HCl 10 MG CAP PO SCH (21:55)
[2020-08-09] MEDS: Enoxaparin Sodium 40 MG/0.4 ML SYRINGE SC SCH (21:56)
[2020-08-09] MEDS ORDERED: Vancomycin 1.5 GRAM/300 ML BAG 1.5 GM in Premix Bag 1 BAG IVPB SCH (22:00)
[2020-08-10] MEDS: Vancomycin 1.5 GRAM/300 ML BAG 1.5 GM in Premix Bag 1 BAG IVPB SCH ×2 (00:21→09:39)
--- NOTE | 2020-08-10 01:00 | CON ---
DATE OF CONSULTATION: 08/09/2020 REASON FOR CONSULTATION: COVID pneumonia. HISTORY OF PRESENT ILLNESS: A 65-year-old who has a history of COPD, hypertension, RUPAL, and rheumatoid arthritis on Humira and was tested for COVID after daughter found out she was positive. She had been feeling sick since August 07 and developed diarrhea and then a little bit of incontinence and diffuse abdominal discomfort. Apparently, she has had a hernia repair done in December 2019 and has had some abdominal discomfort since. On arrival, she had no chest pain. No headaches. No vomiting. She was usually tachypneic at baseline and she has O2 at home 2 L nasal cannula. On arrival, she was tachycardic, heart rate of 139, BP 150/109, breathing at 38 times a minute, saturating 99% 4 L and had temp of 100.1. Initial white cell count 12.7, platelets 302. Creatinine 0.72 and GFR greater than 90. Chest CT, which showed diffuse bilateral ground-glass opacities. Right now, she is in the IMCU and on BiPAP mask and she is awake, oriented. REVIEW OF SYSTEMS: A 10-point review of system as above. She is voiding on her own in the diaper. PAST MEDICAL HISTORY: COPD, diastolic heart failure, hypertension, RUPAL, rheumatoid arthritis, pulmonary hypertension, GERD, hyponatremia. Her COPD is severe and she uses O2 supplementation at home. SURGICAL HISTORY: Hysterectomy, ventral hernia repair in December this year. SOCIAL HISTORY: Does not smoke. Lives at home with daughter. She is ambulatory with a walker. FAMILY HISTORY: Noncontributory. ALLERGIES: CHLORPROMAZINE, METHOTREXATE, PLAQUENIL. CURRENT MEDICATIONS: Had been on: 1. Prednisone. 2. [place]ham. 3. Ibuprofen. 4. Doxepin. 5. Diltiazem. 6. Metoclopramide. 7. Amitiza. FAMILY HISTORY: Noncontributory. ALLERGIES: HUMIRA, CHLORPROMAZINE, METHOTREXATE, PLAQUENIL. PHYSICAL EXAMINATION: VITAL SIGNS: Temperature 98.6 blood pressure 180/130, pulse 117, O2 saturation 92. Stated that she has a nasal cannula, but when I went to see her, she had a BiPAP mask on. I do not know if that is BiPAP or CPAP. I think it is a BiPAP mask. SKIN: Shows a peripheral IV access. She has no Hurley catheter. EYES: Ocular movements are conjugate. ORAL CAVITY: Normal. LUNGS: With symmetric air entry with faint wheezing scattered. CARDIOVASCULAR: S1-S2 regular rate. ABDOMEN: Soft. Not distended or tender. No ascites. No bladder distention. MUSCULOSKELETAL: No joint inflammatory activity. She moves all extremities equally. NEUROLOGICAL: Cognitive function appears to be intact. LABORATORY DATA: White cell count is 13.7, hemoglobin 9.7, platelets 255, 34% bands. Sodium 140, creatinine 0.79. Liver profile normal. CRP 33. Ferritin 193. D-dimer was not submitted. She is currently on cefepime, Cardizem, Sinequan Lovenox b.i.d. 40 mg, hydrocortisone 100 q.6, vancomycin. The abdomen and pelvis CT had showed some areas of thickening of the pericolonic fat with stranding involving the colon from the level of the distal transverse to the proximal descending. The chest CT showed ground-glass opacities diffusely spread. ASSESSMENT AND PLAN: 1. Chronic obstructive pulmonary disease. 2. Rheumatoid arthritis. 3. Covid 19. This is 4th or 5th day of illness. She is on oxygen supplementation and BiPAP, but I am not sure if this is due to her chronic obstructive pulmonary disease or Covid 19. It could be both. She does have quite a bit of infiltrates consistent with SARS CoV2 infection with pneumonia which is moderate to severe. We will go ahead and start Remdesivir and continue hydrocortisone and Lovenox. Monitor inflammatory markers daily. It looks like she does not want to be intubated. Job ID: [id number] [facility]
[2020-08-10] MEDS: Hydrocortisone Sod Succ/PF 100 mg/2 ml Vial IVP SCH ×4 (02:10→17:12)
[2020-08-10 07:48] LABS: Hemoglobin 9.2 g/dL (12.0-16.0); Mean Corpuscular HGB CONC 30.3 g/dL (32.0-36.0); Mean Corpuscular Hemoglobin 24.3 pg (27.0-31.0); Mean Corpuscular Volume 80.1 fL (78.0-98.0); Mean Platelet Volume 9.5 fL (7.4-10.4); Platelet Count 290 thou/uL (130-400); RBC Distribution Width 19.5 % (11.5-14.5); Red Blood Cell (RBC) Count 3.79 mill/uL (4.20-5.40); White Blood Cell (WBC) Count 15.6 thou/uL (4.8-10.8)
[2020-08-10 07:52] LABS: ALT (SGPT) 28 U/L (8-55); AST (SGOT) 34 U/L (5-34); Albumin 3.2 g/dL (3.4-4.8); Alkaline Phosphatase 65 U/L (40-110); Anion Gap 16 mmol/L (10-20); BUN (Urea Nitrogen) 14 mg/dL (9.8-20.1); Bilirubin, Direct 0.2 mg/dL (0.1-0.3); Bilirubin, Total 0.2 mg/dL (0.2-1.2); CRP (Inflammatory) 21.75 mg/dL (= or < 0.5); Calc. Creatinine Clearance 125 mL/min (70-130); Calcium 8.3 mg/dL (7.8-10.44); Carbon Dioxide 27 mmol/L (23-31); Chloride 105 mmol/L (98-107); Estimated GFR-MDRD Greater than 90; Glucose 230 mg/dL (80-115); Potassium 3.6 mmol/L (3.5-5.1); Protein, Total 6.1 g/dL (6.0-8.3); Sodium 144 mmol/L (136-145)
[2020-08-10] MEDS: Enoxaparin Sodium 40 MG/0.4 ML SYRINGE SC SCH ×2 (08:08→20:41)
[2020-08-10] MEDS: Gabapentin 300 MG CAP PO SCH ×3 (08:08→20:42)
[2020-08-10] MEDS: Famotidine/PF 20 mg/2ml Vial SLOW IVP SCH ×2 (08:09→20:42)
[2020-08-10] MEDS: Cefepime 1 GM in Sodium Chloride 0.9% 100 ML IVPB SCH ×2 (08:10→20:41)
[2020-08-10] MEDS: Mometasone 200 MCG/Formoterol 5 MCG 120 PUFF INHALER INH SCH ×2 (08:40→22:52)
[2020-08-10] MEDS ORDERED: Dexamethasone 4 mg/ml Vial SLOW IVP SCH (09:00)
[2020-08-10 09:07] LABS: Hypochromia SLIGHT = 6-15 cells (100X) (0-5/hpf); Lymphocytes 8 % (21-51); MDiff Complete? YES; Monocytes 3 % (0-10); Neutrophil 88 % (42-75); Platelet Morphology Comment Appears Adequate; Reactive Lymphocytes 1 % (0-10); Target Cells SLIGHT = 2-5 cells (100X) (0-1/hpf)
[2020-08-10] MEDS ORDERED: Lisinopril/Hydrochlorothiazide 20/25 mg Tablet PO SCH (11:45)
[2020-08-10] MEDS: HumaLOG 300 UNITS/3 ML VIAL SC PRN ×2 (14:40→17:13)
--- NOTE | 2020-08-10 15:06 | PDOC.HOSPP ---
- Subjective Encounter Date: 08/10/20 Encounter Time: 09:05 Subjective: is on bipap, awake and oriented c/o difficulty breathing on minimal exertion no nausea, abd pain or chest pain - Objective Vital Signs & Weight: Vital Signs (12 hours) Temp Pulse Resp Pulse Ox 08/10/20 14:22 103 H 37 H 92 L 08/10/20 12:44 92 08/10/20 12:00 97.9 F 08/10/20 08:49 92 29 H 91 L 08/10/20 08:41 97 91 L 08/10/20 08:08 110 H 08/10/20 08:00 98.1 F 95 08/10/20 04:00 98.5 F Weight Admit Weight 224 lb 13.944 oz Weight 224 lb 13.944 oz Most Recent Monitor Data Heart Rate from ECG 115 NIBP 168/91 NIBP BP-Mean 116 Respiration from ECG 30 SpO2 60 I&O: 08/09/20 08/10/20 08/11/20 06:59 06:59 06:59 Intake Total 1227 450 Output Total 350 350 Balance 877 100 Result Diagrams: 08/10/20 07:13 08/10/20 07:13 Additional Labs: Accuchecks 08/10/20 08/10/20 08/10/20 12:58 05:31 00:37 POC Glucose 256 H 227 H 234 H 08/09/20 08/09/20 17:35 17:12 POC Glucose 205 H 222 H Hospitalist ROS - Medication Medications: Active Medications Generic Name Dose Route Start Last Admin Trade Name Freq PRN Reason Stop Dose Admin Albuterol/Ipratropium 3 ml 08/09/20 19:00 08/10/20 14:22 Ipratropium/Albuterol Sulfate 3 Ml Neb NEB 3 ml [id number] DARYL Administration Diltiazem HCl 120 mg 08/09/20 09:00 08/10/20 08:08 Diltiazem Cd 120 Mg Cap PO 120 mg DAILY DARYL Administration Doxepin HCl 10 mg 08/08/20 21:00 08/09/20 21:55 Doxepin Hcl 10 Mg Cap PO 10 mg HS DARYL Administration Enoxaparin Sodium 40 mg 08/09/20 21:00 08/10/20 08:08 Enoxaparin Sodium 40 Mg/0.4 Ml Syringe SC 40 mg 0900,2100 DARYL Administration Famotidine 20 mg 08/08/20 21:00 08/10/20 08:09 Famotidine/Pf 20 Mg/2ml Vial SLOW IVP 20 mg Q12HR DARYL Administration Gabapentin 300 mg 08/08/20 21:00 08/10/20 14:25 Gabapentin 300 Mg Cap PO 300 mg TID DARYL Administration Hydrocortisone Sodium Succinate 100 mg 08/09/20 18:00 08/10/20 12:45 Hydrocortisone Sod Succ/Pf 100 Mg/2 Ml Vial IVP 100 mg Q6H DARYL Administration Cefepime HCl 1 gm/ Sodium 100 mls @ 200 mls/hr 08/08/20 21:00 08/10/20 08:10 Chloride IVPB 100 mls Q12HR DARYL Administration Ascorbic Acid 1,500 mg/ Sodium 53 mls @ 100 mls/hr 08/09/20 18:00 08/10/20 14:24 Chloride IVPB 08/13/20 12:32 53 mls Q6HR DARYL Administration Insulin Human Lispro 0 units 08/08/20 18:49 08/09/20 05:47 Humalog 300 Units/3 Ml Vial SC 4 units .MILD SLIDING SCALE PRN Administration Mild Correctional Scale Mometasone Furoate/Formoterol Fumar 2 puff 08/09/20 18:30 08/10/20 08:40 Mometasone 200 Mcg/Formoterol 5 Mcg 120 Puff Inhaler INH Not Given BID-RT DARYL Morphine Sulfate 2 mg 08/09/20 01:07 08/09/20 16:34 Morphine 2 Mg/Ml Vial SLOW IVP 2 mg Q4H PRN Administration Pain Ondansetron HCl 4 mg 08/08/20 23:50 08/09/20 00:39 Ondansetron Pf 4 Mg/2 Ml Vial IVP 4 mg Q6H PRN Administration Nausea/Vomiting - Exam General Appearance: awake alert Eye: PERRL, anicteric sclera ENT: no oropharyngeal lesions, dry oral mucosa Neck: supple, no JVD Heart: RRR, no murmur Respiratory: no wheezes, rhonchi, wheezes Gastrointestinal: soft, non-tender, non-distended, normal bowel sounds Extremities: no cyanosis, no edema Neurological: cranial nerve grossly intact, no focal deficits Psychiatric: normal affect, A&O x 3 Hosp A/P (1) Acute on chronic respiratory failure with hypoxia Code(s): J96.21 - ACUTE AND CHRONIC RESPIRATORY FAILURE WITH HYPOXIA Status: Acute (2) Pneumonia due to COVID-19 virus Code(s): U07.1 - COVID-19; J12.89 - OTHER VIRAL PNEUMONIA Status: Acute (3) COPD (chronic obstructive pulmonary disease) Status: Chronic Qualifiers: COPD type: chronic bronchitis (4) Obesity Code(s): E66.9 - OBESITY, UNSPECIFIED Status: Chronic Qualifiers: Obesity classification: adult class 3 (BMI >= 40) Body mass index: BMI 40.0-44.9 (5) Diabetes type 2, controlled Code(s): E11.9 - TYPE 2 DIABETES MELLITUS WITHOUT COMPLICATIONS Status: Chronic Qualifiers: Diabetes mellitus prison insulin use: without prison use (6) GERD (gastroesophageal reflux disease) Code(s): K21.9 - GASTRO-ESOPHAGEAL REFLUX DISEASE WITHOUT ESOPHAGITIS Status: Chronic Qualifiers: Esophagitis presence: esophagitis presence not specified Qualified Code(s): K21.9 - Gastro-esophageal reflux disease without esophagitis (7) Hypertension Code(s): I10 - ESSENTIAL (PRIMARY) HYPERTENSION Status: Chronic Qualifiers: Hypertension type: essential hypertension Qualified Code(s): I10 - Essential (primary) hypertension (8) RUPAL on CPAP Code(s): G47.33 - OBSTRUCTIVE SLEEP APNEA (ADULT) (PEDIATRIC); Z99.89 - DEPENDENCE ON OTHER ENABLING MACHINES AND DEVICES Status: Chronic (9) Pulmonary hypertension Code(s): I27.20 - PULMONARY HYPERTENSION, UNSPECIFIED Status: Chronic (10) Rheumatoid arthritis Code(s): M06.9 - RHEUMATOID ARTHRITIS, UNSPECIFIED Status: Chronic Qualifiers: Rheumatoid arthritis location: unspecified site - Plan is on bipap, remdesivir, got convalescent plasma 08/09 needs some bipap breaks for nutrition as tolerated. is on cefepime, steroids, nebs, cardizem cd, doxepin, neurontin, lisinopril/hctz will start low dose iv fluids to avoid dehydration with her being on bipap and also to allow easy expectoration of sputum. has large diaphramatic hernia with stomach and abd organs in her left chest stool studies if she has diarrhea, ct shows findings of ?colitis in transverse and desc colon. prongosis guarded she does not want to be intubated, d/w her at bedside she lives with her at home, is on home O2 and cpap.
[2020-08-10] MEDS: Sodium Chloride 0.9% 1,000 ML IV SCH (17:10)
[2020-08-10] MEDS: REMDESIVIR (EUA) 100 MG in Sodium Chloride 0.9% 250 ML 230 ML IV SCH (20:41)
[2020-08-10] MEDS: Montelukast Sodium 10 mg Tablet PO SCH (20:42)
[2020-08-10] MEDS: Metoclopramide HCl 10 MG TAB PO SCH (20:42)
[2020-08-10] MEDS: Doxepin HCl 10 MG CAP PO SCH (20:42)
[2020-08-10] MEDS ORDERED: Vancomycin 1 GM in Premix Bag 1 BAG IVPB SCH (22:00)
[2020-08-11] MEDS: Hydrocortisone Sod Succ/PF 100 mg/2 ml Vial IVP SCH ×5 (00:13→23:47)
[2020-08-11] MEDS: Acetaminophen 325 MG TAB PO PRN ×2 (00:30→14:04)
[2020-08-11 03:51] LABS: Anion Gap 16 mmol/L (10-20); BUN (Urea Nitrogen) 15 mg/dL (9.8-20.1); Calc. Creatinine Clearance 120 mL/min (70-130); Calcium 8.1 mg/dL (7.8-10.44); Carbon Dioxide 28 mmol/L (23-31); Chloride 104 mmol/L (98-107); Estimated GFR-MDRD Greater than 90; Glucose 260 mg/dL (80-115); Sodium 145 mmol/L (136-145)
[2020-08-11 04:02] LABS: ALT (SGPT) 28 U/L (8-55); AST (SGOT) 33 U/L (5-34); Albumin 3.1 g/dL (3.4-4.8); Alkaline Phosphatase 68 U/L (40-110); Bilirubin, Direct 0.2 mg/dL (0.1-0.3); Bilirubin, Total 0.3 mg/dL (0.2-1.2)
[2020-08-11 04:30] LABS: Band 20 % (5-11); Lymphocytes 3 % (21-51); MDiff Complete? YES; Mean Corpuscular HGB CONC 30.9 g/dL (32.0-36.0); Mean Corpuscular Hemoglobin 24.2 pg (27.0-31.0); Mean Corpuscular Volume 78.3 fL (78.0-98.0); Mean Platelet Volume 9.7 fL (7.4-10.4); Myelocyte 1 % (0-0); Neutrophil 76 % (42-75); Nucleated RBC 1 % (0); Platelet Count 281 thou/uL (130-400); RBC Distribution Width 19.3 % (11.5-14.5); Red Blood Cell (RBC) Count 3.71 mill/uL (4.20-5.40); White Blood Cell (WBC) Count 13.9 thou/uL (4.8-10.8)
--- NOTE | 2020-08-11 08:13 | PDOC.HOSPP ---
- Subjective Encounter Date: 08/11/20 Encounter Time: 11:00 Subjective: Patient with significant WOB all morning. Was able to get meds down, but then had to go right back on Bipap, requiring 100% FiO2. - Objective Vital Signs & Weight: Vital Signs (12 hours) Temp Pulse Resp Pulse Ox 08/11/20 04:00 97.9 F 08/11/20 03:02 101 H 32 H 96 08/11/20 00:00 97.9 F Weight Admit Weight 224 lb 13.944 oz Weight 224 lb 13.944 oz Most Recent Monitor Data Heart Rate from ECG 99 NIBP 173/105 NIBP BP-Mean 127 Respiration from ECG 34 SpO2 100 I&O: 08/10/20 08/11/20 08/12/20 06:59 06:59 06:59 Intake Total 450 Output Total 350 Balance 100 Result Diagrams: 08/11/20 03:25 08/11/20 03:25 Additional Labs: Accuchecks 08/10/20 08/10/20 20:33 12:58 POC Glucose 193 H 256 H Hospitalist ROS - Review of Systems Other: Unable to review due to respiratory distress and Bipap. - Medication Medications: Active Medications Generic Name Dose Route Start Last Admin Trade Name Freq PRN Reason Stop Dose Admin Acetaminophen 650 mg 08/08/20 17:59 08/11/20 00:30 Acetaminophen 325 Mg Tab PO 650 mg Q4H PRN Administration Headache/Fever/Mild Pain (1-3) Albuterol/Ipratropium 3 ml 08/09/20 19:00 08/11/20 05:45 Ipratropium/Albuterol Sulfate 3 Ml Neb NEB Not Given D1MS-WQ DARYL Diltiazem HCl 120 mg 08/09/20 09:00 08/10/20 08:08 Diltiazem Cd 120 Mg Cap PO 120 mg DAILY DARYL Administration Doxepin HCl 10 mg 08/08/20 21:00 08/10/20 20:42 Doxepin Hcl 10 Mg Cap PO 10 mg HS DARYL Administration Enoxaparin Sodium 40 mg 08/09/20 21:00 08/10/20 20:41 Enoxaparin Sodium 40 Mg/0.4 Ml Syringe SC 40 mg 0900,2100 DARYL Administration Famotidine 20 mg 08/08/20 21:00 08/10/20 20:42 Famotidine/Pf 20 Mg/2ml Vial SLOW IVP 20 mg Q12HR DARYL Administration Gabapentin 300 mg 08/08/20 21:00 08/10/20 20:42 Gabapentin 300 Mg Cap PO 300 mg TID DARYL Administration Hydrocortisone Sodium Succinate 100 mg 08/09/20 18:00 08/11/20 05:45 Hydrocortisone Sod Succ/Pf 100 Mg/2 Ml Vial IVP 100 mg Q6H DARYL Administration Cefepime HCl 1 gm/ Sodium 100 mls @ 200 mls/hr 08/08/20 21:00 08/10/20 20:41 Chloride IVPB 100 mls Q12HR DARYL Administration Ascorbic Acid 1,500 mg/ Sodium 53 mls @ 100 mls/hr 08/09/20 18:00 08/11/20 05:45 Chloride IVPB 08/13/20 12:32 53 mls Q6HR DARYL Administration Remdesivir 100 mg/ Sodium 250 mls @ 250 mls/hr 08/10/20 20:00 08/10/20 20:41 Chloride IV 08/13/20 20:59 250 mls 2000 DARYL Administration Sodium Chloride 1,000 mls @ 30 mls/hr 08/10/20 15:15 08/10/20 17:10 Normal Saline 0.9% IV 1,000 mls .Q24H DARYL Administration Insulin Human Lispro 0 units 08/08/20 18:49 08/10/20 17:13 Humalog 300 Units/3 Ml Vial SC 3 units .MILD SLIDING SCALE PRN Administration Mild Correctional Scale Metoclopramide HCl 10 mg 08/10/20 21:00 08/10/20 20:42 Metoclopramide Hcl 10 Mg Tab PO 10 mg TID DARYL Administration Mometasone Furoate/Formoterol Fumar 2 puff 08/09/20 18:30 08/10/20 22:52 Mometasone 200 Mcg/Formoterol 5 Mcg 120 Puff Inhaler INH Not Given BID-RT DARYL Montelukast Sodium 10 mg 08/10/20 21:00 08/10/20 20:42 Montelukast Sodium 10 Mg Tablet PO 10 mg HS DARYL Administration Morphine Sulfate 2 mg 08/09/20 01:07 08/09/20 16:34 Morphine 2 Mg/Ml Vial SLOW IVP 2 mg Q4H PRN Administration Pain Ondansetron HCl 4 mg 08/08/20 23:50 08/09/20 00:39 Ondansetron Pf 4 Mg/2 Ml Vial IVP 4 mg Q6H PRN Administration Nausea/Vomiting - Exam General Appearance: awake alert, ill appearing General - other findings: in resp distress ENT: moist mucosa Heart: RRR, no murmur, no gallops, no rubs Respiratory: tachypneic Respiratory - other findings: bilateral crackles in bases, increased WOB Gastrointestinal: soft, non-tender, non-distended, normal bowel sounds Psychiatric: normal affect, normal behavior Hosp A/P (1) Pneumonia due to COVID-19 virus Code(s): U07.1 - COVID-19; J12.89 - OTHER VIRAL PNEUMONIA Status: Acute (2) Acute on chronic respiratory failure with hypoxia Code(s): J96.21 - ACUTE AND CHRONIC RESPIRATORY FAILURE WITH HYPOXIA Status: Acute (3) COPD (chronic obstructive pulmonary disease) Status: Chronic Qualifiers: COPD type: chronic bronchitis (4) Diastolic congestive heart failure Code(s): I50.30 - UNSPECIFIED DIASTOLIC (CONGESTIVE) HEART FAILURE Status: Chronic (5) RUPAL on CPAP Code(s): G47.33 - OBSTRUCTIVE SLEEP APNEA (ADULT) (PEDIATRIC); Z99.89 - DEPENDENCE ON OTHER ENABLING MACHINES AND DEVICES Status: Chronic (6) Obesity Code(s): E66.9 - OBESITY, UNSPECIFIED Status: Chronic Qualifiers: Obesity classification: adult class 3 (BMI >= 40) Body mass index: BMI 40.0-44.9 (7) Hypokalemia Code(s): E87.6 - HYPOKALEMIA Status: Acute Plan: replacing (8) Diabetes type 2, controlled Code(s): E11.9 - TYPE 2 DIABETES MELLITUS WITHOUT COMPLICATIONS Status: Chr onic Qualifiers: Diabetes mellitus meterman insulin use: without assisted use (9) GERD (gastroesophageal reflux disease) Code(s): K21.9 - GASTRO-ESOPHAGEAL REFLUX DISEASE WITHOUT ESOPHAGITIS Status: Chronic Qualifiers: Esophagitis presence: esophagitis presence not specified Qualified Code(s): K21.9 - Gastro-esophageal reflux disease without esophagitis (10) Hiatal hernia Code(s): K44.9 - DIAPHRAGMATIC HERNIA WITHOUT OBSTRUCTION OR GANGRENE Status: Chronic (11) Hypertension Code(s): I10 - ESSENTIAL (PRIMARY) HYPERTENSION Status: Chronic Qualifiers: Hypertension type: essential hypertension Qualified Code(s): I10 - Essential (primary) hypertension (12) Rheumatoid arthritis Code(s): M06.9 - RHEUMATOID ARTHRITIS, UNSPECIFIED Status: Chronic Qualifiers: Rheumatoid arthritis location: unspecified site - Plan is on bipap, remdesivir, got convalescent plasma 08/09 needs some bipap breaks for nutrition as tolerated, but not tolerating currently. is on cefepime, steroids, nebs, cardizem cd, doxepin, neurontin, lisinopril/hctz, lovenox BID will start low dose iv fluids to avoid dehydration with her being on bipap and also to allow easy expectoration of sputum though will need to watch closely for volume overload with her diastolic CHF has large diaphramatic hernia with stomach and abd organs in her left chest stool studies if she has diarrhea, ct shows findings of ?colitis in transverse and desc colon. prongosis poor, patient likely to pass she does not want to be intubated, d/w her at bedside she lives with her at home, is on home O2 and cpap.
[2020-08-11] MEDS ORDERED: Potassium Chloride 20 MEQ/100 ML PREMIX BAG IVPB SCH (08:15)
[2020-08-11] MEDS: Enoxaparin Sodium 40 MG/0.4 ML SYRINGE SC SCH ×2 (08:30→20:23)
[2020-08-11] MEDS: Metoclopramide HCl 10 MG TAB PO SCH ×3 (08:31→20:23)
[2020-08-11] MEDS: Gabapentin 300 MG CAP PO SCH ×3 (08:31→20:22)
[2020-08-11] MEDS: Famotidine/PF 20 mg/2ml Vial SLOW IVP SCH ×2 (08:31→20:23)
[2020-08-11] MEDS: Cefepime 1 GM in Sodium Chloride 0.9% 100 ML IVPB SCH ×2 (08:39→20:22)
[2020-08-11] MEDS: Lisinopril/Hydrochlorothiazide 20/25 mg Tablet PO SCH (09:44)
[2020-08-11] MEDS: Lubiprostone 24 MCG CAP PO SCH (09:44)
[2020-08-11 09:48] VITALS: BP 185/102
[2020-08-11] MEDS: Morphine 2 MG/ML VIAL SLOW IVP PRN (11:17)
[2020-08-11] MEDS: Mometasone 200 MCG/Formoterol 5 MCG 120 PUFF INHALER INH SCH ×2 (12:05→18:26)
[2020-08-11] MEDS: Ipratropium/Albuterol Sulfate 4 GM AER IH SCH ×2 (13:56→18:27)
[2020-08-11] MEDS ORDERED: Morphine 4 MG/ML VIAL SLOW IVP SCH (14:00)
--- NOTE | 2020-08-11 15:32 | EKG ---
Test Reason : Blood Pressure : / mmHG Vent. Rate : 124 BPM Atrial Rate : 124 BPM P-R Int : 118 ms QRS Dur : 076 ms QT Int : 290 ms P-R-T Axes : 031 009 099 degrees QTc Int : 416 ms Sinus tachycardia T wave abnormality, consider lateral ischemia Abnormal ECG Confirmed by LESLIE TORRES ([id number]), editor magazine DANIELLA CUMMINGS ([id number]) on 08/11/2020 3:32:37 PM Referred By: Confirmed By:LESLIE Burnett
[2020-08-11] MEDS: Sodium Chloride 0.9% 1,000 ML IV SCH (15:49)
[2020-08-11] MEDS: Morphine 4 MG/ML VIAL SLOW IVP PRN ×4 (16:11→23:48)
[2020-08-11] MEDS: Doxepin HCl 10 MG CAP PO SCH (20:22)
[2020-08-11] MEDS: Montelukast Sodium 10 mg Tablet PO SCH (20:23)
--- NOTE | 2020-08-11 20:50 | CON ---
DATE OF CONSULTATION: 08/11/2020 HISTORY OF PRESENT ILLNESS: Ms. Anand is a pleasant 65-year-old female, known her for quite some time. She presented with COVID in the intermediate care unit on BiPAP. She very quickly informed me that she did not want to be on life support. I reassured her we would honor wishes if she got sick enough to need that. Fortunately, at this point in time, she does not appear fatigue. She has also relayed this to her daughter. PAST MEDICAL HISTORY: Remarkable for: 1. Sleep apnea. 2. Chronic obstructive pulmonary disease. 3. Rheumatoid arthritis. 4. Chronic persistent asthma. 5. Coronary artery disease. 6. Status post hysterectomy. 7. History of anemia of chronic disease. 8. Plaquenil, methotrexate, Phenergan, and adalimumab. 9. History of significant deconditioning. 10. Diastolic dysfunction. FAMILY HISTORY: Negative for lung disease in early age. REVIEW OF SYSTEMS: Remarkable only for shortness of breath and a mild cough. Otherwise, negative. PHYSICAL EXAMINATION: JEWEL SIGNS: She is on BiPAP, , respiratory rate 27, oximetry is 89%, blood pressure 181/102, heart rate 105. HEENT: Pupils are equal. Sclerae are anicteric. LUNGS: Remarkable for coarse equal breath sounds. HEART: Regular rhythm. ABDOMEN: Soft. EXTREMITIES: Without asymmetry. IMAGING: CT of the chest done on the , old calcified mediastinal and hilar lymph nodes. She has a huge diaphragmatic defect with a lot of her abdominal contents in her left chest. She has a fatty liver and she had lung parenchymal findings consistent with COVID. IMPRESSION: 1. COVID pneumonia. 2. Extreme deconditioning. 3. Chronic obstructive pulmonary disease and asthma. PLAN: Continue supportive care. Do support her decision to not be mechanically ventilated. I would really do not think given her overall condition that she would ever wean from mechanical ventilation. TIME SPENT: This is a 50-minute consult, 50% of the time spent on the unit coordinating care. Job ID: [id number] [facility]
[2020-08-11] MEDS: REMDESIVIR (EUA) 100 MG in Sodium Chloride 0.9% 250 ML 230 ML IV SCH (23:47)
[2020-08-12] MEDS: Morphine 4 MG/ML VIAL SLOW IVP PRN ×4 (04:00→17:33)
[2020-08-12 04:11] LABS: ALT (SGPT) 29 U/L (8-55); AST (SGOT) 30 U/L (5-34); Albumin 3.2 g/dL (3.4-4.8); Alkaline Phosphatase 77 U/L (40-110); Bilirubin, Direct 0.3 mg/dL (0.1-0.3); Bilirubin, Total 0.4 mg/dL (0.2-1.2); Protein, Total 6.2 g/dL (6.0-8.3)
[2020-08-12 04:15] LABS: Anion Gap 16 mmol/L (10-20); BUN (Urea Nitrogen) 17 mg/dL (9.8-20.1); Calc. Creatinine Clearance 114 mL/min (70-130); Calcium 8.6 mg/dL (7.8-10.44); Carbon Dioxide 30 mmol/L (23-31); Chloride 102 mmol/L (98-107); Estimated GFR-MDRD 87; Glucose 349 mg/dL (80-115); Sodium 146 mmol/L (136-145)
[2020-08-12 04:30] LABS: Potassium 2.4 mmol/L (3.5-5.1)
[2020-08-12 04:38] LABS: Band 11 % (5-11); Hemoglobin 9.2 g/dL (12.0-16.0); Hypochromia SLIGHT = 6-15 cells (100X) (0-5/hpf); Lymphocytes 2 % (21-51); MDiff Complete? YES; Mean Corpuscular HGB CONC 29.8 g/dL (32.0-36.0); Mean Corpuscular Hemoglobin 23.8 pg (27.0-31.0); Monocytes 1 % (0-10); Neutrophil 86 % (42-75); Platelet Count 280 thou/uL (130-400); RBC Distribution Width 19.8 % (11.5-14.5); Red Blood Cell (RBC) Count 3.85 mill/uL (4.20-5.40); Target Cells SLIGHT = 2-5 cells (100X) (0-1/hpf); White Blood Cell (WBC) Count 14.1 thou/uL (4.8-10.8)
[2020-08-12] MEDS ORDERED: Electrolyte Replacement Protocol 1 EACH FS PRN (04:42)
[2020-08-12] MEDS: Hydrocortisone Sod Succ/PF 100 mg/2 ml Vial IVP SCH ×3 (05:05→18:15)
[2020-08-12] MEDS: Potassium Chloride 40 MEQ in Sodium Chloride 0.9% 250 ML 250 ML IVPB SCH ×2 (05:06→08:23)
[2020-08-12] MEDS: Mometasone 200 MCG/Formoterol 5 MCG 120 PUFF INHALER INH SCH ×2 (06:42→18:16)
[2020-08-12] MEDS: HumaLOG 300 UNITS/3 ML VIAL SC PRN (06:49)
[2020-08-12] MEDS: Cefepime 1 GM in Sodium Chloride 0.9% 100 ML IVPB SCH (08:23)
[2020-08-12] MEDS: Lubiprostone 24 MCG CAP PO SCH (08:24)
[2020-08-12] MEDS: Enoxaparin Sodium 40 MG/0.4 ML SYRINGE SC SCH (08:24)
[2020-08-12] MEDS: Famotidine/PF 20 mg/2ml Vial SLOW IVP SCH (08:24)
[2020-08-12] MEDS: Lisinopril/Hydrochlorothiazide 20/25 mg Tablet PO SCH (08:24)
[2020-08-12] MEDS: Metoclopramide HCl 10 MG TAB PO SCH ×2 (08:24→14:25)
[2020-08-12] MEDS: Gabapentin 300 MG CAP PO SCH ×2 (08:25→14:25)
[2020-08-12 11:23] VITALS: TEMP 97.8
[2020-08-12] MEDS: Ipratropium/Albuterol Sulfate 4 GM AER IH SCH ×3 (11:51→14:26)
[2020-08-12] MEDS: Lorazepam 2 MG/ML VIAL SLOW IVP PRN ×2 (14:25→15:18)
[2020-08-12] MEDS: Sodium Chloride 0.9% 1,000 ML IV SCH (14:27)
[2020-08-12] MEDS ORDERED: Lorazepam 2 MG/ML VIAL SLOW IVP SCH (15:15)
[2020-08-12] MEDS ORDERED: Potassium Chloride 40 MEQ in Premix Bag 1 BAG IVPB SCH (15:30)
--- NOTE | 2020-08-12 15:32 | PDOC.HOSPP ---
- Subjective Subjective: Pt was seen and examined, discussed with nursing staff, reports pt took of her BiBAP and became hypoxic and bradycardic and subsequently loss of pulse briefly. As soon as she was placed back on her BiBAP, she recovered. I called and informed her daughter Cinthia, who is well informed of her mother's condition. - Objective Vital Signs & Weight: Vital Signs (12 hours) Temp Pulse Ox 08/12/20 08:00 97.8 F 86 L 08/12/20 04:00 98.2 F 84 L Weight Admit Weight 224 lb 13.944 oz Weight 224 lb 13.944 oz Most Recent Monitor Data Heart Rate from ECG 113 NIBP 171/93 NIBP BP-Mean 119 Respiration from ECG 40 SpO2 80 I&O: 08/11/20 08/12/20 08/13/20 06:59 06:59 06:59 Intake Total 320 1040 Output Total 450 300 Balance -130 740 Result Diagrams: 08/12/20 03:34 08/12/20 03:34 Additional Labs: Accuchecks 08/12/20 08/11/20 06:27 20:30 POC Glucose 346 H 273 H Radiology Reviewed by me: Yes EKG Reviewed by me: Yes Hospitalist ROS - Medication Medications: Active Medications Generic Name Dose Route Start Last Admin Trade Name Freq PRN Reason Stop Dose Admin Acetaminophen 650 mg 08/08/20 17:59 08/11/20 14:04 Acetaminophen 325 Mg Tab PO 650 mg Q4H PRN Administration Headache/Fever/Mild Pain (1-3) Albuterol/Ipratropium 1 gm 08/11/20 13:00 08/12/20 14:26 Ipratropium/Albuterol Sulfate 4 Gm Aer IH 1 inhaler [id number] DARYL Administration Diltiazem HCl 120 mg 08/09/20 09:00 08/12/20 08:24 Diltiazem Cd 120 Mg Cap PO 120 mg DAILY DARYL Administration Doxepin HCl 10 mg 08/08/20 21:00 08/11/20 20:22 Doxepin Hcl 10 Mg Cap PO 10 mg HS DARYL Administration Enoxaparin Sodium 40 mg 08/09/20 21:00 08/12/20 08:24 Enoxaparin Sodium 40 Mg/0.4 Ml Syringe SC 40 mg 0900,2099 DARYL Administration Famotidine 20 mg 08/08/20 21:00 08/12/20 08:24 Famotidine/Pf 20 Mg/2ml Vial SLOW IVP 20 mg Q12HR DARYL Administration Gabapentin 300 mg 08/08/20 21:00 08/12/20 14:25 Gabapentin 300 Mg Cap PO 300 mg TID DARYL Administration Lisinopril/HCTZ 1 tab 08/11/20 09:00 08/12/20 08:24 Lisinopril/Hydrochlorothiazide 20/25 Mg Tablet PO 1 tab DAILY DARYL Administration Hydrocortisone Sodium Succinate 100 mg 08/09/20 18:00 08/12/20 14:26 Hydrocortisone Sod Succ/Pf 100 Mg/2 Ml Vial IVP 100 mg Q6H DARYL Administration Cefepime HCl 1 gm/ Sodium 100 mls @ 200 mls/hr 08/08/20 21:00 08/12/20 08:23 Chloride IVPB 100 mls Q12HR DARYL Administration Ascorbic Acid 1,500 mg/ Sodium 53 mls @ 100 mls/hr 08/09/20 18:00 08/12/20 14:25 Chloride IVPB 08/13/20 12:32 53 mls Q6HR DARYL Administration Remdesivir 100 mg/ Sodium 250 mls @ 250 mls/hr 08/10/20 20:00 08/11/20 23:47 Chloride IV 08/13/20 20:59 250 mls 2000 DARYL Administration Sodium Chloride 1,000 mls @ 30 mls/hr 08/10/20 15:15 08/12/20 14:27 Normal Saline 0.9% IV 1,000 mls .Q24H DARYL Administration Insulin Human Lispro 0 units 08/08/20 18:49 08/12/20 06:49 Humalog 300 Units/3 Ml Vial SC 5 units .MILD SLIDING SCALE PRN Administration Mild Correctional Scale Lorazepam 1 mg 08/12/20 13:38 08/12/20 15:18 Lorazepam 2 Mg/Ml Vial SLOW IVP 1 mg Q4H PRN Administration Anxiety/Agitation Lubiprostone 24 mcg 08/11/20 09:00 08/12/20 08:24 Lubiprostone 24 Mcg Cap PO 24 mcg DAILY DARYL Administration Metoclopramide HCl 10 mg 08/10/20 21:00 08/12/20 14:25 Metoclopramide Hcl 10 Mg Tab PO 10 mg TID DARYL Administration Mometasone Furoate/Formoterol Fumar 2 puff 08/09/20 18:30 08/12/20 06:42 Mometasone 200 Mcg/Formoterol 5 Mcg 120 Puff Inhaler INH Not Given BID-RT DARYL Montelukast Sodium 10 mg 08/10/20 21:00 08/11/20 20:23 Montelukast Sodium 10 Mg Tablet PO 10 mg HS DARYL Administration Morphine Sulfate 4 mg 08/11/20 14:06 08/12/20 12:23 Morphine 4 Mg/Ml Vial SLOW IVP 4 mg Q1H PRN Administration Moderate to Severe Pain (6-10) Ondansetron HCl 4 mg 08/08/20 23:50 08/09/20 00:39 Ondansetron Pf 4 Mg/2 Ml Vial IVP 4 mg Q6H PRN Administration Nausea/Vomiting Sodium Chloride 10 ml 08/08/20 17:59 08/11/20 11:18 Flush - Normal Saline 10 Ml Syringe IVF 10 ml Q12H PRN Administration Saline Flush - Exam General Appearance: NAD Eye: PERRL ENT: normocephalic atraumatic Neck: supple Heart: RRR Respiratory: rhonchi Gastrointestinal: soft Extremities: no cyanosis, no clubbing, no edema Skin: normal turgor Musculoskeletal: normal tone Psychiatric: normal affect, normal behavior Hosp A/P - Plan (1) Pneumonia due to COVID-19 virus Code(s): U07.1 - COVID-19; J12.89 - OTHER VIRAL PNEUMONIA Status: Acute (2) Acute on chronic respiratory failure with hypoxia Code(s): J96.21 - ACUTE AND CHRONIC RESPIRATORY FAILURE WITH HYPOXIA Status: Acute (3) COPD (chronic obstructive pulmonary disease) Status: Chronic Qualifiers: COPD type: chronic bronchitis (4) Diastolic congestive heart failure Code(s): I50.30 - UNSPECIFIED DIASTOLIC (CONGESTIVE) HEART FAILURE Status: Chronic (5) RUPAL on CPAP Code(s): G47.33 - OBSTRUCTIVE SLEEP APNEA (ADULT) (PEDIATRIC); Z99.89 - DEPENDENCE ON OTHER ENABLING MACHINES AND DEVICES Status: Chronic (6) Obesity Code(s): E66.9 - OBESITY, UNSPECIFIED Status: Chronic Qualifiers: Obesity classification: adult class 3 (BMI >= 40) Body mass index: BMI 40.0-44.9 (7) Hypokalemia Code(s): E87.6 - HYPOKALEMIA Status: Acute Plan: replacing (8) Diabetes type 2, controlled Code(s): E11.9 - TYPE 2 DIABETES MELLITUS WITHOUT COMPLICATIONS Status: Chronic Qualifiers: Diabetes mellitus custodial insulin use: without custodial use (9) GERD (gastroesophageal reflux disease) Code(s): K21.9 - GASTRO-ESOPHAGEAL REFLUX DISEASE WITHOUT ESOPHAGITIS Status: Chronic Qualifiers: Esophagitis presence: esophagitis presence not specified Qualified Code(s): K21.9 - Gastro-esophageal reflux disease without esophagitis (10) Hiatal hernia Code(s): K44.9 - DIAPHRAGMATIC HERNIA WITHOUT OBSTRUCTION OR GANGRENE Status: Chronic (11) Hypertension Code(s): I10 - ESSENTIAL (PRIMARY) HYPERTENSION Status: Chronic Qualifiers: Hypertension type: essential hypertension Qualified Code(s): I10 - Essential (primary) hypertension (12) Rheumatoid arthritis Code(s): M06.9 - RHEUMATOID ARTHRITIS, UNSPECIFIED Status: Chronic Qualifiers: Rheumatoid arthritis location: unspecified site - Plan Pt is on maximum therapy including Remdesivir, s/p convalescent plamsa, steroid. She is not tolerating her BiBAP well. Unfortunately, prognosis is poor. I have updated pt's daughter, she is very well informed of her mother's condition and prognosis. She also respect her mom's wishes as she is DNR cont current supportive cares. Appreciate input from all specialists.
--- NOTE | 2020-08-12 17:58 | PRG ---
DATE OF SERVICE: 08/12/2020 SUBJECTIVE: Ms. Anand keeps pulling her mask off. She rapidly desaturates. She actually pulled her mask off once this afternoon and became apneic. The mask was placed back on. She took one breath and then started taking a few more breaths, and the heart rate came back up. I do not feel she is going to survive this mainly because of her severe pre-existing muscle weakness. I saw her in the office recently, and she was in a wheelchair and with clear lungs, but barely functional. OBJECTIVE: VITAL SIGNS: Heart rate is 114, blood pressure 142/89, respiratory rates in the 30s. LUNGS: Unchanged. HEART: Unchanged. ABDOMEN: Unchanged. I was in the room when she pulled her mask off earlier today and put that back on. LABORATORY DATA: White count is 14.1, hemoglobin 9.2, platelets 280,000. Sodium 146, potassium , chloride 102, bicarb 30, BUN 17, and creatinine 0.8. IMPRESSION: 1. COVID pneumonia. 2. Asthma. 3. Rheumatoid arthritis. 4. Severe deconditioning. 5. Obesity. We will continue with supportive care. I do not expect her to survive another 24 hours. Job ID: [id number]
--- NOTE | 2020-08-12 18:57 | PDOC.DS.DS ---
Provider - Provider Date of Admission: 08/08/20 19:32 Date of Discharge: 08/12/20 Admitting Provider: Maya Jaime MD Consultations: Pulmonary Course - Hospital Course Hospital Course: DISCHARGE DIAGNOSES: 1. COVID-19 pneumonia 2. Acute on chronic hypoxic respiratory failure 3. COPD on home O2 4. Chronic diastolic heart failure 5. RUPAL on CPAP 6. Hypokalemia 7. Morbid obesity 8. Diabetes type 2 9. Diaphragmatic hernia, large. 10. Hypertension, essential 11. Rheumatoid arthritis HISTORY OF PRESENT ILLNESS AND BRIEF HOSPITAL COURSE: Patient is unfortunate 65 years old -Irish female who has significant past medical history of COPD on home O2, hypertension, RUPAL, rheumatoid arthritis on Humira, GERD with hiatal hernia, hypertension, chronic diastolic heart failure, who was tested positive for Covid. She has been feeling sick since August 07 and developed diarrhea, and presented to ED with complaint of diffuse abdominal discomfort. She was quite tachypneic on arrival, with oxygen in the upper [address] show diffuse bilateral groundglass opacity. She was subsequently admitted to IMCU, and placed on BiPAP. Patient was started on remdesivir, as well as steroid. Unfortunately, she continued to deteriorate. We have arrested CODE STATUS multiple times with the patient as well as her daughter, and confirmed that she is DNR. She does not want to be on ventilator. And we support her decision, as he had multiple comorbidities, the chance of her getting off of ventilator she is very slim. I have updated her daughters wi th regard to her condition. She is very well aware, and understand her mom prognosis is quite poor, and expecting that her mom will pass, but she is hoping that she will be able to "snap out of it". Patient was peacefully at 1730 on 08/12/2020. Family was notified. DISPOSITION: Pt . Resuscitation Status: 08/11/20 13:41 Resuscitation Status Routine Resuscitation Status: DNAR: NO Resuscitation Discussed with: patient - Labs Lab Results: 08/12/20 03:34 08/12/20 03:34 Abnormal Lab Results - Last 48 hrs 08/11/20 03:25: Potassium 3.0 L 08/11/20 03:25: WBC 13.9 H, RBC 3.71 L, Hgb 9.0 L, Hct 29.1 L, MCH 24.2 L, MCHC 30.9 L, RDW 19.3 H, Neutrophils % (Manual) 76 H, Band Neuts % (Manual) 20 H, Lymphocytes % (Manual) 3 L, Myelocytes % 1 H, Nucleated RBCs # (Man) 1 H 08/11/20 03:25: C-Reactive Protein 12.89 H 08/11/20 03:25: D-Dimer 1.18 H 08/11/20 03:25: Albumin 3.1 L 08/12/20 03:34: Sodium 146 H, Potassium 2.4 L* 08/12/20 03:34: WBC 14.1 H, RBC 3.85 L, Hgb 9.2 L, Hct 30.8 L, MCH 23.8 L, MCHC 29.8 L, RDW 19.8 H, Neutrophils % (Manual) 86 H, Lymphocytes % (Manual) 2 L 08/12/20 03:34: C-Reactive Protein 22.16 H 08/12/20 03:34: D-Dimer 1.20 H 08/12/20 03:34: Albumin 3.2 L Microbiology - Entire Visit 08/08/20 18:34 Venous blood - Right Arm Blood Culture - Preliminary NO GROWTH AT 48 HOURS 08/08/20 18:34 Venous blood - Left Hand Blood Culture - Preliminary NO GROWTH AT 48 HOURS - Physical Exam Vitals: Vital Signs (12 hours) Temp Pulse Resp Pulse Ox 08/12/20 16:00 72 L 08/12/20 15:59 114 H 38 H 71 L 08/12/20 08:00 97.8 F 86 L Weight Admit Weight 224 lb 13.944 oz Weight 224 lb 13.944 oz Most Recent Monitor Data Heart Rate from ECG 114 NIBP 142/89 NIBP BP-Mean 106 Respiration from ECG 38 SpO2 66 Physical Exam: Pt . please refer to pronouncement note for details. Plan - Discharge Medications Home Medications: Medication Instructions Recorded Confirmed Type Ipratropium/Albuterol Sulfate 3 ml NEB Q4HR PRN 04/26/15 08/09/20 History [DuoNeb] Doxepin HCl [Sinequan] 10 mg PO HS PRN 01/04/19 08/09/20 History Diltiazem HCl [Cardizem CD] 120 mg PO DAILY 05/04/19 08/09/20 History HYDROcodone Bit/APAP 7.5/325 1 tab PO Q6HR PRN 05/04/19 08/09/20 History [Flomot] Lisinopril/Hydrochlorothiazide 1 tablet PO DAILY 05/04/19 08/09/20 History [Lisinopril-Hctz 20-25 mg Tab] Lubiprostone [Amitiza] 24 mcg PO DAILY 11/21/19 08/09/20 History Montelukast Sodium [Singulair] 10 mg PO DAILY 11/21/19 08/09/20 History Acetaminophen [Tylenol Extra 1 tablet PO PRN PRN 08/09/20 08/09/20 History Strength] Ibuprofen 1 tablet PO Q8HR 08/09/20 08/09/20 History Metoclopramide HCl 1 tablet PO TID 08/09/20 08/09/20 History Nystatin [Mycostatin Powder] 1 applic TOP PRN PRN 08/09/20 08/09/20 History Silver Sulfadiazine [Silvadene 1 applic TOP BID 08/09/20 08/09/20 History Cream] Allergies: adalimumab [From Humira] Allergy (Verified 11/21/19 10:32) severe gi upset anemia chlorpromazine HCl [From Thorazine] Allergy (Verified 11/21/19 10:32) hallucination methotrexate Allergy (Verified 11/21/19 10:32) anemia plaquinil Allergy (Uncoded 01/04/19 10:47) anemia - Follow up Plan Disposition: Quality - Care Measures CORE MEASURES:: N/A
[2020-08-13] MEDS ORDERED: Potassium Chloride 20 MEQ TAB PO SCH (08:00)
== END 2020-08-12 17:30 | disposition expired | DRG 871 ==
LOC: ERS 13:47 → IMCU/EMU 19:32
PROVIDERS: ADMIT Internal Medicine; ATTEND Family Medicine
PROC: 8E0ZXY6 Isolation (ICD-10-PCS; 2020-08-08)
PROC: 5A09457 Assistance with Respiratory Ventilation, 24-96 Consecutive Hours, Continuous Positive Airway Pressure (ICD-10-PCS; principal; 2020-08-09)
PROC: XW033E5 Introduction of Remdesivir Anti-infective into Peripheral Vein, Percutaneous Approach, New Technology Group 5 (ICD-10-PCS; 2020-08-09)
PROC: XW13325 Transfusion of Convalescent Plasma (Nonautologous) into Peripheral Vein, Percutaneous Approach, New Technology Group 5 (ICD-10-PCS; 2020-08-09)
DX: A41.89 Other specified sepsis (principal); U07.1 COVID-19; J12.89 Other viral pneumonia; J96.21 Acute and chronic respiratory failure with hypoxia; I50.32 Chronic diastolic (congestive) heart failure; J44.0 Chronic obstructive pulmonary disease with (acute) lower respiratory infection; Z68.41 Body mass index [BMI] 40.0-44.9, adult; I25.10 Atherosclerotic heart disease of native coronary artery without angina pectoris; E11.9 Type 2 diabetes mellitus without complications; E87.6 Hypokalemia; R53.81 Other malaise; Z66 Do not resuscitate; G47.33 Obstructive sleep apnea (adult) (pediatric); I11.0 Hypertensive heart disease with heart failure; R19.7 Diarrhea, unspecified; I27.20 Pulmonary hypertension, unspecified; K21.9 Gastro-esophageal reflux disease without esophagitis; K44.9 Diaphragmatic hernia without obstruction or gangrene; M06.9 Rheumatoid arthritis, unspecified; E66.01 Morbid (severe) obesity due to excess calories; I25.2 Old myocardial infarction; Z90.710 Acquired absence of both cervix and uterus; Z88.8 Allergy status to other drugs, medicaments and biological substances; Z79.899 Other long term (current) drug therapy; Z79.51 Long term (current) use of inhaled steroids; Z99.81 Dependence on supplemental oxygen; Z20.828 Contact with and (suspected) exposure to other viral communicable diseases
CPT/HCPCS: 36415; 36416; 71045; 71275; 74177; 80048; 80053; 80076; 80202; 81001; 82553; 82607; 82728; 82746; 82805; 83540; 83550; 83605; 83615; 83690; 83735; 83880; 84443; 84484; 85025; 85379; 86140; 87040; 87635; 93005; 94640; 94660; J0692; J1650; J1720; J2060; J2270; J2405; J2920; J3370; J3480; J3490; J7030; J7050; J7620; Q9967; S0028; U0003